=== PATIENT | female | born 1975 | race African-American/Black ===

== ENCOUNTER 2016-10-10 14:08 | Emergency (ER) | payer OTHER ==
[~2016-10-10] VITALS: Ht 162.6 cm; Wt 115.2 kg
[~2016-10-10 14:08] MED LIST: COLD MEDICINE OR; FLEXERIL OR; MOTR200T4 PO; MULTIVIT PO; NAPR500T OR; TRAM50TA2 OR
[2016-10-10 14:43] VITALS: BP 131/64
[2016-10-10] MEDS ORDERED: VITA200028 PO (14:49)
[2016-10-10] MEDS ORDERED: SUMA100T2 PO (14:49)
[2016-10-10] MEDS ORDERED: TOPI200T4 PO (14:49)
[2016-10-10] MEDS ORDERED: PRIL20TA2 PO (14:49)
[2016-10-10] MEDS ORDERED: TRAZ10TA GT (14:49)
[2016-10-10] MEDS ORDERED: AUGM875T27 PO (16:24)
== END 2016-10-10 16:32 | disposition home or self-care (01) ==
LOC: M ED 16:23
DX: L03.032 Cellulitis of left toe (principal); Z79.899 Other long term (current) drug therapy

== ENCOUNTER → 2016-10-29 | Outpatient (CLI) | payer OTHER ==
[~2016-10-29] MED LIST changes: +AUGM875T27 PO; +PRIL20TA2 PO; +SUMA100T2 PO; +TOPI200T4 PO; +TRAZ10TA GT; +VITA200028 PO
[2016-10-29 14:11] LABS: BASO % 0.2 % (0.0-1.0); EOS # 0.1 K/mm3 (0.0-0.50); EOS % 1.9 % (0.0-3.0); LARGE UNSTAINED CELL # 0.1 K/mm3 (0.0-0.4); LYMPH # 1.5 K/mm3 (1.5-4.5); LYMPH % 20.9 % (24.0-44.0); MEAN CORPUSCULAR HGB CONC 31.6 g/dl (32.0-36.5); MEAN CORPUSCULAR VOLUME 91.7 fl (80.0-96.0); MONO # 0.3 K/mm3 (0.0-0.8); MONO % 4.7 % (0.0-5.0); NEUTROPHILS # 5.1 K/mm3 (1.8-7.7); NEUTROPHILS % 71.4 % (36.0-66.0); PLATELET COUNT, AUTOMATED 260 k/mm3 (150-450); RED CELL DISTRIBUTION WIDTH 13.2 % (11.5-14.5); WHITE BLOOD COUNT 7.1 K/mm3 (4.0-10.0)
[2016-10-29 14:25] LABS: ALBUMIN 3.8 GM/DL (3.2-5.2); ALBUMIN/GLOBULIN RATIO 1.03 (1.00-1.93); ALKALINE PHOSPHATASE 83 U/L (45-117); ALT/SGPT 19 U/L (12-78); ANION GAP 8 MEQ/L (8-16); AST/SGOT 17 U/L (15-37); BILIRUBIN,TOTAL 0.7 MG/DL (0.2-1.0); BLOOD UREA NITROGEN 14 MG/DL (7-18); CALCIUM LEVEL 8.9 MG/DL (8.5-10.1); CARBON DIOXIDE LEVEL 25 MEQ/L (21-32); CHLORIDE LEVEL 109 MEQ/L (98-107); CHOLESTEROL LEVEL 160 MG/DL (<200); CREATININE FOR GFR 0.95 MG/DL (0.55-1.02); FREE T4 0.91 NG/DL (0.76-1.46); GLOMERULAR FILTRATION RATE > 60.0 (>58); GLUCOSE, FASTING 81 MG/DL (70-105); POTASSIUM SERUM 3.8 MEQ/L (3.5-5.1); SODIUM LEVEL 142 MEQ/L (136-145); TOTAL PROTEIN 7.5 GM/DL (6.4-8.2); TRIGLYCERIDES LEVEL 47 MG/DL (<150); VITAMIN B12 LEVEL 1155 PG/ML
== END ==
LOC: M LAB 13:10
PROVIDERS: ATTEND Family Medicine
DX: E55.9 Vitamin D deficiency, unspecified (principal)

== ENCOUNTER 2017-03-21 08:20 | Emergency (ER) | payer OTHER ==
[~2017-03-21] VITALS: Ht 162.6 cm; Wt 111.4 kg
[~2017-03-21 08:20] MED LIST changes: -AUGM875T27 PO; +AUGM875T28 PO; -TOPI200T4 PO; +TOPI200T7 PO
--- NOTE | 2017-03-21 10:19 | REP ---
Left foot four views : There is no fracture or dislocation. Mineralization and joint spaces are normal. There are no calcifications or foreign bodies. Impression: Negative left foot. There is no change from 03/31/2016. . Signed by Otoniel Clark MD 03/21/2017 10:09 A
[2017-03-21] MEDS ORDERED: NAPR500T PO (10:29)
[2017-03-21 10:38] VITALS: BP 135/76
== END 2017-03-21 10:40 | disposition home or self-care (01) ==
LOC: M ED 08:20
DX: S93.602A Unspecified sprain of left foot, initial encounter (principal); X58.XXXA Exposure to other specified factors, initial encounter; Y92.89 Other specified places as the place of occurrence of the external cause; Y93.89 Activity, other specified; Y99.9 Unspecified external cause status

== ENCOUNTER 2017-04-10 20:39 | Emergency (ER) | payer OTHER ==
[~2017-04-10] VITALS: Ht 162.6 cm; Wt 236.0 kg
[2017-04-10] MEDS ORDERED: KETOROLAC 30 MG/ML VIAL (J1885) IV ONE (21:15)
[2017-04-10 22:07] LABS: BASO % 0.4 % (0.0-1.0); EOS # 0.3 K/mm3 (0.0-0.50); EOS % 2.6 % (0.0-3.0); LARGE UNSTAINED CELL # 0.2 K/mm3 (0.0-0.4); LYMPH # 2.7 K/mm3 (1.5-4.5); LYMPH % 24.2 % (24.0-44.0); MEAN CORPUSCULAR HEMOGLOBIN 29.7 pg (27.0-33.0); MEAN CORPUSCULAR HGB CONC 32.2 g/dl (32.0-36.5); MEAN CORPUSCULAR VOLUME 92.3 fl (80.0-96.0); MONO # 0.4 K/mm3 (0.0-0.8); MONO % 4.2 % (0.0-5.0); NEUTROPHILS # 6.7 K/mm3 (1.8-7.7); NEUTROPHILS % 66.6 % (36.0-66.0); PLATELET COUNT, AUTOMATED 245 k/mm3 (150-450); RED CELL DISTRIBUTION WIDTH 13.2 % (11.5-14.5); WHITE BLOOD COUNT 10.1 K/mm3 (4.0-10.0)
[2017-04-10 22:26] LABS: ALBUMIN/GLOBULIN RATIO 1.18 (1.00-1.93); ALKALINE PHOSPHATASE 64 U/L (45-117); ALT/SGPT 28 U/L (12-78); AMYLASE 73 U/L (25-115); ANION GAP 9 MEQ/L (8-16); AST/SGOT 20 U/L (15-37); BILIRUBIN,DIRECT 0.2 MG/DL (0.0-0.2); BILIRUBIN,TOTAL 0.8 MG/DL (0.2-1.0); BLOOD UREA NITROGEN 11 MG/DL (7-18); CALCIUM LEVEL 8.6 MG/DL (8.5-10.1); CARBON DIOXIDE LEVEL 27 MEQ/L (21-32); CHLORIDE LEVEL 106 MEQ/L (98-107); CREATININE FOR GFR 0.76 MG/DL (0.55-1.02); GLOMERULAR FILTRATION RATE > 60.0 (>58); GLUCOSE, FASTING 73 MG/DL (70-105); POTASSIUM SERUM 3.7 MEQ/L (3.5-5.1); SODIUM LEVEL 142 MEQ/L (136-145); TOTAL PROTEIN 7.4 GM/DL (6.4-8.2)
--- NOTE | 2017-04-10 22:44 | REP ---
Clinical: Acute right lower quadrant pain. Findings: Evaluation is limited by the lack of oral and IV contrast material as well as relative paucity of intraperitoneal fat. Lung bases are clear. Visualized heart and pericardium grossly normal. Liver, spleen, pancreas, gallbladder, bilateral adrenal glands and kidneys are relatively normal for noncontrast evaluation. Renal hypodensities suggest cysts and may be correlated with ultrasound as necessary. The enteric system is without obstruction or obvious acute inflammatory process. A normal terminal ileum and appendix are identified in the right lower quadrant. Colonic and sigmoid diverticulosis noted without obvious acute diverticulitis. Pelvis demonstrates partially collapsed normal bladder and age-appropriate uterus/adnexa. Calcifications in the pelvis likely represent phleboliths although small ureteral calcification cannot be excluded and may warrant correlation with urinalysis. No ascites. No free air. Small 2 cm supraumbilical ventral hernia (image 62). Surrounding musculoskeletal structures without focal osseous abnormality. Impression: 1. Significantly limited examination due to the lack of contrast material and relative paucity of intraperitoneal fat. No definite acute abdominopelvic pathology appreciated. 2. Normal appendix and right lower quadrant. No free fluid. 3. Suspected renal hypodensities compatible with cysts may be corroborated by ultrasound as necessary. 4. Small fat containing supraumbilical ventral hernia without adjacent inflammatory stranding. 5. Calcifications in the pelvis likely represent phleboliths as no obvious hydroureteronephrosis is appreciated. However correlation with physical examination and urinalysis may be warranted. Signed by Jesus Ashford MD 04/10/2017 10:36 P
[2017-04-10] MEDS ORDERED: NAPR500T PO (23:10)
[2017-04-10] MEDS ORDERED: traMADol 50 MG TAB (BULK 4 TAB ED) PO ONE (23:15)
[2017-04-10 23:16] VITALS: BP 132/88
--- NOTE | 2017-04-11 09:40 | ED PDOC ---
Post-Departure Follow-Up radiology report faxed to Marci Ramirez Sarah MD Apr 11, 2017 09:40
== END 2017-04-10 23:37 | disposition home or self-care (01) ==
LOC: M ED 20:39
DX: R10.2 Pelvic and perineal pain (principal); Z72.0 Tobacco use
CPT/HCPCS: 74177; 80048; 80076; 81001; 82150; 83690; 85025; 87491; 87591; 96374; 99283; J1885

== ENCOUNTER → 2017-04-10 | Outpatient (REF) | payer OTHER ==
[~2017-04-10] MED LIST changes: +NAPR500T PO
== END ==
LOC: M SFHCLERA 19:38
PROVIDERS: ATTEND Nurse Practitioner Family
DX: R10.9 Unspecified abdominal pain (principal)

== ENCOUNTER → 2017-05-28 | Outpatient (CLI) | payer OTHER ==
[~2017-05-28] MED LIST changes: +ISOVUE-370 76% 100ML VIAL (Q9967) As Ordered ONE
--- NOTE | 2017-05-29 09:20 | REP ---
Clinical: Abnormal weight loss. Technique: Axial contrast enhanced images from the thoracic inlet to the upper abdomen using 100 ml Isovue 370 intravenous contrast material with coronal and sagittal re-formations. Comparison: 04/02/2008. Findings: The bilateral lung randolph are well-aerated, symmetric and clear. No focal consolidation, nodule or mass lesion. No pleural effusion/reaction or pneumothorax. Tracheobronchial tree is patent. No axillary, hilar, or mediastinal adenopathy. The mediastinum demonstrates normal thoracic aorta, pulmonary vasculature and heart/pericardium. Impression: No acute mediastinal or pleuroparenchymal process. Signed by Jesus Ashford MD 05/29/2017 09:11 A
== END ==
LOC: M RAD 14:57
PROVIDERS: ATTEND Family Medicine
DX: R63.4 Abnormal weight loss (principal)
CPT/HCPCS: 71260; Q9967

== ENCOUNTER → 2017-05-29 | Outpatient (CLI) | payer OTHER ==
[~2017-05-29] MED LIST changes: -ISOVUE-370 76% 100ML VIAL (Q9967) As Ordered ONE
--- NOTE | 2017-05-30 08:31 | REP ---
Clinical: Followup renal cyst. Comparison: CT dated 04/10/2017. Technique: Real time samson scale and color evaluation using curved array transducer. Findings: The right kidney is normal in contour, size, echogenicity, and reniform shape without hydronephrosis, nephrolithiasis, cystic or renal mass lesion. Right kidney measures 9.8 x 6.6 x 5.0 cm. The left kidney is somewhat limited in evaluation due to adjacent bowel gas obscuring the upper pole. The kidney measures approximately 10.9 x 5.5 x 4.8 cm without evidence for hydronephrosis, nephrolithiasis or perinephric collection. The 2.0 x 1.8 x 1.9 cm simple cyst is identified along the lower pole of the left kidney. A vague hyperechoic upper pole lesion from the left kidney cannot be excluded based on current examination. Impression: 1. Normal right kidney 2. Left kidney is somewhat incompletely evaluated due to overlying bowel gas and includes a 2.0 cm simple left lower pole cyst. However left upper pole lesion cannot be excluded. Given the technical difficulties with this exam, pre and postcontrast CT of the abdomen may be warranted for further investigation. Signed by Jesus Ashford MD 05/30/2017 08:22 A
== END ==
LOC: M RAD 09:52
PROVIDERS: ATTEND Family Medicine
DX: N28.1 Cyst of kidney, acquired (principal)

== ENCOUNTER → 2017-07-18 | Outpatient (CLI) | payer OTHER ==
[~2017-07-18] MED LIST changes: +GASTROGRAFIN SOLUTION 30ML (Q9963) As Ordered ONE; +ISOVUE-370 76% 100ML VIAL (Q9967) As Ordered ONE
--- NOTE | 2017-07-19 07:34 | REP ---
CONTRAST CT ABDOMEN AND PELVIS: CLINICAL: Abdominal pain and weight loss. TECHNIQUE: Axial contrast enhanced images from the lung bases to the pubic symphysis (per protocol) 100 mL Isovue 370 intravenous contrast material with precontrast images of the abdomen as well as coronal and sagittal reformations. COMPARISON: 04/10/2017 FINDINGS: The lungs bases demonstrate small subpleural noncalcified densities which may reflect scarring/mild dependent atelectasis. Visualized portion of the heart and pericardium are normal. The liver, spleen, pancreas, gallbladder, bilateral adrenal glands and kidneys are relatively normal/stable. Incidental renal hypodensities measuring up to 2.5 cm compatible with cysts. The enteric system is without obstruction or acute inflammatory process. The pelvis demonstrates normal bladder and age appropriate uterus and adnexa. No ascites. No free air. No adenopathy. Normal abdominal aorta. No aneurysm or dissection. Musculoskeletal structures are intact. IMPRESSION: Renal hypodensities compatible with cysts. No further acute abdominopelvic pathology appreciated. Signed by Jesus Ashford MD 07/19/2017 08:15 A
== END ==
LOC: M RAD 10:30
PROVIDERS: ATTEND Family Medicine
DX: R63.4 Abnormal weight loss (principal)
CPT/HCPCS: 74178; Q9963; Q9967

== ENCOUNTER 2017-08-23 06:29 | Emergency (ER) | payer OTHER ==
[2017-08-23] MEDS: MORPHINE 10 MG/ML 1ML VIAL IM (07:40)
== END 2017-08-23 08:38 | disposition home or self-care (01) ==
LOC: M ED 06:29
DX: G89.18 Other acute postprocedural pain (principal); G47.33 Obstructive sleep apnea (adult) (pediatric); K21.9 Gastro-esophageal reflux disease without esophagitis; F17.210 Nicotine dependence, cigarettes, uncomplicated; Z79.899 Other long term (current) drug therapy; Z98.890 Other specified postprocedural states
CPT/HCPCS: 96372

== ENCOUNTER 2017-09-09 14:16 | Emergency (ER) | payer OTHER ==
[2017-09-09 18:25] LABS: INFLUENZA A AMPLIFICATION NEGATIVE (NEGATIVE); INFLUENZA B AMPLIFICATION NEGATIVE (NEGATIVE)
== END 2017-09-09 18:58 | disposition home or self-care (01) ==
LOC: M ED 14:16
DX: R19.7 Diarrhea, unspecified (principal); J02.9 Acute pharyngitis, unspecified; G47.33 Obstructive sleep apnea (adult) (pediatric); K21.9 Gastro-esophageal reflux disease without esophagitis; F41.9 Anxiety disorder, unspecified; F33.9 Major depressive disorder, recurrent, unspecified; F17.210 Nicotine dependence, cigarettes, uncomplicated; Z79.899 Other long term (current) drug therapy
CPT/HCPCS: 87502

== ENCOUNTER → 2017-12-17 | Outpatient (REF) | payer OTHER ==
[2017-12-17 18:22] LABS: CONTROL LINE HCG INT CTR LINE PRESENT; HCG, SERUM QUALITATIVE NEGATIVE (NEGATIVE)
== END ==
LOC: M LABNEURO 13:10
DX: R11.0 Nausea (principal)

== ENCOUNTER 2018-02-22 10:26 | Emergency (ER) | payer OTHER | END 2018-02-22 11:17 | disposition home or self-care (01) | LOC: M ED 10:26 | DX: L02.211 Cutaneous abscess of abdominal wall (principal); K21.9 Gastro-esophageal reflux disease without esophagitis; F41.9 Anxiety disorder, unspecified; F32.9 Major depressive disorder, single episode, unspecified; G43.909 Migraine, unspecified, not intractable, without status migrainosus; F17.200 Nicotine dependence, unspecified, uncomplicated; Z79.899 Other long term (current) drug therapy | CPT/HCPCS: 99282 ==

== ENCOUNTER 2018-03-01 00:42 | Emergency (ER) | payer OTHER ==
[2018-03-01] MEDS: ACETAMINOPHEN 325 MG TAB PO (01:40)
[2018-03-01] MEDS: traMADol 50 MG TAB PO (01:41)
== END 2018-03-01 02:08 | disposition home or self-care (01) ==
LOC: M ED 00:42
DX: M17.12 Unilateral primary osteoarthritis, left knee (principal); M25.562 Pain in left knee; Z79.899 Other long term (current) drug therapy
CPT/HCPCS: 73564

== ENCOUNTER 2018-03-21 10:56 | Emergency (ER) | payer MEDICAID, OTHER | END 2018-03-21 12:47 | disposition home or self-care (01) | LOC: M ED 10:56 | DX: M65.272 Calcific tendinitis, left ankle and foot (principal); G43.909 Migraine, unspecified, not intractable, without status migrainosus; G47.33 Obstructive sleep apnea (adult) (pediatric); K21.9 Gastro-esophageal reflux disease without esophagitis; F41.9 Anxiety disorder, unspecified; F33.9 Major depressive disorder, recurrent, unspecified; Z79.899 Other long term (current) drug therapy; F17.210 Nicotine dependence, cigarettes, uncomplicated | CPT/HCPCS: 73630 ==

== ENCOUNTER → 2018-07-09 | Outpatient (CLI) | payer OTHER, MEDICAID ==
[2018-07-09 12:14] LABS: HEPATITIS C VIRUS ABY INDEX 0.1 INDEX (<0.8)
[2018-07-09 12:14] LABS: HIV 1&2 SCREEN CENTAUR NEGATIVE (NEGATIVE)
== END ==
LOC: M LAB 10:33
DX: Z11.3 Encounter for screening for infections with a predominantly sexual mode of transmission (principal)
CPT/HCPCS: 86803

== ENCOUNTER → 2018-07-21 | Outpatient (CLI) | payer OTHER, MEDICAID ==
[2018-07-21 17:26] LABS: APPEARANCE, URINE CLEAR (CLEAR); BACTERIA, URINE AUTO NEGATIVE (NEGATIVE); BILIRUBIN, URINE AUTO NEGATIVE (NEGATIVE); BLOOD, URINE BLOOD NEGATIVE (NEGATIVE); COLOR, URINE YELLOW (YELLOW); GLUCOSE, URINE (UA) AUTO NEGATIVE (NEGATIVE); KETONE, URINE AUTO NEGATIVE (NEGATIVE); LEUKOCYTE ESTERASE, URINE AUTO NEGATIVE (NEGATIVE); NITRITE, URINE AUTO NEGATIVE (NEGATIVE); PROTEIN, URINE AUTO NEGATIVE (NEGATIVE); RBC, URINE AUTO 1 /HPF (0-3); SPECIFIC GRAVITY URINE AUTO 1.018 (1.002-1.035); SQUAMOUS EPITHELIAL CELL UR AU 2 /HPF (0-6); UROBILINOGEN, URINE AUTO 0.2 mg/dL (0.0-2.0); WBC, URINE AUTO 1 /HPF (0-3)
[2018-07-21 17:29] LABS: BASO % 0.6 % (0.0-1.0); EOS # 0.2 10^3/uL (0.0-0.50); EOS % 2.9 % (0.0-3.0); HEMATOCRIT 39.2 % (36.0-47.0); HEMOGLOBIN 12.5 g/dl (12.0-15.5); IMMATURE GRANULOCYTE % 0.2 % (0-3.0); LYMPH # 2.2 10^3/uL (1.5-4.5); LYMPH % 33.1 % (24.0-44.0); MEAN CORPUSCULAR HEMOGLOBIN 29.1 pg (27.0-33.0); MEAN CORPUSCULAR HGB CONC 31.9 g/dl (32.0-36.5); MEAN CORPUSCULAR VOLUME 91.2 fl (80.0-96.0); MONO # 0.4 10^3/uL (0.0-0.8); MONO % 6.6 % (0.0-5.0); NEUTROPHILS # 3.8 10^3/uL (1.8-7.7); NEUTROPHILS % 56.6 % (36.0-66.0); PLATELET COUNT, AUTOMATED 254 10^3/uL (150-450); RED CELL DISTRIBUTION WIDTH 12.7 % (11.5-14.5); WHITE BLOOD COUNT 6.6 10^3/uL (4.0-10.0)
[2018-07-21 17:53] LABS: ALBUMIN 3.7 GM/DL (3.2-5.2); ALKALINE PHOSPHATASE 76 U/L (45-117); ALT/SGPT 21 U/L (12-78); ANION GAP 6 MEQ/L (8-16); AST/SGOT 17 U/L (7-37); BILIRUBIN,TOTAL 0.5 MG/DL (0.2-1.0); BLOOD UREA NITROGEN 14 MG/DL (7-18); CALCIUM LEVEL 9.1 MG/DL (8.5-10.1); CARBON DIOXIDE LEVEL 29 MEQ/L (21-32); CHLORIDE LEVEL 104 MEQ/L (98-107); CHOLESTEROL LEVEL 182 MG/DL (<200); CHOLESTEROL RISK RATIO 3.568 (<5); CREATININE FOR GFR 0.76 MG/DL (0.55-1.30); FREE T4 0.81 NG/DL (0.76-1.46); GLOMERULAR FILTRATION RATE > 60.0 (>58); GLUCOSE, FASTING 69 MG/DL (70-100); HDL CHOLESTEROL 51 MG/DL (>40); LDL CHOLESTEROL 119 MG/DL (<100); NON-HDL-C 131 MG/DL; POTASSIUM SERUM 4.4 MEQ/L (3.5-5.1); SODIUM LEVEL 139 MEQ/L (136-145); THYROID STIMULATING HORMONE 0.684 uIU/ML (0.358-3.740); TOTAL 25(OH) VITAMIN D 29.8 NG/ML (30.0-100.0); TOTAL PROTEIN 7.4 GM/DL (6.4-8.2); TRIGLYCERIDES LEVEL 62 MG/DL (<150); VITAMIN B12 LEVEL 668 PG/ML (247-911)
[2018-07-21 18:07] LABS: ESTIMATED AVERAGE GLUCOSE 103 MG/DL (60-110); HEMOGLOBIN A1c 5.2 %
== END ==
LOC: M LRY 11:33
DX: K21.9 Gastro-esophageal reflux disease without esophagitis (principal); E55.9 Vitamin D deficiency, unspecified; G47.33 Obstructive sleep apnea (adult) (pediatric)
CPT/HCPCS: 84443

== ENCOUNTER 2019-02-12 00:50 | Emergency (ER) | payer OTHER, MEDICAID ==
[~2019-02-12] VITALS: Ht 162.6 cm; Wt 126.4 kg
[2019-02-12 00:50] VITALS: BP 139/66
[~2019-02-12 00:50] MED LIST changes: +AMOX500C PO; +BACT800T5 PO; -GASTROGRAFIN SOLUTION 30ML (Q9963) As Ordered ONE; -ISOVUE-370 76% 100ML VIAL (Q9967) As Ordered ONE; +JENC0.35 PO; +LEVOTAB10 PO; +LIDO1SOL8 MT; +MOBI4TAB PO; +NAPR-837 PO; -NAPR500T PO; +NORE0.353 PO; +OXYC-517 PO; +VITA50005 PO; +ZOFR4TAB14 PO; +ZYRT10CA PO
[2019-02-12] MEDS ORDERED: PREV1CAP PO (00:58)
== END 2019-02-12 01:48 | disposition left against medical advice (07) ==
LOC: M ED 00:50
DX: S30.854A Superficial foreign body of vagina and vulva, initial encounter (principal); Y92.9 Unspecified place or not applicable; Y93.9 Activity, unspecified; Y99.9 Unspecified external cause status; Z53.21 Procedure and treatment not carried out due to patient leaving prior to being seen by health care provider

== ENCOUNTER 2019-02-12 07:33 | Emergency (ER) | payer MEDICAID, OTHER ==
[~2019-02-12] VITALS: Ht 162.6 cm; Wt 125.3 kg
[~2019-02-12 07:33] MED LIST changes: +PREV1CAP PO
[2019-02-12 07:34] VITALS: BP 117/71
== END 2019-02-12 08:23 | disposition home or self-care (01) ==
LOC: M ED 07:33
DX: S30.854A Superficial foreign body of vagina and vulva, initial encounter (principal); X58.XXXA Exposure to other specified factors, initial encounter; Y92.9 Unspecified place or not applicable; Y93.89 Activity, other specified; Y99.9 Unspecified external cause status; K21.9 Gastro-esophageal reflux disease without esophagitis; G47.30 Sleep apnea, unspecified; F41.9 Anxiety disorder, unspecified; F32.9 Major depressive disorder, single episode, unspecified; Z72.0 Tobacco use; Z79.899 Other long term (current) drug therapy

== ENCOUNTER → 2019-04-08 | Outpatient (CLI) | payer OTHER ==
[2019-04-08 13:05] LABS: BASO % 0.5 % (0.0-1.0); EOS # 0.2 10^3/uL (0.0-0.50); EOS % 3.9 % (0.0-3.0); HEMATOCRIT 37.6 % (36.0-47.0); HEMOGLOBIN 12.1 g/dl (12.0-15.5); LYMPH # 1.7 10^3/uL (1.5-4.5); LYMPH % 28.2 % (24.0-44.0); MEAN CORPUSCULAR HEMOGLOBIN 28.6 pg (27.0-33.0); MEAN CORPUSCULAR HGB CONC 32.2 g/dl (32.0-36.5); MEAN CORPUSCULAR VOLUME 88.9 fl (80.0-96.0); MONO # 0.3 10^3/uL (0.0-0.8); MONO % 5.5 % (0.0-5.0); NEUTROPHILS # 3.8 10^3/uL (1.8-7.7); NEUTROPHILS % 61.7 % (36.0-66.0); PLATELET COUNT, AUTOMATED 232 10^3/uL (150-450); RED BLOOD COUNT 4.23 10^6/uL (4.00-5.40); WHITE BLOOD COUNT 6.1 10^3/uL (4.0-10.0)
[2019-04-08 13:17] LABS: INR 1.09; PROTHROMBIN TIME 13.8 SECONDS (11.8-14.0)
[2019-04-08 13:18] LABS: PARTIAL THROMBOPLASTIN TIME 28.1 SECONDS (25.0-38.4)
[2019-04-08 13:33] LABS: ALBUMIN 3.6 GM/DL (3.2-5.2); ALT/SGPT 23 U/L (12-78); BILIRUBIN,TOTAL 0.5 MG/DL (0.2-1.0); BLOOD UREA NITROGEN 12 MG/DL (7-18); C REACTIVE PROTEIN QUANTITATIV < 0.30 MG/DL (0.00-0.30); CALCIUM LEVEL 9.1 MG/DL (8.5-10.1); CARBON DIOXIDE LEVEL 29 MEQ/L (21-32); CHLORIDE LEVEL 108 MEQ/L (98-107); CREATININE FOR GFR 0.88 MG/DL (0.55-1.30); FERRITIN 31 NG/ML (8-252); GLOMERULAR FILTRATION RATE > 60.0 (>58); GLUCOSE, FASTING 87 MG/DL (70-100); IRON (FE) 88 UG/DL (50-170); PERCENT SATURATION 25.2 % (13.2-45.0); POTASSIUM SERUM 3.8 MEQ/L (3.5-5.1); PTH INTACT 20.9 PG/ML (18.5-88.0); SODIUM LEVEL 142 MEQ/L (136-145); THYROID STIMULATING HORMONE 0.381 uIU/ML (0.358-3.740); TOTAL IRON BINDING CAPACITY 349 UG/DL (250-450); TOTAL PROTEIN 7.1 GM/DL (6.4-8.2); VITAMIN B12 LEVEL 410 PG/ML (247-911)
[2019-04-08 13:38] LABS: ERYTHROCYTE SEDIMENTATION RATE 8 mm/hr (0-20)
[2019-04-08 17:35] LABS: COLLAGEN EPINEPHRINE 93 SECONDS (74-162)
[2019-04-11 00:06] LABS: ANTINUCLEAR ANTIBODIES DIRECT Negative (Negative); F8 ACTIVITY FOR F8 PANEL 114 % (56-140); F8 ACTIVITY vWB FOR F8 PANEL 151 % (50-200); F8 ANTIGEN FOR F8 PANEL 154 % (50-200)
== END ==
LOC: M LAB 11:55
PROVIDERS: ATTEND Family Medicine
DX: M85.80 Other specified disorders of bone density and structure, unspecified site (principal); R23.3 Spontaneous ecchymoses; F33.9 Major depressive disorder, recurrent, unspecified

== ENCOUNTER → 2019-06-30 | Outpatient (CLI) | payer OTHER, MEDICAID ==
--- NOTE | 2019-07-07 04:07 | ECWPNPC ---
PATIENT NAME: MARIOLA MG : 1975 GENDER: FEMALE VISIT DATE: 06/30/2019 DISCHARGE DATE: 06/30/19 1645 VISIT LOCKED DATE TIME: PHYSICIAN: JENA AHUMADA MD RESOURCE: JENA AHUMADA MD REASON FOR APPOINTMENT 1. LBP/KNEES/FEET PAIN HISTORY OF PRESENT ILLNESS PAIN SCREENING: PATIENT HAS A COMPLAINT OF ACUTE OR CHRONIC PAIN :YES 43 YEAR OLD FEMALE PATIENT WITH A HISTORY OF CHRONIC LOW BACK, KNEES, AND FEET PAIN. THE PATIENT DESCRIBES THE PAIN ACHING, SORE, AND CONTINUOUS WITH A PAIN SCORE OF 6-10/10 DEPENDING ON PHYSICAL ACTIVITY. THE PATIENT STATES HER PAIN IS AFFECTING HER ABILITY TO PERFORM HER DAILY ACTIVITIES SUCH WORKING, MOVING AROUND, STANDING FOR TOO LONG, AND CLEANING HER HOUSE. THE PATIENT SAYS SHE IS BEING FOLLOWED BY [facility] AND BY HER DOCTOR IN HEATH. THE PATIENT SAYS SHE RECEIVED INJECTION THERAPY IN THE PAST THAT RESULTED IN MAKING HER PAIN WORSE. PATIENT DENIES UNEXPLAINABLE WEIGHT LOSS, FEVER, CHILLS, NEW CHANGES ON HER URINARY OR BOWEL CONTROL. FALL RISK SCREENING: SCREENING :NO FALLS REPORTED IN THE LAST YEAR CURRENT MEDICATIONS TAKING VITAMIN D 70892 U TABLET 1 TABLET ORALLY MONTHLY TAKING SUMATRIPTAN _ SOLUTION ORALLY PRN TAKING PREVACID 30 MG CAPSULE DELAYED RELEASE 1 CAPSULE ORALLY BID, NOTES: TAKES 40 MG BID TAKING MAY USE 1 TAB ORALLY ZYZAL PO DAILY AT HS TAKING ZYRTEC ALLERGY 10 MG TABLET 1 TABLET ORALLY ONCE DAILY NEEDED MEDICATION LIST REVIEWED AND RECONCILED WITH THE PATIENT PAST MEDICAL HISTORY OBESITY GERD MIGRAINES KNEE AND FOOT PAIN ALLERGIES N.K.D.A. SURGICAL HISTORY BREAST REDUCTION 08/2016 FAMILY HISTORY FATHER: ALIVE MOTHER: , DIAGNOSED WITH DIABETES SIBLINGS: ALIVE 2 BROTHER(S) . 2 SON(S) - HEALTHY. MOTHER- CANCER FATHER CANCER 1 BROTHER ASTHMA, DIABETES. SOCIAL HISTORY GENERAL: TOBACCO USE ARE YOU A:CURRENT SOME DAY SMOKER SMOKING CESSATION INFORMATION GIVEN06/30/2019 HIV / HEP-C SCREENING HIV TEST OFFERED TO PATIENT:YES DATE OFFERED:04/10/2017 TEST ACCEPTED:NO HEP-C TEST OFFERED TO PATIENT:NO REASON:PATIENT DECLINED OTHERS AT HOME: CHILDREN. HOUSING: RENTS APARTMENT. EDUCATION LEVEL OF EDUCATION:NOT FINISHED HIGH SCHOOL DIET: REGULAR. LANGUAGE LANGUAGES SPOKEN:PALESTINIAN DOMESTIC VIOLENCE STATUS:SINGLE DO YOU FEEL SAFE IN YOUR ENVIRONMENT?YES NEW PATIENT PAIN DIARY TODAY'S VISITNOTES PATIENT DESCRIBES PAIN :ACHING, HAVE IT ALL THE TIME, SORE WAKES ME UP FROM SLEEP FROM 0-10, WHAT LEVEL IS YOUR PAIN TODAY?7 PRECIPITATING FACTORS STANDING, BENDING, STRETCHING, PUTTING PRESSURE ON THEM ALLEVIATING FACTORS ICE ON FEET AND KNEES, BRACE ON RIGHT FOOT IMPACT ON FUNCTION ONLY ABLE TO WORK ABOUT 4 HOURS IS THERE A CHANCE YOU COULD BE ?NO HAVE YOU BEEN SICK IN THE LAST WEEK (COLD, COUGH, FEVER, FLU, ETC)YES COLD DO YOU TAKE ANY BLOOD THINNERS?NO DO YOU HAVE ANY RASHES OR OPEN SORES?NO ANY CHANGE IN BOWEL OR BLADDER CONTROL?NO ARE YOU ALLERGIC TO SHELLFISH OR IV DYE?NO ARE YOU DIABETIC?NO DO YOU HAVE A PACEMAKER OR DEFIBRILLATOR?NO ANY NEW PROBLEMS WITH MEDICINES OR NEW ALLERGIESNO HAVE YOU FALLEN IN THE LAST 6 MONTHS?NO DO YOU USE ANY TYPE OF TOBACCO (SMOKE, SMOKELESS, CHEW, ETC.)YES ARE YOU ABUSED, NEGLECTED, OR IN AN UNSAFE ENVIRONMENT?NO DO YOU HAVE THOUGHTS OF HURTING YOURSELF OR SOMEONE ELSE?NO DO YOU NEED ANY PRESCRIPTIONS?YES DO YOU HAVE ANY OTHER QUESTIONS OR CONCERNS?YES OPTIONS FOR PAIN CONTROL INTENSITY SCALE REVIEWEDNUMBER RECREATIONAL DRUG USE DRUG USE?YES HOW OFTEN AND HOW MUCH? SOCIALLY, AT LEAST ONCE A MONTH SMOKES TIMBO, STATES IT HAS BEEN EVERY WEEKEND LATELY, LAST SMOKED ON SATURDAY EXERCISE: NO REGULAR EXERCISE. LEARNING BARRIERS / SPECIAL NEEDS BARRIERS TO LEARNING?NO HEARING IMPAIRED?NO VISION IMPAIRED?YES COGNITIVELY IMPAIRED?NO :CORRECTIVE LENSES GLASSES READINESS TO LEARN?YES LEARNING PREFERENCES?NO LEARNING CAPABILITIES PRESENT?YES EMOTIONAL BARRIERS?NO SPECIAL DEVICES?NO SPRAY GUN STRIPER NEEDED?NO PAIN CLINIC PFS, CLERGY, PUBLIC HEALTH REFERRALS PFS REFERRAL NEEDED?NO CLERGY REFERRAL NEEDED?NO PUBLIC HEALTH REFERRAL NEEDED?NO WAS THE PROVIDER NOTIFIED OF ANY PERTINENT INFO?YES HAS THE PATIENT BEEN EDUCATED REGARDING HIS/HER PLAN OF CARE?YES HAS THE PATIENT BEEN EDUCATED REGARDING PAIN, THE RISK FOR PAIN, THE IMPORTANCE OF EFFECTIVE PAIN MANAGEMENT, AND THE PAIN ASSESSMENT PROCESS?YES LATEX QUESTIONNAIRE LATEX ALLERGY : HAVE YOU EVER DEVELOPED ANY TYPE OF REACTION AFTER HANDLING LATEX PRODUCTS SUCH RUBBER GLOVES, CONDOMS, DIAPHRAGMS, BALLOONS, SOCKS, OR UNDERWEAR?NO LATEX ALLERGY : HAVE YOU EVER DEVELOPED ANY TYPE OF REACTION DURING OR AFTER DENTAL APPOINTMENT, VAGINAL/RECTAL EXAMINATION, SURGICAL PROCEDURE, OR ANY OTHER EXPOSURE?NO LATEX RISK : HAVE YOU EVER HAD ANY DIFFICULTY BREATHING OR HIVES AFTER EATING OR HANDLING ANY FRUITS, OR VEGETABLES; SUCH KIWI, BANANAS, STONE FRUITS, OR CHESTNUTSNO LATEX RISK : DO YOU HAVE A PREVIOUS PERSONAL HISTORY OF MORE THAN NINE SURGERIES, SPINA BIFIDA, OR REPEATED CATHERIZATIONS? NO LATEX RISK : ARE YOU FREQUENTLY EXPOSED TO LATEX PRODUCTS IN YOUR OCCUPATION?NO DATE ASKED : 06/30/2019 CAFFEINE CAFFEINE USE?NO ADVANCE DIRECTIVE ADVANCE DIRECTIVE DISCUSSED WITH PATIENT:NO STATES SHE HAS NO ADVANCED DIRECTIVES AND DECLINES INFORMATION AT THIS TIME 06/30/19 [facility] [place] NO LUTHERAN BELIEFS THAT WOULD IMPACT HEALTH CARE. MARITAL STATUS: SINGLE. ALCOHOL SCREENING DID YOU HAVE A DRINK CONTAINING ALCOHOL IN THE PAST YEAR?YES HOW OFTEN DID YOU HAVE A DRINK CONTAINING ALCOHOL IN THE PAST YEAR?MONTHLY OR LESS (1 POINT) HOW MANY DRINKS DID YOU HAVE ON A TYPICAL DAY WHEN YOU WERE DRINKING IN THE PAST YEAR?1 OR 2 (0 POINTS) HOW OFTEN DID YOU HAVE SIX OR MORE DRINKS ON ONE OCCASION IN THE PAST YEAR?NEVER (0 POINTS) POINTS1 INTERPRETATIONNEGATIVE OCCUPATION: RETAIL. HOSPITALIZATION/MAJOR DIAGNOSTIC PROCEDURE CHILDBIRTH REVIEW OF SYSTEMS REVIEWED BY: PROVIDER: JENA AHUMADA MD . CONSTITUTIONAL: ANY CHANGE IN YOUR MEDICAL CONDITION? NO . CHILLS NO . FEVER NO . INFECTION: DO YOU HAVE NEW INFECTIONS? NO . DO YOU HAVE HISTORY OF MRSA? NO . MUSCULOSKELETAL: ANY NEW PATTERNS OF PAIN OR NUMBNESS? NO . SYTEMIC LUPUS NO . GASTROENTEROLOGY: ANY NEW CHANGE IN BOWEL CONTROL? NO . BARRETTS ESOPHAGUS NO . CIRRHOSIS NO . HEPATITIS NO . LIVER FAILURE NO . ACID REFLUX YES . UNEXPLAINED WEIGHT LOSS NO . GENITOURINARY: ANY NEW CHANGE IN BLADDER CONTROL? NO . IS THERE A CHANCE YOU COULD BE ? NO . HEMATOLOGY/LYMPH: DO YOU TAKE ANY BLOOD THINNERS? (FOR EXAMPLE- COUMADIN, PLAVIX, AGGRENOX, PLATEL, PRADAXA, OR XARELTO) NO . WHEN WAS YOUR LAST DOSE? DATE: TIME: . LOW PLATELET COUNT NO . SICKLE CELL DISEASE NO . VON WILLIEBRANDS NO . FACTOR V LEIDEN NO . THALLASEMIA NO . ANEMIA YES- CHILDHOOD . EASY BRUISING NO . NEUROLOGY: HAVE YOU FALLEN IN THE PAST 12 MONTHS? NO . ANY NEW EXTREMITY NUMBNESS OR WEAKNESS? NO . HEAD INJURY NO . DEMENTIA NO . CEREBRAL PALSY NO . MULTIPLE SCLEROSIS NO . DIZZINESS NO . HEADACHE ADMITS- MIGRAINES . STROKES NO . VERTIGO NO . CARDIOLOGY: DO YOU HAVE A PACEMAKER OR DEFIBRILLATOR? NO . ANGINA NO . HEART ATTACK NO . HEART SURGERY NO . CONGESTIVE HEART FAILURE/FLUID OVERLOAD NO . CHEST PAIN NO . HIGH BLOOD PRESSURE NO . IRREGULAR HEART BEAT NO . RESPIRATORY: HAVE YOU BEEN SICK IN THE PAST WEEK? NO . FEVER NO . FLU LIKE SYMPTOMS? NO . CPAP YES . BYPAP NO . ASTHMA NO . EMPHYSEMA NO . CHRONIC LUNG DISEASES NO . SHORTNESS OF BREATH ON EXERTION NO . COUGH NO . SNORING NO . INTEGUMENTARY: DO YOU HAVE ANY RASHES OR OPEN SORES? NO . ALLERGIC/IMMUNO: ARE YOU ALLERGIC TO IV DYE? NO . ANY NEW ALLERGIES? NO . PSYCHIATRIC: DO YOU HAVE THOUGHTS OF HURTING YOURSELF OR SOMEONE ELSE? NO . ARE YOU ABUSED, NEGLECTED, OR IN AN UNSAFE ENVIRONMENT? NO . ENDOCRINOLOGY: ARE YOU DIABETIC? NO . THYROID DISORDER NO . OTHER: DO YOU NEED ANY PRESCRIPTIONS? NO . IF YES, PLEASE LIST: ____ . ANY NEW PROBLEMS WITH YOUR MEDICATIONS? NO . WHEN DID YOU LAST EAT? ____ . WHEN DID YOU LAST DRINK? ____ . WHAT DID YOU LAST DRINK? ____ . NAME OF PERSON DRIVING YOU HOME? ____ . DO YOU HAVE ANY OTHER QUESTIONS OR CONCERNS NO . VITAL SIGNS WT 288.6 LBS, HT 64 IN, BMI 49.53 INDEX, BP 129/68 MM HG, HR 81 /MIN, RR 18 /MIN, TEMP 96.5 F, OXYGEN SAT % 100%, SAFE IN ENV? (Y/N) YES, NA INITIALS AW 1516, REVIEWED BY: RAMEZ. EXAMINATION GENERAL EXAMINATION: PATIENT IS ALERT O X 3 AND COOPERATIVE. LUNGS CLEAR, TO AUSCULTATION. HEART: NO MURMURS OR GALLOPS; FACIAL CRANIAL NERVES ARE GROSSLY NORMAL. GOOD SYMMETRY OF FACIAL MUSCLE MOVEMENT. NORMAL VISUAL WAN. TENDERNESS OVER THE PARASPINAL MUSCLE GROUP OF THE LOW BACK. PAIN INCREASES OVER THE LUMBAR FACET JOINTS WITH EXTENSION AND LATERAL ROTATION OF THE BACK. ANTALGIC WALK. NOTES FROM THE PATIENT'S REFERRING PHYSICIAN IS PRESENT IN THE PATIENT'S CHART. ASSESSMENTS LOW BACK PAIN - M54.5 (PRIMARY) OTHER CHRONIC PAIN - G89.29 R/O FACET ARTHROPATHY. TREATMENT LOW BACK PAIN CLINICAL NOTES: WE DISCUSSED SEVERAL ISSUES WITH MS. MG'S PAIN MANAGEMENT CASE. I DISCUSSED WITH THE PATIENT ABOUT THE OPTION OF PERFORMING DIAGNOSTIC FACET BLOCKS TO CONSIDER RADIOFREQUENCY IN THE FUTURE, AND IN ORDER TO MOVE FORWARD WITH THESE PROCEDURES I WOULD HAVE TO ORDER A LUMBAR SPINE MRI. THE PATIENT REPORTS HAVING TRIED INJECTION INTERVENTIONS IN THE PAST, AND IS INTERESTED IN MEDICATION MANAGEMENT FOR THE MOMENT. THEREFORE, I WILL REFER THE PATIENT TO [facility]'S PALLIATIVE CARE STAR PROGRAM TO CONSIDER MEDICATION MANAGEMENT. THE PATIENT WAS ADVISED TO CALL NEEDED TO BE SEEN FOR INJECTION THERAPY HERE, AND I WILL NEED TO ORDER A LUMBAR SPINE MRI FOR HER IN ORDER TO WORK WITH HER FACET JOINTS. INSTRUCTIONS WERE GIVEN, QUESTIONS WERE ANSWERED, PATIENT REPORTS UNDERSTANDING AND AGREES WITH THE PLAN. I, CLAIRE RDZ, DOCUMENTED THE ABOVE INFORMATION ACTING A SCRIBE FOR DR. AHUMADA. I HAVE REVIEWED THE ABOVE DOCUMENT, WRITTEN BY CLAIRE DEANIBCrason AND I VERIFY THAT IT IS ACCURATE. DEAR HEIDY OLIVIER MD: THANK YOU FOR YOUR KIND REFERRAL OF MARIOLA MG. IF YOU WANT TO DISCUSS HER CASE WITH ME PLEASE CALL ME AT THE PAIN CENTER AT [phone]. SINCERELY, JENA AHUMADA MD PAIN MEDICINE . PROCEDURE CODES FA211 ESTABILISHED PATIENT [facility] FACILITY CHARGE G8427 CURRENT MEDS W/DOSAGES DOCUMENTED G8730 PAIN ASSESS POS TOOL F/U PLAN DOC DISPOSITION & COMMUNICATION FOLLOW UP REASON: REFER TO PALLIATIVE CARE FOR MED MANAGE/CALL NEEDED ELECTRONICALLY SIGNED BY JENA AHUMADA MD, MD ON 07/06/2019 AT 02:31 PM EST DISCLAIMER : THIS IS A VISIT SUMMARY EXTRACTED FROM THE [facility] CHART. IT IS NOT A COPY OF THE [facility] PROGRESS NOTE. MTDD
== END ==
LOC: M PAIN 15:30
PROVIDERS: ATTEND Anesthesiology
DX: M54.5 Low back pain (principal); G89.29 Other chronic pain

== ENCOUNTER → 2019-08-09 | Outpatient (REF) | payer OTHER, MEDICAID | LOC: M SFHCLERA 11:30 | PROVIDERS: ATTEND Physician Assistant | DX: R10.31 Right lower quadrant pain (principal) ==

== ENCOUNTER 2020-04-11 15:56 | Emergency (ER) | payer OTHER, MEDICAID ==
[~2020-04-11] VITALS: Ht 162.6 cm; Wt 128.6 kg
[~2020-04-11 15:56] MED LIST changes: -LIDO1SOL8 MT; +LIDO2SOL17 MT; -TRAZ10TA GT; +TRAZ1TAB12 GT
[2020-04-11] MEDS ORDERED: OXYC1TAB23 PO (16:10)
[2020-04-11] MEDS ORDERED: SM S1TAB6 PO (16:11)
[2020-04-11] MEDS ORDERED: NAPR-837 PO (18:44)
[2020-04-11] MEDS ORDERED: ROBA750T4 PO (18:44)
[2020-04-11] MEDS ORDERED: LIDO3CRE14 TOP (18:44)
[2020-04-11] MEDS ORDERED: BIOF4GEL4 TOP (18:44)
[2020-04-11] MEDS ORDERED: diazePAM 10 MG TAB PO ONE (18:45)
[2020-04-11] MEDS ORDERED: LIDOCAINE 4% CREAM 5GM (LMX4) TOP ONE (18:45)
[2020-04-11] MEDS ORDERED: KETOROLAC 60MG 2ML VIAL IM ONE (18:45)
[2020-04-11] MEDS ORDERED: methocarbamoL 750 MG TAB PO ONE (18:45)
[2020-04-11 19:20] VITALS: BP 128/86
== END 2020-04-11 19:40 | disposition home or self-care (01) ==
LOC: M ED 15:56
DX: M54.2 Cervicalgia (principal); K21.9 Gastro-esophageal reflux disease without esophagitis; G47.30 Sleep apnea, unspecified; Z79.899 Other long term (current) drug therapy
CPT/HCPCS: 96372; 99283; J1885

== ENCOUNTER → 2020-09-07 | Outpatient (CLI) | payer OTHER, MEDICAID ==
[~2020-09-07] MED LIST changes: +BIOF4GEL4 TOP; +LIDO3CRE14 TOP; +OXYC1TAB23 PO; +ROBA750T4 PO; +SM S1TAB6 PO
== END ==
LOC: M LABSMTC 11:25
PROVIDERS: ATTEND Anesthesiology
DX: Z01.812 Encounter for preprocedural laboratory examination (principal); Z20.822 Contact with and (suspected) exposure to COVID-19

== ENCOUNTER 2020-09-12 08:37 | Day surgery (SDC) | payer OTHER ==
[~2020-09-12] VITALS: Ht 162.6 cm; Wt 135.1 kg
[~2020-09-12 08:37] MED LIST changes: +NS 1,000 ML IV ONE
--- OUTSIDE RECORDS SUMMARY | 2020-09-12 08:42 | CCD | Continuity of Care Document ---
Author Author Sintia RAMIREZ M.D. Organization Unknown Address [address] [place] [address] Phone [phone] Care Team Providers Care Supply Room Clerk Name Role Phone Marc Ramirez M.D. AUTM [phone] [facility] AUTM [phone] [facility] AUTM [phone] [facility] AUTM [phone] [facility] AUTM [phone] [facility] Outpatient Mental Health AUTM [phone] [facility] AUTM [phone] [facility] AUTM [phone] [facility] AUTM [phone] [facility] Gastroenterology AUTM [phone] Francesco Gandhi AUTM [phone] Problems Active Problems Provider Date Gastroesophageal reflux disease Marc Ramirez MD Onset: 0 10/22/2016 Migraine without aura, not refractory Marc Ramirez MD On set: 10/22/2016 Insomnia Marc Ramirez MD Onset: 10/22/2016 Vitamin D deficiency Marc Ramirez MD Onset: 10/22/2016 Dystrophia unguium Marc Ramirez MD Onset: 01/17/2017 Abnormal menstrual cycle Marc Ramirez MD Onset: 01/18/20 17 Acquired renal cystic disease Marc Ramirez MD Onset: 07/2017 Recurrent major depressive episodes Marc Ramirez MD Onse t: 04/23/2017 Reduction mammoplasty, bilateral Megha Jaya'KATIA ghosh Onset: 10/31/2017 Note: 08/29 [place] Social History Type Date Description Comments Sex Unknown Tobacco Use Start: Unknown Never Smoked Cigarettes Tobacco Use Start: Unknown Never Smoked Cigars Tobacco Use Start: Unknown Never Smoked A Pipe Tobacco Use Start: Unknown Never Used Smokeless Tobacco ETOH Use Occasionally consumes alcohol Recreational Drug Use Denies Drug Use Tobacco Use Start: Unknown End: Patient is a former smoker quit 2019 in Sep Allergies, Adverse Reactions, Alerts Active Allergies Reaction Severity Comments Date NKFA 10/22/2016 NKEA 10/22/2016 Clean And Clear Sensitive Skin Urticaria due to str ess breaks out 01/09/2018 Dermorphism Urticaria itch/ hives due to stress an xiety 01/09/2018 Inactive Allergies NKDA 10/22/2016 Seasonal stress bring on rash.hives 0 01/09/2018 Medications Active Medications SIG Qnty Indications Ordering Provide r Date Metrogel-Vaginal 0.75% Gel 1 applicator at bedtime x 10 days or twice a day for 5 days 70gm Xavier on Waldemar Foley M.D. 06/20/2020 Eq Senna-S 8.6-50mg Tablets take 1 tablet by mouth once daily 90tabs K59.00 Marc Ramirez MD 02/16/20 20 Vitamin D (Ergocalciferol) 1.25mg (28128 Ut) Capsules take 1 capsule by mouth once a month 3caps E55.9 Rajat Ramirez MD 11/12/2019 Sumatriptan Succinate 6mg/0.5ML Solution Auto-Inject inject 0.5ml sc as needed migraine, may repeat 1 dose after 1 hour. migraines per month - 4+ (Neurologist) Unkn own Prevacid 30mg Capsules DR take one tablet by mouth once daily as needed Unknown Oxycodone-Acetaminophen 5-325mg Ta blets Take 1 Tablet By Mouth Three Times Daily as Needed For Pain . DO Not Exceed 3 Per24 Hours Unknown Levocetirizine Dihydrochloride 5mg Tablets Take 1 Tablet By Mouth Once Daily In The Evening Unknown Immunizations Description No Information Available Vital Signs Date Vital Result Comment 08/24/2020 1:01pm BP Systolic 118 mmHg BP Diastolic 64 mmHg Heart Rate 100 /min Body Temperature 97.1 F Respiratory Rate 18 /min O2 % BldC Oximetry 95 % Weight 300.25 lb Weight 136.193 kg Height 64 inches 5'4" BMI (Body Mass Index) 51.5 kg/m2 BSA (Body Surface Area) 2.33 m2 08/19/2020 10:23am Heart Rate 88 /min Body Temperature 98.8 F O2 % BldC Oximetry 98 % Results Test Acquired Date Facility Test Result H/L Range Note Laboratory test finding 06/15/2020 [facility] Syphilis NON-REACTIVE Normal:Non Reactive 1 Hep C Antibody With Reflex Quant PCR <0.1 s/coratio 0. 0-0.9 HIV Panel 06/15/2020 [facility] HIV Screen 4thGeneration wRfx Non Reactive Non Reacti ve Herpes Simplex AB Type2 06/15/2020 [facility] HSV 2 IgG, Type Spec <0.91 index 0.00-0.90 2 Affirm Vaginitis Panel 06/15/2020 [facility] Z#Other Observations <pending> Bacterial Vaginosis 06/15/2020 [facility] Source: Genital 3 Margaret species Negative Negative Gardnerella vaginalis Positive Abnormal Negative Trichomonas vaginalis Negative Negative Chlamydia GC/Trich 06/15/2020 [facility] Source: Genital Chlamydia by Monserrat Negative Negative Gonococcus by Monserrat Negative Negative Trich vag by Monserrat Negative Negative 1 .~.~<DG1.3.1>Z11.3</DG1.3.1><DG1.3.1>Z11.3</DG1.3.1><DG1.3.1>Z11.3</DG1.3.1><DG1 .3.1 2 Negative <0.91 Equivocal 0.91 - 1.09 Positive >1.09 Note: Negative indicates no antibodies detected to HSV-2. Equivocal may suggest early infection. If clinically appropriate, retest at later date. Positive indicates antibodies detected to HSV-2. 3 {SOURCE: Genital Procedures Description No Information Available Medical Devices Description No Information Available Encounters Description No Information Available Assessments Date Code Description Provider 07/13/2020 Z71.7 Human immunodeficiency virus [HI V] counseling Megha O'davina, PSYCHIATRIC ATTENDANT 06/15/2020 Z11.3 Encounter for screen ing for infections with a predominantly sexual mode of transmission Megha Espino NP 06/15/2020 Z11.4 Encounter for screening for shayan n immunodeficiency virus [HIV] Megha Espino NP 03/17/2020 R07.9 Chest pain, unspecified Marc Ramirez MD 03/17/2020 G47.33 Obstructive sleep apnea (adult) (pediatric) Marc Ramirez MD 03/17/2020 I36.1 Nonrheumatic tricuspid (valve) i nsufficiency Marc Ramirez MD 03/17/2020 E66.9 Obesity, unspecified Marc parekh MD 02/25/2020 Z71.7 Human immunodeficiency virus [HI V] counseling Megha Espino NP Plan of Treatment No Information Available Functional Status Description No Information Available Mental Status Description No Information Available Referrals Refer to Reason for Referral Status Appt Date Francesco Gandhi 44 y/o F with hx of obesity, referred for weight loss surgery. Pls eval and treat. Sent [address] [place] [address] [phone] [facility] 44 y/o F with hx of chest pain, tricuspid insufficiency, cardiac murmur, and pulmonary hypertension, referred for full cardiac evaluation with stress test. Closed 03/21/2020 [id number] [place], [place] [id number] [phone]
--- OUTSIDE RECORDS SUMMARY | 2020-09-12 08:42 | CCD | Continuity of Care Document ---
Author Author Sintia BOONE P.A.-C. Organization Unknown Address [address] [place] [address] Phone [phone] Care Team Providers Care Spring Former Name Role Phone Marc Ramirez M.D. AUTM [phone] Problems Active Problems Provider Date Tension-type headache Remedios Dillon M.D. Onset: 09/17/2014 Migraine without aura Remedios Dillon M.D. Onset: 09/17/2014 Obstructive sleep apnea syndrome Remedios Dillon M.D. Onset: 09/17/2014 Chronic back pain Remedios Dillon M.D. Onset: 09/17/2014 Neck pain Remedios Dillon M.D. Onset: 09/17/2014 Hypersomnia Remedios Dillon M.D. Onset: 09/17/2014 Chronic tension-type headache Remedios Dillon M.D. Onset: 12/2015 Insomnia disorder related to known organic factor Remedios Dillon M.D. Onset: 08/16/2015 Social History Type Date Description Comments Sex Unknown ETOH Use Negative For Occasionally consum es alcohol Tobacco Use Start: Unknown Light tobacco smoker (10 or fewe r cigarettes/day) Recreational Drug Use Never Used Drugs Allergies, Adverse Reactions, Alerts Description No Known Drug Allergies Medications Active Medications SIG Qnty Indications Ordering Provide r Date Cpap daniela, g47.33, current machine has rust and foul odor 1u nits G47.33 Roma Ngo M.D. 06/24/2019 Cpap Mask And Supplies daniela, g47.33 1Set Remedios Dillon M.D. 12/17/2016 Sumatriptan Succinate 100mg Tablet s half or 1 tab by mouth onset of headache, may repeat once after 2 hrs. ( for 5 migraines per month) 9tabs Remedios Dillon M.D. 09/17/2014 Immunizations Description No Information Available Vital Signs Date Vital Result Comment 04/04/2020 4:34am BP Systolic 110 mmHg BP Diastolic 80 mmHg Heart Rate 80 /min Respiratory Rate 16 /min 06/24/2019 7:04am BP Systolic 110 mmHg BP Diastolic 80 mmHg Heart Rate 80 /min Respiratory Rate 16 /min Results Description No Information Available Procedures Description No Information Available Medical Devices Description No Information Available Encounters Type Date Location Provider Dx Diagnosis Office Visit 07/05/2020 11:15a Main office - [place] Mara torres, P.A.-C. G43.019 Migraine w/o aura, intractable, without status migrainosus G47.33 Obstructive sleep apnea (darell lt) (pediatric) Office Visit 04/04/2020 2:30p Main office - [place] Mara torres P.A.-C. G43.019 Migraine w/o aura, intractable, without status migrainosus G47.33 Obstructive sleep apnea (darell lt) (pediatric) Assessments Date Code Description Provider 07/05/2020 G43.019 Migraine without aura, intractab le, without status migrainos Mara Boone, P.A.-C. 07/05/2020 G47.33 Obstructive sleep apnea (adult) (pediatric) Mara Boone P.A.-C. 04/04/2020 G43.019 Migraine without aura, intractab le, without status migrainos Mara Boone P.A.-C. 04/04/2020 G47.33 Obstructive sleep apnea (adult) (pediatric) Mara Boone P.A.-C. Plan of Treatment 07/05/2020 - Mara Boone P.A.-C.* G43.019 Migraine without aura, intractable, without status migrainos* Comments:* Continue Imitrex as needed. * G47.33 Obstructive sleep apnea (adult) (pediatric)* Comments:* Continue CPAP. She is compliant and finds it beneficial. * Follow up:* 3 months Functional Status Description No Information Available Mental Status Description No Information Available Referrals Description No Information Available
--- OUTSIDE RECORDS SUMMARY | 2020-09-12 08:42 | CCD | Continuity of Care Document ---
Author Author Sintia HOOVER Organization Unknown Address [address] [place] [address] Phone [phone] Care Team Providers Care Coat Hanger Shaper Machine Operator Name Role Phone Marc Ramirez M.D. AUTM [phone] [facility] AUTM [facility] AUTM [facility] AUTM [phone] [facility] Audiology & Physical Therapy AUTM [phone] [facility] Outpatient Mental Health AUTM [phone] [facility] Orthopedics AUTM [phone] [facility] AUTM [phone] [facility] AUTM [phone] [facility] Gastroenterology AUTM [phone] Francesco Gandhi AUTM [phone] Problems Active Problems Provider Date Gastroesophageal reflux [...] Onse t: 04/23/2017 Reduction mammoplasty, bilateral Megha O'KATIA ghosh Onset: 10/31/2017 Note: 08/29 [place] [facility] [...] Foley M.D. 06/20/2020 Eq Senna-S 8.6-50mg Tablets Take 1 tablet by mouth once daily 90tabs K59.00 Marc Ramirez MD 02/16/20 20 Vitamin D (Ergocalciferol) 1.25mg (51638 Ut) Capsules Take 1 Capsule By Mouth Once A Month 3caps E55.9 Rajat Ramirez MD 11/12/2019 Xyzal Allergy 24HR 5mg Tablets 1 by mouth every day- Allergy clinic Unknown Sumatriptan Succinate 6mg/0.5ML Solution Auto-Inject inject 0.5ml [...] DO Not Exceed 3 Per24 Hours Unknown Naproxen 500mg Tablets Unknown Levocetirizine Dihydrochloride 5mg Tablets Take 1 Tablet By Mouth Once Daily In The Evening Unknown Immunizations Description No Information Available Vital Signs Date Vital Result Comment 07/13/2020 1:40pm BP Systolic 125 mmHg BP Diastolic 89 mmHg Heart Rate 88 /min Body Temperature 96.2 F Weight 298.00 lb Weight 135.173 kg Height 64 inches 5'4" BMI (Body Mass Index) 51.1 kg/m2 BSA (Body Surface Area) 2.32 m2 06/15/2020 3:10pm BP Systolic 130 mmHg BP Diastolic 80 mmHg Heart Rate 82 /min Body Temperature 97.8 F Weight 294.00 lb Weight 133.358 kg Height 64 inches 5'4" BMI (Body Mass Index) 50.5 kg/m2 BSA (Body Surface Area) 2.30 m2 Results Test Acquired Date Facility Test Result H/L Range Note Laboratory test finding 06/15/2020 [facility] Syphilis NON-REACTIVE Normal:Non Reactive 1 Hep C Antibody With Reflex Quant PCR <0.1 s/coratio 0. 0-0.9 HIV Panel 06/15/2020 [facility] HIV Screen 4thGeneration wRfx Non Reactive Non Reacti ve Herpes Simplex AB Type2 06/15/2020 [facility] HSV 2 IgG, Type Spec <0.91 index 0.00-0.90 2 Affirm Vaginitis Panel 06/15/2020 [facility]#Other Observations <pending> Bacterial Vaginosis 06/15/2020 [facility] Source: Genital 3 Margaret species Negative Negative Gardnerella vaginalis Positive Abnormal Negative Trichomonas vaginalis Negative Negative Chlamydia GC/Trich 06/15/2020 [facility] Source: Genital Chlamydia by Monserrat Negative Negative Gonococcus by Monserrat Negative Negative Trich vag by Monserrat Negative Negative Laboratory test finding 01/21/2020 [facility] Syphilis NON-REACTIVE Normal:Non Reactive 4 Hep C Antibody With Reflex Quant PCR <0.1 s/coratio 0. 0-0.9 Herpes Simplex Virus I/II Igg 01/21/2020 [facility] HSV 1 IgG, Type Spec 56.50 index High 0.00-0.90 5 HSV 2 IgG, Type Spec <0.91 index 0.00-0.90 6 Herpes I&II Igm AB 01/21/2020 [facility] HSV, IgM I/II Combination <0.91 Ratio 0.00-0.90 7 HIV Panel 01/21/2020 [facility] HIV Screen 4thGeneration wRfx Non Reactive Non Reacti ve Chlamydia GC/Am 01/20/2020 [facility] Source: Genital 8 Chlamydia trachomatis,Monserrat Negative Negative Neisseria gonorrhoeae,Monserrat Negative Negative CBC W/Automated Diff 01/20/2020 [facility] CBC W/Automated Diff (SEE NOTE) 9, 10 WBC 8.2 10^3/uL 4.2 - 11.0 RBC 4.44 10^6/uL 4.20 - 5.40 Hemoglobin 12.6 g/dL 12.0 - 16.0 Hematocrit 39.8 % 37.0 - 47.0 MCV 89.6 fL 81.0 - 101 MCH 28.4 pg 27.0 - 34.0 MCHC 31.7 g/dL 31.0 - 36.0 RDW 13.2 % 11.5 - 14.5 Platelets 276 10^3/uL 150 - 450 MPV 12.5 fL High 7.4 - 10.4 Neut 69.4 % 37.0 - 80.0 Lymph 22.6 % Low 25.0 - 40.0 Cherokee 6.4 % 3.0 - 8.0 Eos 0.9 % 0.0 - 7.0 Baso 0.5 % 0.0 - 2.5 %Ig 0.2 % High 0.0 - 0.0 %NRBC 0.0 % 0.0 - 0.0 #Neut 5.66 10^3/uL 2.00 - 6.90 #Lymph 1.84 10^3/uL 0.60 - 3.40 #Cherokee 0.52 10^3/uL 0.00 - 0.90 #Eos 0.07 10^3/uL 0.00 - 0.70 #Baso 0.04 10^3/uL 0.00 - 0.20 #Ig 0.02 10^3/uL 0.00 - 0.10 #NRBC 0.00 10^3/uL 0.00 - 0.00 Manual Diff NOT INDICATED RBC Morph NOT INDICATED Laboratory test finding 01/20/2020 [facility] l Vitamin D (25-Hydroxy) 31 NG/ML 11 Vitamin B12 Serum 413 pg/mL 232 - 1245 T4 - Free 1.02 ng/dL 0.93 - 1.70 Cve Panel 01/20/2020 [facility] Cve Panel (SEE NOTE) 12 Cholesterol 181 mg/dL 131 - 200 Triglycerides 53 mg/dL 35 - 160 HDL 59 mg/dL 29 - 86 LDL 111 mg/dL 65 - 175 Risk Factor 3.1 Low 3.2 - 4.4 LDL/HDL 1.88 1.47 - 3.22 13 Hemoglobin A1c 01/20/2020 [facility] HGB A1c 5.0 % 4.4 - 6.1 14 Laboratory test finding 01/20/2020 [facility] l TSH Highly Sensitive 0.90 uIU/mL 0.47 - 5.01 Folic Acid Serum(Folate) 16.3 NG/ML 4.4 - 31.0 Order 01/20/2020 In Office Inhouse [facility] [place] + clue,whiff 1 .~.~<DG1.3.1>Z11.3</DG1.3.1><DG1.3.1>Z11.3</DG1.3.1><DG1.3.1>Z11.3</DG1.3.1><DG1 .3.1 2 Negative <0.91 Equivocal 0.91 - 1.09 Positive >1.09 Note: Negative indicates no antibodies detected to HSV-2. Equivocal may suggest early infection. If clinically appropriate, retest at later date. Positive indicates antibodies detected to HSV-2. 3 {SOURCE: Genital 4 .~.~<DG1.3.1>Z11.3</DG1.3.1><DG1.3.1>Z11.3</DG1.3.1><DG1.3.1>Z11.3</DG1.3.1><DG1 .3.1 5 Negative <0.91 Equivocal 0.91 - 1.09 Positive >1.09 Note: Negative indicates no antibodies detected to HSV-1. Equivocal may suggest early infection. If clinically appropriate, retest at later date. Positive indicates antibodies detected to HSV-1. 6 Negative <0.91 Equivocal 0.91 - 1.09 Positive >1.09 Note: Negative indicates no antibodies detected to HSV-2. Equivocal may suggest early infection. If clinically appropriate, retest at later date. Positive indicates antibodies detected to HSV-2. 7 Negative <0.91 Equivocal 0.91 - 1.09 Positive >1.09 8 {SOURCE: Genital~VAGINAL 9 Is patient fasting? N 10 COMPLETE BLOOD COUNT 11 VITAMIN-D(25HYDROXY) Deficiency: <=20 ng/ml Insufficiency: 21-29 ng/ml Preferred level: => 30 ng/ml 12 LIPID PANEL 13 CVE RISK CHOL/HDL LDL/HDL MEN: 1/2 AVERAGE 3.43 1.00 AVERAGE 4.97 3.55 2X AVERAGE 9.55 6.25 3X AVERAGE 23.99 7.99 WOMEN: 1/2 AVERAGE 3.27 1.47 AVERAGE 4.44 3.22 2X AVERAGE 7.05 5.03 3X AVERAGE 11.04 6.14 14 {A1] {HB] Procedures Date Code Description Status 01/19/2020 90425 Brief Emotional/Beha v Assessment W/ Scoring Doc Per Standard Inst Completed Medical Devices Description No Information Available Encounters Type Date Location Provider Dx Diagnosis Office Visit 07/13/2020 1:[facility]p [facility] Megha Espino NP Z71.7 Human immunodeficiency virus [HIV] counseling Assessments Date Code Description Provider 07/13/2020 Z71.7 Human immunodeficiency virus [HI V] counseling Megha Espino NP 06/15/2020 Z11.3 Encounter for screen ing for [...] virus [HI V] counseling Megha Espino NP 02/18/2020 K21.9 Gastro-esophageal reflux disease without esophagitis Marc Ramirez MD 02/18/2020 E55.9 Vitamin D deficiency, unspecifie d Marc Ramirez MD 02/18/2020 G47.33 Obstructive sleep apnea (adult) (pediatric) Marc Ramirez MD 02/18/2020 K59.00 Constipation, unspecified Marc Ramirez MD 01/21/2020 Z11.3 Encounter for screen ing for infections with a predominantly sexual mode of transmission Megha Espino NP 01/20/2020 Z01.411 Encounter for gyneco logical examination (general) (routine) with abnormal findings Megha Espino NP 01/20/2020 N76.0 Acute vaginitis Megha Espino NP 01/20/2020 Z11.3 Encounter for screen ing for infections with a predominantly sexual mode of transmission Megha Espino NP 01/20/2020 Z11.4 Encounter for screening for shayan n immunodeficiency virus [HIV] Megha Espino NP 01/20/2020 K21.9 Gastro-esophageal reflux disease without esophagitis Marc Ramirez MD 01/20/2020 E55.9 Vitamin D deficiency, unspecifie d Marc Ramirez MD 01/20/2020 G47.33 Obstructive sleep apnea (adult) (pediatric) Marc Ramirez MD 01/20/2020 E66.9 Obesity, unspecified Marc I. P MD izabella 01/19/2020 G47.33 Obstructive sleep apnea (adult) (pediatric) Marc Ramirez MD 01/19/2020 E55.9 Vitamin D deficiency, unspecifie d Marc Ramirez MD 01/19/2020 K21.9 Gastro-esophageal reflux disease without esophagitis Marc Ramirez MD 01/19/2020 E66.9 Obesity, unspecified Marc I. P MD izabella 01/19/2020 R01.1 Cardiac murmur, pakoified Rajat Ramirez MD 01/19/2020 K59.00 Constipation, pakoified Marc Ramirez MD Plan of Treatment Future Appointment(s):* 08/23/2020 10:00 am - Marc Ramirez MD at [facility] 07/13/2020 - Megha Espino NP* Z71.7 Human immunodeficiency virus [HIV] counseling* Follow up:* As needed. * Recommendations:* discussed results neg, would like copy results. Reviewed protection and prevention with condom use Functional Status Description No Information Available Mental Status Description No Information Available Referrals Refer to Reason for Referral Status Appt Date Francesco Gandhi 44 y/o F with hx of obesity, referred for weight loss surgery. Pls eval and treat. Sent [address] [place] [address] [phone] [facility] 44 [facility] F with hx of chest pain, tricuspid insufficiency, cardiac murmur, and pulmonary hypertension, referred for full cardiac evaluation with stress test. Closed 03/21/2020 [address] [facility] [address] [phone] [facility] Gastroenterology 4 y/o F with hx of abdominal pain and constipation, family hx of colon cancer in an uncle and grandmother, pls eval and treat. Patient Notified 03/09/2020 [address] [place], [place] [id number] [phone] [facility] 44 y/[facility] F with hx of cardi ac murmur, pls eval and treat. Closed 02/03/2020 [address] [place] [address] [phone]
--- OUTSIDE RECORDS SUMMARY | 2020-09-12 08:42 | CCD | Continuity of Care Document ---
Author Author Sintia POPE GALLERY DIRECTOR Organization Unknown Address [address] [place] [address] Phone [phone] Care Team Providers Care Ordinary Seaman Name Role Phone Marc Ramirez M.D. AUTM [phone] [facility] AUTM [facility] AUTM [facility] AUTM [phone] [facility] Audiology & Physical Therapy AUTM [phone] [facility] Outpatient Mental Health AUTM [facility] Orthopedics AUTM [phone] [facility] AUTM [phone] [facility] AUTM [facility] Gastroenterology AUTM [phone] Francesco Gandhi AUTM [phone] Problems Active Problems Provider Date Gastroesophageal reflux [...] MD 02/16/20 20 Vitamin D (Ergocalciferol) 1.25mg (72953 Ut) Capsules Take 1 Capsule By Mouth [...] Result H/L Range Note Laboratory test finding 08/19/2020 [facility] Covid-19 <pending> Laboratory test finding 06/15/2020 [facility] Syphilis NON-REACTIVE Normal:Non Reactive 1 Hep C Antibody With Reflex Quant PCR <0.1 s/coratio 0. 0-0.9 HIV Panel 06/15/2020 [facility] HIV Screen 4thGeneration wRfx Non Reactive Non Reacti ve Herpes Simplex AB Type2 06/15/2020 [facility] HSV 2 IgG, Type Spec <0.91 index 0.00-0.90 2 Affirm Vaginitis Panel 06/15/2020 [facility]#Other Observations <pending> Bacterial Vaginosis 06/15/2020 [facility] Source: Genital 3 Margaret species Negative Negative Gardnerella vaginalis Positive Abnormal Negative Trichomonas vaginalis Negative Negative Chlamydia GC/Trich 06/15/2020 [facility] Source: Genital Chlamydia by Monserrat Negative [...] Marc Ramirez MD 02/18/2020 K59.00 Constipation, unspecified Macr Ramirez MD Plan of Treatment Future Appointment(s):* 08/23/2020 10:00 am - [facility] at [facility] 07/13/2020 - Megha Espino NP* Z71.7 Human [...] surgery. Pls eval and treat. Sent [address] [place] [address] [phone] [facility] 44 y/[facility] F with hx of chest pain, tricuspid insufficiency, cardiac murmur, and pulmonary hypertension, referred for full cardiac evaluation with stress test. Closed 03/21/2020 [address] [facility] [address] [place], [place] [id number] [phone]
--- OUTSIDE RECORDS SUMMARY | 2020-09-12 08:42 | CCD | Continuity of Care Document ---
Author Author Sintia POPE WORK FROM HOME Organization Unknown Address [address] [place] [address] Phone [phone] Care Team Providers Care Docket Clerk Name Role Phone Marc Ramirez M.D. AUTM [phone] [facility] AUTM [facility] AUTM [phone] [facility] AUTM [phone] [facility] Audiology & Physical Therapy AUTM [phone] [facility] Outpatient Mental Health AUTM [facility] Orthopedics AUTM [phone] [facility] AUTM [phone] [facility] AUTM [facility] Gastroenterology AUTM [phone] Francesco Gandhi AUTM [phone] Problems Active Problems Provider Date Gastroesophageal reflux [...] MD 02/16/20 20 Vitamin D (Ergocalciferol) 1.25mg (39752 Ut) Capsules Take 1 Capsule By Mouth Once A Month 3caps E55.9 Rajat Ramirez MD 11/12/2019 Sumatriptan [...] H/L Range Note Laboratory test finding 06/15/2020 [facility] Syphilis NON-REACTIVE Normal:Non Reactive 1 Hep C Antibody With Reflex Quant PCR <0.1 s/coratio 0. 0-0.9 HIV Panel 06/15/2020 [facility] HIV Screen 4thGeneration wRfx Non Reactive Non Reacti ve Herpes Simplex AB Type2 06/15/2020 [facility] HSV 2 IgG, Type Spec <0.91 index 0.00-0.90 2 Affirm Vaginitis Panel 06/15/2020 [facility]Other Observations <pending> Bacterial Vaginosis 06/15/2020 [facility] Source: Genital 3 Margaret species Negative Negative Gardnerella vaginalis Positive Abnormal Negative Trichomonas vaginalis Negative Negative Chlamydia GC/Trich 06/15/2020 [facility] Source: Genital Chlamydia by Monserrat Negative Negative [...] Description No Information Available Referrals Refer to Dr Reason for Referral Status Appt Date Francesco Gandhi 44 y/o F with hx of obesity, referred for weight loss surgery. Pls eval and treat. Sent [address] [place] [address] [phone] [facility] 44 y/[facility] F with hx of chest pain, tricuspid insufficiency, cardiac murmur, and pulmonary hypertension, referred for full cardiac evaluation with stress test. Closed 03/21/2020 [address] [place], [place] [id number] [phone]
--- OUTSIDE RECORDS SUMMARY | 2020-09-12 08:43 | CCD | Continuity of Care Document ---
Author Author Sintia HOOVER Organization Unknown Address [address] [place] [address] Phone [phone] Care Team Providers Care Elementary School Teacher'S Aide Name Role Phone Marc Ramirez M.D. AUTM [phone] [facility] AUTM [facility] AUTM [phone] [facility] AUTM [phone] [facility] AUTM [phone] [facility] Outpatient Mental Health AUTM [facility] Orth[facility] AUTM [phone] [facility] AUTM [phone] [facility] AUTM [facility] Gastroenterology AUTM [phone] Francesco Gandhi AUTM [phone] Problems Active Problems Provider Date Gastroesophageal reflux [...] Onse t: 04/23/2017 Reduction mammoplasty, bilateral Megha O'davina, KATIA Onset: 10/31/2017 Note: 08/29 [place] Social History [...] SIG Qnty Indications Ordering Provide r Date Senna-S 8.6-50mg Tablets 1 cap by mouth once a day 90tabs K59.00 Marc Ramirez MD 02/16/2020 Vitamin D (Ergocalciferol) 1.25mg (08294 Ut) Capsules Take 1 Capsule By Mouth [...] Available Vital Signs Date Vital Result Comment 06/15/2020 3:10pm BP Systolic 130 mmHg BP Diastolic 80 mmHg Heart Rate 82 /min Body Temperature 97.8 F Weight 294.00 lb Weight 133.358 kg Height 64 inches 5'4" BMI (Body Mass Index) 50.5 kg/m2 BSA (Body Surface Area) 2.30 m2 03/17/2020 3:01pm BP Systolic 116 mmHg BP Diastolic 70 mmHg Heart Rate 79 /min Body Temperature 97.6 F Respiratory Rate 18 /min O2 % BldC Oximetry 96 % Weight 283.00 lb Weight 128.369 kg Height 64 inches 5'4" BMI (Body Mass Index) 48.6 kg/m2 BSA (Body Surface Area) 2.27 m2 Results Test Acquired Date Facility Test Result H/L Range Note Affirm Vaginitis Panel 06/15/2020 [facility]Other Observations <pending> HIV Panel 01/21/2020 [facility] [place] [facility] HIV Screen 4thGeneration wRfx Non Reactive Non Reacti ve 1 Herpes I&II Igm AB 01/21/2020 [facility] [place] HSV, IgM I/II Combination <0.91 Ratio 0.00-0.90 2 Herpes Simplex Virus I/II Igg 01/21/2020 [facility] HSV 1 IgG, Type Spec 56.50 index High 0.00-0.90 3 HSV 2 IgG, Type Spec <0.91 index 0.00-0.90 4 Laboratory test finding 01/21/2020 [facility] Syphilis NON-REACTIVE Normal:Non Reactive Hep C Antibody With Reflex Quant PCR <0.1 s/coratio 0. 0-0.9 Order 01/20/2020 In Office Inhouse Wet [place] + clue,whiff Laboratory test finding 01/20/2020 [facility] TSH Highly Sensitive 0.90 uIU/mL 0.47 - 5.01 5 Folic Acid Serum(Folate) 16.3 NG/ML 4.4 - 31.0 Hemoglobin A1c 01/20/2020 [facility] [place] HGB A1c 5.0 % 4.4 - 6.1 6 Cve Panel 01/20/2020 [facility] Cve Panel (SEE NOTE) 7 Cholesterol 181 mg/dL 131 - 200 Triglycerides 53 mg/dL 35 - 160 HDL 59 mg/dL 29 - 86 LDL 111 mg/dL 65 - 175 Risk Factor 3.1 Low 3.2 - 4.4 LDL/HDL 1.88 1.47 - 3.22 8 Laboratory test finding 01/20/2020 [facility] l Vitamin D (25-Hydroxy) 31 NG/ML 9 Vitamin B12 Serum 413 pg/mL 232 - 1245 T4 - Free 1.02 ng/dL 0.93 - 1.70 CBC W/Automated Diff 01/20/2020 [facility] CBC W/Automated Diff (SEE NOTE) 10 WBC 8.2 10^3/uL 4.2 - 11.0 [...] Lymph 22.6 % Low 25.0 - 40.0 [place] 6.4 % 3.0 - 8.0 Eos 0.9 % 0.0 - 7.0 Baso 0.5 % 0.0 - 2.5 %Ig 0.2 % High 0.0 - 0.0 %NRBC 0.0 % 0.0 - 0.0 #Neut 5.66 10^3/uL 2.00 - 6.90 #Lymph 1.84 10^3/uL 0.60 - 3.40 #[place] 0.52 10^3/uL 0.00 - 0.90 #Eos 0.07 10^3/uL 0.00 - 0.70 #Baso 0.04 10^3/uL 0.00 - 0.20 #Ig 0.02 10^3/uL 0.00 - 0.10 #NRBC 0.00 10^3/uL 0.00 - 0.00 Manual Diff NOT INDICATED RBC Morph NOT INDICATED Chlamydia GC/Am 01/20/2020 [facility] Source: Genital 11 Chlamydia trachomatis,Monserrat Negative Negative Neisseria gonorrhoeae,Monserrat Negative Negative 1 .~.~<DG1.3.1>Z11.3</DG1.3.1><DG1.3.1>Z11.3</DG1.3.1><DG1.3.1>Z11.3</DG1.3.1><DG1 .3.1 2 Negative <0.91 Equivocal 0.91 - 1.09 Positive >1.09 3 Negative <0.91 Equivocal 0.91 - 1.09 Positive >1.09 Note: Negative indicates no antibodies detected to HSV-1. Equivocal may suggest early infection. If clinically appropriate, retest at later date. Positive indicates antibodies detected to HSV-1. 4 Negative <0.91 Equivocal 0.91 - 1.09 Positive >1.09 Note: Negative indicates no antibodies detected to HSV-2. Equivocal may suggest early infection. If clinically appropriate, retest at later date. Positive indicates antibodies detected to HSV-2. 5 Is patient fasting? N 6 {A1] {HB] 7 LIPID PANEL 8 CVE RISK CHOL/HDL LDL/HDL MEN: 1/2 AVERAGE 3.43 1.00 AVERAGE 4.97 3.55 2X AVERAGE 9.55 6.25 3X AVERAGE 23.99 7.99 WOMEN: 1/2 AVERAGE 3.27 1.47 AVERAGE 4.44 3.22 2X AVERAGE 7.05 5.03 3X AVERAGE 11.04 6.14 9 VITAMIN-D(25HYDROXY) Deficiency: <=20 ng/ml Insufficiency: 21-29 ng/ml Preferred level: => 30 ng/ml 10 COMPLETE BLOOD COUNT 11 {SOURCE: Genital~VAGINAL Procedures Date Code Description Status 01/19/2020 88575 Brief Emotional/Beha v Assessment W/ Scoring Doc Per Standard Inst Completed Medical Devices Description No Information Available Encounters Type Date Location Provider Dx Diagnosis Office Visit 06/15/2020 3:15p [facility] Megha Espino NP Z11.3 Encntr screen for infections w sexl mode of transmiss Z11.4 Encounter for screening for human immunodeficiency virus Assessments Date Code Description Provider 06/15/2020 Z11.3 Encounter for screen ing for [...] (pediatric) Marc Ramirez MD 02/18/2020 K59.00 Constipation, pakoified Marc Ramirez MD 01/21/2020 Z11.3 Encounter for [...] Ramirez MD 01/20/2020 E66.9 Obesity, unspecified Marc parekh MD 01/19/2020 G47.33 Obstructive sleep apnea (adult) (pediatric) Marc Ramirez MD 01/19/2020 E55.9 Vitamin D deficiency, unspecifie d Marc Ramirez MD 01/19/2020 K21.9 Gastro-esophageal reflux disease without esophagitis Marc Ramirez MD 01/19/2020 E66.9 Obesity, unspecified Marc parekh MD 01/19/2020 R01.1 Cardiac murmur, unspecified Rajat Ramirez MD 01/19/2020 K59.00 Constipation, unspecified Marc Ramirez MD Plan of Treatment Future Appointment(s):* 07/13/2020 1:30 pm - Megha Espino NP at [facility] * 08/23/2020 10:00 am - Marc Ramirez MD at [facility] 06/15/2020 - Megha Espino NP* Z11.3 Encounter for screening for infections with a predominantly sexual mode of transmission* Recommendations:* I will notify results if needs meds. * Z11.4 Encounter for screening for human immunodeficiency virus [HIV]* Follow up:* 3 wk for results * Recommendations:* reviewed transmission, protection and use condoms Functional Status Description No Information Available Mental Status Description No Information Available Referrals Refer to Reason for Referral Status Appt Date Francesco Gandhi 44 y/o F with hx of obesity, referred for weight loss surgery. Pls eval and treat. Sent [address] [place] [address] [phone] [facility] 44 y/o F with hx of chest pain, tricuspid insufficiency, cardiac murmur, and pulmonary hypertension, referred for full cardiac evaluation with stress test. Closed 03/21/2020 [address] [place], [place] [id number] [phone] [facility] Gastroenterology 4 y/o F with hx of abdominal pain and constipation, family hx of colon cancer in an uncle and grandmother, pls eval and treat. Patient Notified 03/09/2020 [address] [place], [place] [id number] [phone] [facility] 44 y/o F with hx of cardi ac murmur, pls eval and treat. Closed 02/03/2020 [address] [place], [place] [id number] [phone]
--- OUTSIDE RECORDS SUMMARY | 2020-09-12 08:43 | CCD | Continuity of Care Document ---
Author Author Sintia HOOVER Organization Unknown Address [address] [place] [address] Phone [phone] Care Team Providers Care Social Sciences Chair Name Role Phone Marc Ramirez M.D. AUTM [phone] [facility] AUTM [facility] AUTM [facility] AUTM [phone] [facility] Audiology & Physical Therapy AUTM [phone] [facility] Outpatient Mental Health AUTM [facility] Orthopedics AUTM [phone] [facility] AUTM [phone] [facility] AUTM [phone] [facility] Gastroenterology AUTM [phone] Francesco Gandhi AUTM [phone] Problems Active Problems Provider Date Gastroesophageal reflux disease Marc Ramirez MD Onset: 0 10/22/2016 Migraine without aura, not refractory Marc Ramirez MD On set: 10/22/2016 Insomnia Marc Ramirez MD Onset: 10/22/2016 Vitamin D deficiency Marc Ramirez MD Onset: 10/22/2016 Dystrophia unguium Marc Ramirez MD Onset: 01/17/2017 Abnormal menstrual cycle Marc Ramirez MD Onset: 01/18/20 17 Acquired renal cystic disease Marc Rmairez MD Onset: 07/2017 Recurrent major depressive episodes [...] for 5 days 70gm Xavier on Waldemar Folye M.D. 06/20/2020 Senna-S 8.6-50mg Tablets 1 cap by mouth once a day 90tabs K59.00 Marc Ramirez MD 02/16/2020 Vitamin D (Ergocalciferol) 1.25mg (60782 Ut) Capsules Take 1 Capsule By Mouth [...] H/L Range Note Laboratory test finding 06/15/2020 [facility] Syphilis NON-REACTIVE Normal:Non Reactive 1 Hep C Antibody With Reflex Quant PCR <0.1 s/coratio 0. 0-0.9 HIV Panel 06/15/2020 [facility] HIV Screen 4thGeneration wRfx Non Reactive Non Reacti ve Herpes Simplex AB Type2 06/15/2020 [facility] HSV 2 IgG, Type Spec <0.91 index 0.00-0.90 2 Affirm Vaginitis Panel 06/15/2020 [facility]Other Observations <pending> Bacterial Vaginosis 06/15/2020 [facility] Source: Genital 3 Margaret species Negative Negative Gardnerella vaginalis Positive Abnormal Negative Trichomonas vaginalis Negative Negative Chlamydia GC/Trich 06/15/2020 [facility] Source: Genital Chlamydia by Monserrat Negative Negative Gonococcus by Monserrat Negative Negative Trich vag by Monserrat Negative Negative Laboratory test finding 01/21/2020 [facility] Syphilis NON-REACTIVE Normal:Non Reactive 4 Hep C Antibody With Reflex Quant PCR <0.1 s/coratio 0. 0-0.9 Herpes Simplex Virus I/II Igg 01/21/2020 [facility] ospital HSV 1 IgG, Type Spec 56.50 index High 0.00-0.90 5 HSV 2 IgG, Type Spec <0.91 index 0.00-0.90 6 Herpes I&II Igm AB 01/21/2020 [facility] HSV, IgM I/II Combination <0.91 Ratio 0.00-0.90 7 HIV Panel 01/21/2020 [facility] HIV Screen 4thGeneration wRfx Non Reactive Non Reacti ve Chlamydia GC/Am 01/20/2020 [facility] Source: Genital 8 Chlamydia trachomatis,Monserrat Negative Negative Neisseria gonorrhoeae,Monserrat Negative Negative CBC W/Automated Diff 01/20/2020 [facility] CBC W/Automated Diff (SEE NOTE) 9, 10 [...] Lymph 22.6 % Low 25.0 - 40.0 [place] 6.4 % 3.0 - 8.0 Eos 0.9 % 0.0 - 7.0 Baso 0.5 % 0.0 - 2.5 %Ig 0.2 % High 0.0 - 0.0 %NRBC 0.0 % 0.0 - 0.0 #Neut 5.66 10^3/uL 2.00 - 6.90 #Lymph 1.84 10^3/uL 0.60 - 3.40 #[place] 0.52 10^3/uL 0.00 - 0.90 #Eos 0.07 10^3/uL 0.00 - 0.70 #Baso 0.04 10^3/uL 0.00 - 0.20 #Ig 0.02 10^3/uL 0.00 - 0.10 #NRBC 0.00 10^3/uL 0.00 - 0.00 Manual Diff NOT INDICATED RBC Morph NOT INDICATED Laboratory test finding 01/20/2020 [facility] l Vitamin D (25-Hydroxy) 31 NG/ML 11 Vitamin B12 Serum 413 pg/mL 232 - 1245 T4 - Free 1.02 ng/dL 0.93 - 1.70 Cve Panel 01/20/2020 [facility] Cve Panel (SEE NOTE) 12 Cholesterol 181 mg/dL 131 - 200 Triglycerides 53 mg/dL 35 - 160 HDL 59 mg/dL 29 - 86 LDL 111 mg/dL 65 - 175 Risk Factor 3.1 Low 3.2 - 4.4 LDL/HDL 1.88 1.47 - 3.22 13 Hemoglobin A1c 01/20/2020 [facility] HGB A1c 5.0 % 4.4 - 6.1 14 Laboratory test finding 01/20/2020 [facility] l TSH Highly Sensitive 0.90 uIU/mL [...] {HB] Procedures Date Code Description Status 01/19/2020 94805 Brief Emotional/Beha v Assessment W/ Scoring Doc [...] MD 01/20/2020 E66.9 Obesity, unspecified Marc I. Luke parekh MD 01/19/2020 G47.33 Obstructive sleep apnea (adult) (pediatric) Marc Ramirez MD 01/19/2020 E55.9 Vitamin D deficiency, unspecifie d Marc Ramirez MD 01/19/2020 K21.9 Gastro-esophageal reflux disease without esophagitis Marc Ramirez MD 01/19/2020 E66.9 Obesity, unspecified Marc I. Luke parekh MD 01/19/2020 R01.1 Cardiac murmur, pakoified Rajat Ramirez MD 01/19/2020 K59.00 Constipation, pakoified Marc Ramirez MD Plan of Treatment Future Appointment(s):* 07/13/2020 1:30 pm - Megha Espino NP at [facility] * 08/23/2020 10:00 am - Marc Ramirez MD at [facility] 06/15/2020 - Megha Espino NP* Z11.3 Encounter [...] eval and treat. Sent [address] [place] [address] [phone] [facility] 44 y/o F with hx of chest pain, tricuspid insufficiency, cardiac murmur, and pulmonary hypertension, referred for full cardiac evaluation with stress test. Closed 03/21/2020 [address] [place], [place] [id number] [phone] [facility] Gastroenterology 4 y/o F with hx of abdominal pain and constipation, family hx of colon cancer in an uncle and grandmother, pls eval and treat. Patient Notified 03/09/2020 [address] [place], [place] [id number] [phone] [facility] 44 y/o F with hx of cardi ac murmur, pls eval and treat. Closed 02/03/2020 [address] [place], [place] [address] [phone]
--- OUTSIDE RECORDS SUMMARY | 2020-09-12 08:43 | CCD | Continuity of Care Document ---
Author Author Sintia BOONE P.A.-C. Organization Unknown Address [address] [place] [address] Phone [phone] Care Team Providers Care Telephone Operator Receptionist Name Role Phone Marc Ramirez M.D. AUTM [phone] Problems Active Problems Provider Date Tension-type headache [...] Date Location Provider Dx Diagnosis Office Visit 04/04/2020 2:30p Main office - Lecanto Mara torres, P.A.-C. G43.019 Migraine w/o aura, intractable, without status migrainosus G47.33 Obstructive sleep apnea (darell lt) (pediatric) Assessments Date Code Description Provider 07/05/2020 G43.019 Migraine without aura, intractab le, without status migrainos Mara Boone P.A.-C. 07/05/2020 G47.33 Obstructive sleep apnea (adult) (pediatric) Mara Boone P.A.-C. 04/04/2020 G43.019 Migraine without aura, intractab le, without status migrainos Mara Boone P.A.-C. 04/04/2020 G47.33 Obstructive sleep apnea (adult) (pediatric) Mara Boone P.A.-C. Plan of Treatment No Information Available Functional Status Description No Information Available Mental Status Description No Information Available Referrals Description No Information Available
--- OUTSIDE RECORDS SUMMARY | 2020-09-12 08:43 | CCD | Continuity of Care Document ---
Author Author Sintia HOOVER Organization Unknown Address [address] [place] [address] Phone [phone] Care Team Providers Care Marketing Campaign Analyst Name Role Phone Marc Ramirez M.D. AUTM [phone] [facility] AUTM [facility] AUTM [facility] AUTM [phone] [facility] Audiology & Physical Therapy AUTM [phone] [facility] Outpatient Mental Health AUTM [facility] Orthopedics AUTM [phone] [facility] AUTM [phone] [facility] AUTM [phone] [facility] Gastroenterology AUTM [phone] Francesco Gandhi AUTM [phone] Problems Active Problems Provider Date Gastroesophageal reflux [...] SIG Qnty Indications Ordering Provide r Date Metrogel 1% Gel Delroy Foley M.D. 06/20/2020 Senna-S 8.6-50mg Tablets 1 cap by mouth once a day 90tabs K59.00 Marc Ramirez MD 02/16/2020 Vitamin D (Ergocalciferol) 1.25mg (59185 Ut) Capsules Take 1 Capsule By Mouth [...] H/L Range Note Laboratory test finding 06/15/2020 [facility] Syphilis NON-REACTIVE Normal:Non Reactive 1 Hep C Antibody With Reflex Quant PCR <0.1 s/coratio 0. 0-0.9 HIV Panel 06/15/2020 [facility] HIV Screen 4thGeneration wRfx Non Reactive Non Reacti ve Herpes Simplex AB Type2 06/15/2020 [facility] HSV 2 IgG, Type Spec <0.91 index 0.00-0.90 2 Affirm Vaginitis Panel 06/15/2020 [facility]Other Observations <pending> Bacterial Vaginosis 06/15/2020 [facility] Source: Genital 3 Margaret species Negative Negative Gardnerella vaginalis Positive Abnormal Negative Trichomonas vaginalis Negative Negative Chlamydia GC/Trich 06/15/2020 [facility] Source: Genital Chlamydia by Monserrat Negative Negative Gonococcus by Monserrat Negative Negative Trich vag by Monserrat Negative Negative Laboratory test finding 01/21/2020 [facility] Syphilis NON-REACTIVE Normal:Non Reactive 4 Hep C Antibody With Reflex Quant PCR <0.1 s/coratio 0. 0-0.9 Herpes Simplex Virus I/II Igg 01/21/2020 [facility] ospital HSV 1 IgG, Type Spec 56.50 index High 0.00-0.90 5 HSV 2 IgG, Type Spec <0.91 index 0.00-0.90 6 Herpes I&II Igm AB 01/21/2020 [facility] HSV, IgM I/II Combination <0.91 Ratio 0.00-0.90 7 HIV Panel 01/21/2020 [facility] HIV Screen 4thGeneration wRfx Non Reactive Non Reacti ve Chlamydia GC/Am 01/20/2020 [facility] Source: Genital 8 Chlamydia trachomatis,Monserrat Negative Negative Neisseria gonorrhoeae,Monserrat Negative Negative CBC W/Automated Diff 01/20/2020 [facility] CBC W/Automated Diff (SEE NOTE) 9, 10 [...] Lymph 22.6 % Low 25.0 - 40.0 [place] 6.4 % 3.0 - 8.0 Eos 0.9 % 0.0 - 7.0 Baso 0.5 % 0.0 - 2.5 %Ig 0.2 % High 0.0 - 0.0 %NRBC 0.0 % 0.0 - 0.0 #Neut 5.66 10^3/uL 2.00 - 6.90 #Lymph 1.84 10^3/uL 0.60 - 3.40 #[place] 0.52 10^3/uL 0.00 - 0.90 #Eos 0.07 10^3/uL 0.00 - 0.70 #Baso 0.04 10^3/uL 0.00 - 0.20 #Ig 0.02 10^3/uL 0.00 - 0.10 #NRBC 0.00 10^3/uL 0.00 - 0.00 Manual Diff NOT INDICATED RBC Morph NOT INDICATED Laboratory test finding 01/20/2020 [facility] l Vitamin D (25-Hydroxy) 31 NG/ML 11 Vitamin B12 Serum 413 pg/mL 232 - 1245 T4 - Free 1.02 ng/dL 0.93 - 1.70 Cve Panel 01/20/2020 [facility] Cve Panel (SEE NOTE) 12 Cholesterol 181 mg/dL 131 - 200 Triglycerides 53 mg/dL 35 - 160 HDL 59 mg/dL 29 - 86 LDL 111 mg/dL 65 - 175 Risk Factor 3.1 Low 3.2 - 4.4 LDL/HDL 1.88 1.47 - 3.22 13 Hemoglobin A1c 01/20/2020 [facility] HGB A1c 5.0 % 4.4 - 6.1 14 Laboratory test [facility] T[facility] Highly Sensitive 0.90 uIU/mL 0.47 - 5.01 Folic Acid Serum(Folate) 16.3 NG/ML 4.4 - 31.0 Order 01/20/2020 In Office Inhouse Wet [place] + lora [place] 1 .~.~<DG1.3.1>Z11.3</DG1.3.1><DG1.3.1>Z11.3</DG1.3.1><DG1.3.1>Z11.3</DG1.3.1><DG1 .3.1 2 Negative <0.91 Equivocal [...] {HB] Procedures Date Code Description Status 01/19/2020 35983 Brief Emotional/Beha v Assessment W/ Scoring Doc [...] Ramirez MD 01/19/2020 E66.9 Obesity, unspecified Marc IJodi parekh MD 01/19/2020 R01.1 Cardiac murmur, unspecified Rajat Ramirez MD 01/19/2020 K59.00 Constipation, unspecified Marc Ramirez MD Plan of Treatment Future Appointment(s):* 07/13/2020 1:30 pm - Megha Espino NP at [facility] * 08/23/2020 10:00 am - Marc Ramirez MD at [facility] 06/15/2020 - Megha Espino NP* Z11.3 Encounter [...] Pls eval and treat. Sent [address] [place] [address] [phone] [facility] 44 y/o F with hx of chest pain, tricuspid insufficiency, cardiac murmur, and pulmonary hypertension, referred for full cardiac evaluation with stress test. Closed 03/21/2020 [address] [place], [place] [id number] [phone] [facility] Gastroenterology 4 y/o F with hx of abdominal pain and constipation, family hx of colon cancer in an uncle and grandmother, pls eval and treat. Patient Notified 03/09/2020 [address] [place], [place] [id number] [phone] [facility] 44 y/o F with hx of cardi ac murmur, pls eval and treat. Closed 02/03/2020 [address] [place], [place] [address] [phone]
--- OUTSIDE RECORDS SUMMARY | 2020-09-12 08:44 | CCD ---
Author Author [facility] Organization [facility] Address Unknown Phone Unavailable Care Team Providers Care Special Education Superintendent Name Role Phone Tonya ELIZABETH MD Unavailable Unavailable ANTECOL, Tonya JEAN MD Unavailable Unavailable ANTECOL, Tonya JEAN MD Unavailable Unavailable ANTECOLTonya MD Unavailable Unavailable ANTECOL, Tonya JEAN MD Unavailable Unavailable ANTECOL, Tonya JEAN MD Unavailable Unavailable ANTECOL, Tonya JEAN MD Unavailable Unavailable ANTECOL, Tonya JEAN MD Unavailable Unavailable ANTECOL, Tonya JEAN MD Unavailable Unavailable ANTECOLTonya MD Unavailable Unavailable ANTECOL, Tonya JEAN MD Unavailable Unavailable ANTECOL, Tonya JEAN MD Unavailable Unavailable ANTECOL, Tonya JEAN MD Unavailable Unavailable ANTECOL, Tonya JEAN MD Unavailable Unavailable ANTECOL, Tonya JEAN MD Unavailable Unavailable ANTECOL, Tonya JEAN MD Unavailable Unavailable ANTECOL, Tonya JEAN MD Unavailable Unavailable ANTECOL, Tonya JEAN MD Unavailable Unavailable ANTECOL, Tonya JEAN MD Unavailable Unavailable ANTECOL, Tonya JEAN MD Unavailable Unavailable ANTECOL, Tonya JEAN MD Unavailable Unavailable ANTECOL, Tonya JEAN MD Unavailable Unavailable ANTECOL, Tonya JEAN MD Unavailable Unavailable ANTECOL, Tonya JEAN MD Unavailable Unavailable ANTECOL, Tonya JEAN MD Unavailable Unavailable ANTECOL, Tonya JEAN MD Unavailable Unavailable ANTECOL, Tonya JEAN MD Unavailable Unavailable ANTECOL, Tonya JEAN MD Unavailable Unavailable ANTECOL, Tonya JEAN MD Unavailable Unavailable ANTECOL, Tonya JEAN MD Unavailable Unavailable ANTECOL, Tonya JEAN MD Unavailable Unavailable ANTECOL, Tonya JEAN MD Unavailable Unavailable ANTECOL, Tonya JEAN MD Unavailable Unavailable ANTECOL, Tonya JEAN MD Unavailable Unavailable ANTECOL, Tonya JEAN MD Unavailable Unavailable ANTECOL, Tonya JEAN MD Unavailable Unavailable ANTECOL, Tonya JEAN MD Unavailable Unavailable ANTECOL, Tonya JEAN MD Unavailable Unavailable ANTECOL, Tonya JEAN MD Unavailable Unavailable ANTECOL, Tonya JEAN MD Unavailable Unavailable ANTECOL, Tonya JEAN MD Unavailable Unavailable ANTECOL, Tonya JEAN MD Unavailable Unavailable ANTECOL, Tonya JEAN MD Unavailable Unavailable ANTECOL, Tonya JEAN MD Unavailable Unavailable ANTECOL, Tonya JEAN MD Unavailable Unavailable ANTECOL, Tonya JEAN MD Unavailable Unavailable ANTECOL, Tonya JEAN MD Unavailable Unavailable ANTECOL, Tonya JEAN MD Unavailable Unavailable ANTECOL, Tonya JEAN MD Unavailable Unavailable ANTECOL, Tonya JEAN MD Unavailable Unavailable ANTECOL, Tonya JEAN MD Unavailable Unavailable ANTECOL, Tonya JEAN MD Unavailable Unavailable ANTECOL, Tonya JEAN MD Unavailable Unavailable ANTECOL, Tonya JEAN MD Unavailable Unavailable ANTECOL, Tonya JEAN MD Unavailable Unavailable Trickey, J Mara PA Unavailable Unavailable Trickey, J Mara PA Unavailable Unavailable Trickey, J Mara PA Unavailable Unavailable Trickey, J Mara PA Unavailable Unavailable Trickey, J Mara PA Unavailable Unavailable Trickey, J Mara PA Unavailable Unavailable Trickey, J Mara PA Unavailable Unavailable Trickey, J Mara PA Unavailable Unavailable Trickey, J Mara PA Unavailable Unavailable Trickey, J Mara PA Unavailable Unavailable Trickey, J Mara PA Unavailable Unavailable Trickey, J Mara PA Unavailable Unavailable Trickey, J Mara PA Unavailable Unavailable Trickey, J Mara PA Unavailable Unavailable Trickey, J Mara PA Unavailable Unavailable Trickey, J Mara PA Unavailable Unavailable Trickey, J Mara PA Unavailable Unavailable Trickey, J Mara PA Unavailable Unavailable Trickey, J Mara PA Unavailable Unavailable Trickey, J Mara PA Unavailable Unavailable Trickey, J Mara PA Unavailable Unavailable Trickey, J Mara PA Unavailable Unavailable Trickey, J Mara PA Unavailable Unavailable Trickey, J Mara PA Unavailable Unavailable Trickey, J Mara PA Unavailable Unavailable Trickey, J Mara PA Unavailable Unavailable Trickey, J Mara PA Unavailable Unavailable Trickey, J Mara PA Unavailable Unavailable Trickey, J Amra PA Unavailable Unavailable Trickey, J Mara PA Unavailable Unavailable Trickey, J Mara PA Unavailable Unavailable Trickey, J Mara PA Unavailable Unavailable Trickey, J Mara PA Unavailable Unavailable Trickey, J Mara PA Unavailable Unavailable Trickey, J Mara PA Unavailable Unavailable Trickey, J Mara PA Unavailable Unavailable Trickey, J Mara PA Unavailable Unavailable Trickey, J Mara PA Unavailable Unavailable Trickey, J Mara PA Unavailable Unavailable Trickey, J Mara PA Unavailable Unavailable Trickey, J Mara PA Unavailable Unavailable Trickey, J Mara PA Unavailable Unavailable Trickey, J Mara PA Unavailable Unavailable Trickey, J Mara PA Unavailable Unavailable Trickey, J Mara PA Unavailable Unavailable Trickey, J Mara PA Unavailable Unavailable Trickey, J Mara PA Unavailable Unavailable Trickey, J Mara PA Unavailable Unavailable Trickey, J Mara PA Unavailable Unavailable Trickey, J Mara PA Unavailable Unavailable Trickey, J Mara PA Unavailable Unavailable Trickey, J Mara PA Unavailable Unavailable BUMBANAC, A STAR BEREAVEMENT COORDINATOR Unavailable Unavailable BUMBANAC, A STAR BEREAVEMENT COORDINATOR Unavailable Unavailable BUMBANAC, A STAR BEREAVEMENT COORDINATOR Unavailable Unavailable BUMBANAC, A STAR BEREAVEMENT COORDINATOR Unavailable Unavailable BUMBANAC, A STAR BEREAVEMENT COORDINATOR Unavailable Unavailable BUMBANAC, A STAR BEREAVEMENT COORDINATOR Unavailable Unavailable BUMBANAC, A STAR BEREAVEMENT COORDINATOR Unavailable Unavailable BUMBANAC, A STAR BEREAVEMENT COORDINATOR Unavailable Unavailable BUMBANAC, A STAR BEREAVEMENT COORDINATOR Unavailable Unavailable BUMBANAC, A STAR BEREAVEMENT COORDINATOR Unavailable Unavailable BUMBANAC, A STAR BEREAVEMENT COORDINATOR Unavailable Unavailable BUMBANAC, A STAR BEREAVEMENT COORDINATOR Unavailable Unavailable BUMBANAC, A STAR BEREAVEMENT COORDINATOR Unavailable Unavailable BUMBANAC, A STAR BEREAVEMENT COORDINATOR Unavailable Unavailable BUMBANAC, A STAR BEREAVEMENT COORDINATOR Unavailable Unavailable BUMBANAC, A STAR BEREAVEMENT COORDINATOR Unavailable Unavailable BUMBANAC, A STAR BEREAVEMENT COORDINATOR Unavailable Unavailable BUMBANAC, A STAR BEREAVEMENT COORDINATOR Unavailable Unavailable BUMBANAC, A STAR BEREAVEMENT COORDINATOR Unavailable Unavailable BUMBANAC, A STAR BEREAVEMENT COORDINATOR Unavailable Unavailable BUMBANAC, A STAR BEREAVEMENT COORDINATOR Unavailable Unavailable BUMBANAC, A STAR BEREAVEMENT COORDINATOR Unavailable Unavailable BUMBANAC, A STAR BEREAVEMENT COORDINATOR Unavailable Unavailable BUMBANAC, A STAR BEREAVEMENT COORDINATOR Unavailable Unavailable BUMBANAC, A STAR BEREAVEMENT COORDINATOR Unavailable Unavailable DEMARTINI, M FREDDY PA Unavailable Unavailable DEMARTINI, M FREDDY PA Unavailable Unavailable DEMARTINI, M FREDDY PA Unavailable Unavailable DEMARTINI, M FREDDY PA Unavailable Unavailable DEMARTINI, M FREDDY PA Unavailable Unavailable DEMARTINI, M FREDDY PA Unavailable Unavailable DEMARTINI, M FREDDY PA Unavailable Unavailable DEMARTINI, M FREDDY PA Unavailable Unavailable DEMARTINI, M FREDDY PA Unavailable Unavailable DEMARTINI, M FREDDY PA Unavailable Unavailable DEMARTINI, M FREDDY PA Unavailable Unavailable DEMARTINI, M FREDDY PA Unavailable Unavailable DEMARTINI, M FREDDY PA Unavailable Unavailable DEMARTINI, M FREDDY PA Unavailable Unavailable DEMARTINI, M FREDDY PA Unavailable Unavailable DEMARTINI, M FREDDY PA Unavailable Unavailable DEMARTINI, M FREDDY PA Unavailable Unavailable DEMARTINI, M FREDDY PA Unavailable Unavailable DEMARTINI, M FREDDY PA Unavailable Unavailable DEMARTINI, M FREDDY PA Unavailable Unavailable DEMARTINI, M FREDDY PA Unavailable Unavailable DEMARTINI, M FREDDY PA Unavailable Unavailable DEMARTINI, M FREDDY PA Unavailable Unavailable DEMARTINI, M FREDDY PA Unavailable Unavailable DEMARTINI, M FREDDY PA Unavailable Unavailable DEMARTINI, M FERDDY PA Unavailable Unavailable DEMARTINI, M FREDDY PA Unavailable Unavailable DEMARTINI, M FREDDY PA Unavailable Unavailable DEMARTINI, M FREDDY PA Unavailable Unavailable DEMARTINI, M FREDDY PA Unavailable Unavailable DEMARTINI, M FREDDY PA Unavailable Unavailable DEMARTINI, M FREDDY PA Unavailable Unavailable DEMARTINI, M FREDDY PA Unavailable Unavailable DEMARTINI, M FREDDY PA Unavailable Unavailable DEMARTINI, M FREDDY PA Unavailable Unavailable DEMARTINI, M FREDDY PA Unavailable Unavailable DEMARTINI, M FREDDY PA Unavailable Unavailable DEMARTINI, M FREDDY PA Unavailable Unavailable DEMARTINI, M FREDDY PA Unavailable Unavailable DEMARTINI, M FREDDY PA Unavailable Unavailable DEMARTINI, M FREDDY PA Unavailable Unavailable DEMARTINI, M FREDDY PA Unavailable Unavailable DEMARTINI, M FREDDY PA Unavailable Unavailable GARCIA, JAKE MD Unavailable Unavailable GARCIA, JAKE MD Unavailable Unavailable GARCIA, JAKE MD Unavailable Unavailable GARCIA, JAKE MD Unavailable Unavailable GARCIA, JAKE MD Unavailable Unavailable GARCIA, JAKE MD Unavailable Unavailable GARCIA, JAKE MD Unavailable Unavailable GARCIA, JAKE MD Unavailable Unavailable GARCIA, JAKE MD Unavailable Unavailable GARCIA, JAKE MD Unavailable Unavailable GARCIA, JAKE MD Unavailable Unavailable GARCIA, JAKE MD Unavailable Unavailable GARCIA, JAKE MD Unavailable Unavailable GARCIA, JAKE MD Unavailable Unavailable GARCIA, JAKE MD Unavailable Unavailable GARCIA, JAKE MD Unavailable Unavailable GARCIA, JAKE MD Unavailable Unavailable GARCIA, JAKE MD Unavailable Unavailable GARCIA, JAKE MD Unavailable Unavailable GARCIA, JAKE MD Unavailable Unavailable GARCIA, JAKE MD Unavailable Unavailable GARCIA, JAKE MD Unavailable Unavailable GARCIA, JAKE MD Unavailable Unavailable GARCIA, JAKE MD Unavailable Unavailable GARCIA, JAKE MD Unavailable Unavailable GARCIA, JAKE MD Unavailable Unavailable GARCIA, JAKE MD Unavailable Unavailable GARCIA, JAKE MD Unavailable Unavailable GARCIA, JAKE MD Unavailable Unavailable GARCIA, JAKE MD Unavailable Unavailable GARCIA, JAKE MD Unavailable Unavailable GARCIA, JAKE MD Unavailable Unavailable GARCIA, JAKE MD Unavailable Unavailable GARCIA, JAKE MD Unavailable Unavailable GARCIA, JAKE MD Unavailable Unavailable GARCIA, JAKE MD Unavailable Unavailable GARCIA, JAKE MD Unavailable Unavailable GARCIA, JAKE MD Unavailable Unavailable GARCIA, JAKE MD Unavailable Unavailable GARCIA, JAKE MD Unavailable Unavailable GARCIA, JAKE MD Unavailable Unavailable GARCIA, JAKE MD Unavailable Unavailable GARCIA, JAKE MD Unavailable Unavailable AGRCIA, JAKE MD Unavailable Unavailable GARCIA, JAKE MD Unavailable Unavailable GARCIA, JAKE MD Unavailable Unavailable GARCIA, JAKE MD Unavailable Unavailable GARCIA, JAKE MD Unavailable Unavailable GARCIA, JAKE MD Unavailable Unavailable GARCIA, JAKE MD Unavailable Unavailable GARCIA, JAKE MD Unavailable Unavailable GARCIA, JAKE MD Unavailable Unavailable GARCIA, JAKE MD Unavailable Unavailable GARCIA, JAKE MD Unavailable Unavailable GARCIA, JAKE MD Unavailable Unavailable GARCIA, JAKE MD Unavailable Unavailable GARCIA, JAKE MD Unavailable Unavailable GARCIA, JAKE MD Unavailable Unavailable GARCIA, JAKE MD Unavailable Unavailable GARCIA, JAKE MD Unavailable Unavailable GARCIA, JAKE MD Unavailable Unavailable GARCIA, JAKE MD Unavailable Unavailable GARCIA, JAKE MD Unavailable Unavailable JAKE GARCIA MD Unavailable Unavailable JAKE GARCIA MD Unavailable Unavailable JAKE GARCIA MD Unavailable Unavailable JAKE GARCIA MD Unavailable Unavailable JAKE GARCIA MD Unavailable Unavailable JAKE GARCIA MD Unavailable Unavailable JOHNSON, JIN JUAN BEREAVEMENT COORDINATOR Unavailable Unavailable JOHNSON, JIN JUAN BEREAVEMENT COORDINATOR Unavailable Unavailable JOHNSON, JIN JUAN BEREAVEMENT COORDINATOR Unavailable Unavailable JOHNSON, JIN JUAN BEREAVEMENT COORDINATOR Unavailable Unavailable JOHNSON, JIN JUAN BEREAVEMENT COORDINATOR Unavailable Unavailable JOHNSON, JIN JUAN BEREAVEMENT COORDINATOR Unavailable Unavailable JOHNSON, JIN JUAN BEREAVEMENT COORDINATOR Unavailable Unavailable JOHNSON, JIN JUAN BEREAVEMENT COORDINATOR Unavailable Unavailable JOHNSON, JIN JUAN BEREAVEMENT COORDINATOR Unavailable Unavailable JOHNSON, JIN JUAN BEREAVEMENT COORDINATOR Unavailable Unavailable JOHNSON, JIN JUAN BEREAVEMENT COORDINATOR Unavailable Unavailable JOHNSON, JIN JUAN BEREAVEMENT COORDINATOR Unavailable Unavailable JOHNSON, JIN JUAN BEREAVEMENT COORDINATOR Unavailable Unavailable JOHNSON, JIN JUAN BEREAVEMENT COORDINATOR Unavailable Unavailable JOHNSON, JIN JUAN BEREAVEMENT COORDINATOR Unavailable Unavailable JOHNSON, JIN JUAN BEREAVEMENT COORDINATOR Unavailable Unavailable JOHNSON, JIN JAUN BEREAVEMENT COORDINATOR Unavailable Unavailable JOHNSON, JIN JUAN BEREAVEMENT COORDINATOR Unavailable Unavailable JOHNSON, JIN JUAN BEREAVEMENT COORDINATOR Unavailable Unavailable JOHNSON, JIN JUAN BEREAVEMENT COORDINATOR Unavailable Unavailable JOHNSON, JIN JUAN BEREAVEMENT COORDINATOR Unavailable Unavailable JOHNSON, JIN JUAN BEREAVEMENT COORDINATOR Unavailable Unavailable JOHNSON, JIN JUAN BEREAVEMENT COORDINATOR Unavailable Unavailable [facility], [id number] Unavailable Unavailable Overholt, T Wayne PA Unavailable Unavailable Overholt, T Wayne PA Unavailable Unavailable Overholt, T Wayne PA Unavailable Unavailable Overholt, T Wayne PA Unavailable Unavailable Overholt, T Wayne PA Unavailable Unavailable Overholt, T Wayne PA Unavailable Unavailable Overholt, T Wayne PA Unavailable Unavailable Overholt, T Wayne PA Unavailable Unavailable Overholt, T Wayne PA Unavailable Unavailable Overholt, T Wayne PA Unavailable Unavailable Overholt, T Wayne PA Unavailable Unavailable Overholt, T Wayne PA Unavailable Unavailable Overholt, T Wayne PA Unavailable Unavailable Overholt, T Wayne PA Unavailable Unavailable Overholt, T Wayne PA Unavailable Unavailable Overholt, T Wayne PA Unavailable Unavailable Re-disclosure Warning The records that you are about to access may contain information from federally-assisted alcohol or drug abuse programs. If such information is present, then the following federally mandated warning applies: This information has been disclosed to you from records protected by federal confidentiality rules (42 CFR part 2). The federal rules prohibit you from making any further disclosure of this information unless further disclosure is expressly permitted by the written consent of the person to whom it pertains or as otherwise permitted by 42 CFR part 2. A general authorization for the release of medical or other information is NOT sufficient for this purpose. The Federal rules restrict any use of the information to criminally investigate or prosecute any alcohol or drug abuse patient.The records that you are about to access may contain highly sensitive health information, the redisclosure of which is protected by Article 27-F of the [facility] Public Health law. If you continue you may have access to information: Regarding HIV / AIDS; Provided by facilities licensed or operated by the [facility] Office of Mental Health; or Provided by the [facility] Office for People With Developmental Disabilities. If such information is present, then the following [facility] mandated warning applies: This information has been disclosed to you from confidential records which are protected by state law. State law prohibits you from making any further disclosure of this information without the specific written consent of the person to whom it pertains, or as otherwise permitted by law. Any unauthorized further disclosure in violation of state law may result in a fine or alf sentence or both. A general authorization for the release of medical or other information is NOT sufficient authorization for further disc losure. Allergies and Adverse Reactions Type Description Substance Reaction Status Data Source(s ) No Known Drug Allergies No Known Drug Allergies [facility] Food allergy NECTARINE; PLUMS; CITRUS NECTARINE; PLUMS; CITRUS [facility] [id number] [facility] Drug Class NO KNOWN ALLERGIES NO KNOWN ALLERGIES [facility] Family History Family Member Name Family Member Gender Family Member Status Date o f Status Description Data Source(s) Unknown Male Problem [facility] ([facility]) Unknown Female Problem [facility] ([facility]) Encounters Encounter Providers Location Date Indications Data Source(s ) Outpatient Attender: JAKE GARCIA MDConsultant: JAKE Hernandez MD 08/24/2020 12:53:00 PM [facility] - 08/24/2020 12:53:00 PM [facility] Outpatient Attender: JEFF POPE NP 08/19 09:41:00 AM EST - 08/19/2020 09:41:00 AM [facility] Outpatient Attender: JUAN JOHNSON NPConsultant: JAKE GARCIA MD 07/13/2020 01:34:00 PM EST - 07/13/2020 01:34:00 PM [facility] Outpatient Attender: JUAN JOHNSON NP Family Practice 07/13/2020 12 :30:00 PM EST [facility] ([facility]) Office Visit Attender: Mara METCALF Main office - [facility] 07/05/2020 10:15:00 AM EST [facility] Outpatient Attender: JUAN JOHNSON NPConsultant: JAKE GARCIA MD 06/15/2020 04:05:00 PM EST - 06/15/2020 05:05:00 PM [facility] Outpatient Attender: JUAN JOHNSON NP 02:49:00 PM EST - 06/15/2020 02:49:00 PM [facility] Outpatient Attender: JUAN JOHNSON NP Family Practice 06/15/2020 02 :15:00 PM EST [facility] ([facility]) Outpatient Attender: Wayne METCALF Main Office 05/03/2020 1 1:00:00 AM EDT [facility] ([facility] ) Outpatient Attender: Mara METCALF Main office - [facility] 04/04/2020 02:30:00 PM EDT [facility] Outpatient Attender: JAKE GARCIA MDConsultant: JAKE Hernandez MD 03/17/2020 02:50:00 PM EDT - 03/17/2020 02:50:00 PM EDT [facility] Outpatient Attender: JUAN JOHNSON NPConsultant: JAKE GARCIA MD 02/25/2020 01:58:00 PM EDT - 02/25/2020 01:58:00 PM EDT [facility] Outpatient Attender: JAKE GARCIA MDConsultant: JAKE Hernandez MD 02/18/2020 10:08:00 AM EDT - 02/18/2020 10:08:00 AM EDT [facility] Outpatient Attender: JAKE GARCIA MD Family Practice 02/18/2020 1 0:00:00 AM EDT [facility] ([facility]) Outpatient Attender: MIRANDA ELIZABETH MD Main Office 02/03/2020 09:45:00 AM EDT [facility] ([facility]) Outpatient Attender: JUAN JOHNSON NPRefe rrer: JUAN JOHNSON NPConsultant: JAKE GARCIA MD 01/21/2020 12:12:00 PM EDT - 01/21/2020 12:22:00 PM EDT [facility] Outpatient Attender: JUAN JOHNSON NP Family Practice 01/20/2020 04 :00:00 PM EDT [facility] ([facility]) Outpatient Attender: JUAN OJHNSON NPConsultant: JAKE GARCIA MD 01/20/2020 03:01:00 PM EDT - 01/20/2020 03:01:00 PM EDT [facility] Outpatient Attender: JAKE GARCIA MDConsultant: JAKE Hernandez MD 01/20/2020 01:26:00 PM EDT - 01/20/2020 01:26:00 PM EDT [facility] Outpatient Attender: JAKE GARCIA MD Family Practice 01/19/2020 1 0:20:00 AM EDT [facility] ([facility]) Outpatient Attender: JAKE GARCIA MDConsultant: JAKE Hernandez MD 01/19/2020 10:01:00 AM EDT - 01/19/2020 10:01:00 AM EDT [facility] Outpatient Attender: [id number] [facility] 01/09/2020 12:06:04 AM EDT [facility] Outpatient Attender: FREDDY METCALF 12/07/2019 12:00: 00 AM [facility] Outpatient Attender: JUAN JOHNSON NP 020 01:41:00 PM EDT - 11/10/2019 01:41:00 PM EDT [facility] Outpatient Attender: JUAN JOHNSON NP Family Practice 11/10/2019 01 :30:00 PM EDT [facility] ([facility]) Outpatient Attender: FREDDY METCALF [id number] 10/06/2019 12:00:00 AM EST Flat foot (pes planus) (acquired), right foot [facility] Flat foot (pes planus) (acquired), right foot Outpatient Attender: FREDDY METCALF 09/29/2019 12:00: 00 AM EST [facility] Outpatient Attender: JAKE GARCIA MDConsultant: JAKE Hernandez MD 08/19/2019 02:29:00 PM EST - 08/19/2019 02:29:00 PM EST [facility] [place] [address] [place] [id number] 08/09/2019 12:00:00 AM EST eCW1 ([facility]) Outpatient Attender: JAKE GARCIA MDConsultant: JAKE Hernandez MD 07/20/2019 10:53:00 AM EST - 07/20/2019 10:53:00 AM EST [facility] Outpatient Attender: JAKE GARCIA MD Family [facility] 07/20/2019 1 0:00:00 AM EST [facility] ([facility]) Outpatient Referrer: FREDDY METCALF 06/29/2019 12:00:00 AM EST Flat foot (pes planus) (acquired), right foot [facility] Flat foot (pes planus) (acquired), right foot Outpatient Referrer: FREDDY METCALF 06/29/2019 12:00:00 AM EST Flat foot (pes planus) (acquired), right foot [facility] Flat foot (pes planus) (acquired), right foot Medications Medication Brand Name Start Date Product Form Dose Route Admi nistrative Instructions Pharmacy Instructions Status Indications Reaction Description Data Source(s) Metronidazole 0.0075 MG/MG Vaginal Gel [MetroGel] Metrogel-V aginal 06/20/2020 12:00:00 AM EST active M [facility]ENT ([facility]) Metronidazole 0.01 MG/MG Topical Gel [MetroGel] Metrogel 06/20/2020 12:00:00 AM EST active [facility] ([facility]) Hydroxyzine Hydrochloride 25 MG Oral Tablet Hydroxyzine HCL 05/03/2020 12:00:00 AM EDT active [facility] Docusate Sodium 100 MG Oral Capsule Stool Softener 03/20/2020 12:00 :00 AM EDT ORAL active [facility] ([facility]) Sumatriptan 50 MG Oral Tablet Sumatriptan Succinate 03/20/2020 1 2:00:00 AM EDT ORAL active [facility] ( [facility]) Sambucus Elderberry 03/20/2020 12:00:00 AM EDT ORAL active [facility] ([facility]) Ascorbic Acid 60 MG / Beta Carotene 5000 UNT / Copper Sulfate 40 MG / dl-alpha tocopheryl acetate 30 UNT / Sodium Selenite 0.04 MG / Zinc Oxide 40 MG Oral Tablet Vitamins/Minerals 03/20/2020 12:00:00 AM EDT ORAL active [facility] ([facility]) OREGANO OIL 1500 MG Oral Capsule Oil Of Oregano 03/20/2020 12:00:00 A M EDT ORAL active [facility] Ascorbic Acid 60 MG / Beta Carotene 5000 UNT / Copper Sulfate 40 MG / dl-alpha tocopheryl acetate 30 UNT / Sodium Selenite 0.04 MG / Zinc Oxide 40 MG Oral Tablet Multivitamin Women 03/20/2020 12:00:00 AM EDT ORAL active [facility] ([facility]) Docusate Sodium 50 MG / sennosides, S[facility] L[facility]ING 8.6 MG Oral Tablet E q Senna-S 02/16/2020 12:00:00 AM EDT ORAL active [facility] ([facility]) levocetirizine dihydrochloride 5 MG Oral Tablet [Xyzal] Xyza l Allergy 24HR 02/02/2020 12:00:00 AM EDT ORAL active [facility] ([facility]) lansoprazole 30 MG Delayed Release Oral Capsule [Prevacid] P revacid 02/02/2020 12:00:00 AM EDT ORAL completed [facility] ([facility]) Ergocalciferol 42029 UNT Oral Capsule Vitamin D (Ergocalcife rol) 02/02/2020 12:00:00 AM EDT ORAL active M EDENT ([facility]) 0.5 ML Sumatriptan 12 MG/ML Auto-Injector Sumatriptan Succin ate 02/02/2020 12:00:00 AM EDT completed [facility] ([facility]) Docusate Sodium 100 MG Oral Capsule [Colace] Colace 12:00:00 AM EDT ORAL completed [facility] ([facility]) Acetaminophen 325 MG / Oxycodone Hydrochloride 5 MG Or al Tablet Oxycodone-Acetaminophen 02/02/2020 12:00:00 AM EDT ORAL active [facility] ([facility]) Ergocalciferol 28789 UNT Oral Capsule Vitamin D (Ergocalcife rol) 11/12/2019 12:00:00 AM EDT ORAL active [facility] [facility] Docusate Sodium 100 MG Oral Capsule [Colace] Colace 09/2019 12:00:00 AM EDT ORAL completed MEDENT ([facility]) Metronidazole 0.0075 MG/MG Vaginal Gel Metronidazole 0 12:00:00 AM EDT completed [facility] ([facility]) Acetaminophen 325 MG / Oxycodone Hydroch loride 5 MG Oral Tablet oxyCODONE- Acetaminophen 5-325 MG Oral Tablet (PERCOCET) oxyCODONE-Acetaminophen 5-325 MG Oral Tablet (PERCOCET) 09/29/2019 12:00:00 AM EST active TAKE 1 TABLET BY MOUTH THREE TIMES DAILY NEEDED FOR PAIN . DO NOT EXCEED 3 PER 24 HOURS [facility] Zofran ODT 4 MG UNK 08/09/2019 12:00:00 AM EST active 1 tablet on the tongue and allow to dissolve eCW1 ([facility]) duloxetine 60 MG Delayed Release Oral Ca psule DULoxetine HCl 60 MG Oral Capsule Delayed Release Particles (CYMBALTA) DULoxetine HCl 60 MG Oral Capsule Delaye d Release Particles (CYMBALTA) 07/31/2019 12:00:00 AM EST 60 mg Oral active Take 60 mg by mouth daily [facility] duloxetine 60 MG Delayed Release Oral Capsule Duloxetine HCL 07/20/2019 12:00:00 AM EST ORAL active [facility] ([facility]) meloxicam 15 MG Oral Tablet Meloxicam 15 MG Oral Table t (MOBIC) Meloxicam 15 MG Oral Tablet (MOBIC) 06/29/2019 12:00:00 AM EST 15 mg Oral aborted Take 1 tablet by mouth daily [facility] celecoxib 100 MG Oral Capsule [Celebrex] Celebrex 05/06/2019 12 :00:00 AM EDT ORAL completed MEDENT ([facility]) duloxetine 20 MG Delayed Release Oral Ca psule DULoxetine (CYMBALTA) 20 MG capsule DULoxetine (CYMBALTA) 20 MG capsule 04/29/2019 12:00:00 AM EDT 20 mg Oral aborted Take 20 mg by mouth daily [facility] duloxetine 20 MG Delayed Release Oral Capsule Duloxetine HCL 03/31/2019 12:00:00 AM EDT ORAL completed MEDENT ([facility]) cetirizine hydrochloride 10 MG Oral Tablet cetirizine (ZYRTEC) 10 MG tablet cetirizine (ZYRTEC) 10 MG tablet 10 mg Oral abort ed Take 10 mg by mouth daily [facility] Insurance Providers Payer name Policy type / Coverage type Policy ID Covered constitution party ID Covered constitution party's relationship to abrams Policy Abrams Plan Information [facility] COMMUNITY PLAN [id number] [id number] SP [id number] [place]ED[place] [id number] SP [id number] HMO BLUE [id number] SP [id number] [facility] COMMUNTY PLAN [id number] 18 [id number] [facility] COMMUNITY PLAN XIX [id number] 18 [id number] [facility] COMMUNITY PLAN XIX [id number] 18 [id number] [facility] COMMUNITY PLAN [facility] [id number] SP [id number] Managed Care - [facility] Community Plan P [id number] S [id number] Medicaid S [id number] S [id number] [facility] I [id number] Self [id number] MEDICAID [id number] SP [id number] [facility] I [id number] Self [id number] MEDICAID M [id number] Self [id number] [facility] Medigap Part B [id number] Self [id number] BS [facility] Hmo Blue Option Medigap Part B [id number] Self [id number] [facility] Community Plan Commercial [id number] Self [id number] Medicaid [place] Medigap Part B [id number] Self [id number] [facility] Communty Plan Medicaid [id number] Self [id number] Community Plan - [facility] Commercial [id number] Self [id number] [facility] Communty Plan Medicaid [id number] Self [id number] [facility] Communty Plan Medicaid [id number] Self [id number] [facility] Communty Plan Medicaid [id number] Self [id number] Managed Care - Community Plan [facility] P [id number] S [id number] [facility] Communty Plan Medicaid [id number] Self [id number] [facility] Medigap Part B [id number] Self [id number] BS [facility] Hmo Blue Option Medigap Part B [id number] Self [id number] [facility] Medigap Part B [id number] Self [id number] [facility] Hmo Blue Option Medigap Part B [id number] Self [id number] [facility] Medigap Part B [id number] Self [id number] BS [facility] Hmo Blue Option Medigap Part B [id number] Self [id number] [facility] Medigap Part B [id number] Self [id number] [facility] Hmo Blue Option Medigap Part B [id number] Self [id number] [facility] Medigap Part B [id number] Self [id number] [facility] Hmo Blue Option Medigap Part B [id number] Self [id number] [facility] Medigap Part B [id number] Self [id number] BS [facility] Hmo Blue Option Medigap Part B [id number] Self [id number] [facility] Communty Plan Medicaid [id number] Self [id number] [facility] [id number] SP [id number] [facility] Medigap Part B [id number] Self [id number] BS [facility] Hmo Blue Option Medigap Part B [id number] Self [id number] [facility] Communty Plan Medicaid [id number] Self [id number] [facility] Medigap Part B [id number] Self [id number] BS [facility] Hmo Blue Option Medigap Part B [id number] Self [id number] [facility] Communty Plan Medicaid [id number] Self [id number] [facility] Medigap Part B [id number] Self [id number] BS [facility] Hmo Blue Option Medigap Part B [id number] Self [id number] [facility] Medigap Part B [id number] Self [id number] BS [facility] Hmo Blue Option Medigap Part B [id number] Self [id number] [facility] Community Plan Commercial [id number] Self [id number] [facility] O [id number] S [id number] [facility] Community [id number] Preferred Provider Organization (PPO) [id number] [facility] Medigap Part B [id number] Self [id number] BS [facility] Hmo Blue Option Medigap Part B [id number] Self [id number] [facility] Communty Plan Medicaid [id number] Self [id number] MEDICAID M [id number] S [id number] UHC I [id number] Self [id number] [facility] COMMUNITY PLAN MCDHMO [id number] SP [id number] [facility] COMMUNITY PLAN MCDHMO [id number] SP [id number] [facility] COMMUNITY PLAN MCDHMO [id number] SP [id number] [facility] COMMUNITY PLAN MCDHMO [id number] SP [id number] [facility] Communty Plan Medicaid [id number] Self [id number] [facility] COMMUNTY PLAN XIX MC [id number] 18 [id number] U[facility] COMMUNITY PLAN [id number] 18 [id number] BH [facility] Community Plan Commercial [id number] Self [id number] [facility] Communty Plan Medicaid [id number] Self [id number] [facility] Communty Plan Medicaid [id number] Self [id number] [facility] Community Plan Commercial [id number] Self [id number] [facility] COMMUNITY PLAN MC [id number] 18 [id number] [facility] [id number] 18 [id number] [facility] Community Plan Medicaid [id number] Self [id number] [facility] - Commercial [id number] Self [id number] [facility] -bh [id number] 18 [id number] [facility] - Commercial [id number] Self [id number] [facility] Community Plan Medicaid [id number] Self [id number] [facility] Community Plan Medicaid [id number] Self [id number] [facility] - Commercial [id number] Self [id number] [facility] Community Plan Medicaid [id number] Self [id number] [facility] Community Plan Medicaid [id number] Self [id number] [facility] Community Plan Medicaid [id number] Self [id number] UNHC AMERICHOICE XIX -HMO [id number] 18 [id number] [facility] [id number] Self [id number] [facility] Community Plan Medicaid [id number] Self [id number] [facility] Community Plan Medicaid Self [facility] [id number] 18 [id number] Managed Care - Community Plan [facility] P [id number] S [id number] Managed Care - Community Plan [facility] P [id number] S [id number] Medicaid S [id number] S [id number] [facility] PLAN [id number] SP [id number] D Managed Care [facility] O [id number] S [id number] Managed Care [facility] S [id number] S [id number] Medicaid Dental O [id number] S [id number] Medicaid Dental S [id number] S [id number] D [facility] O [id number] S [id number] UNHC XIX HMO-PHY [id number] 18 [id number] [facility] [id number] 18 [id number] MEDICAID-PHYSICIAN [id number] 18 B [id number] MEDICAID - CLINIC [id number] BY [id number] Problems, Conditions, and Diagnoses Code Display Name Description Problem Type Effective Dates Data Source(s) 915720642 Electrocardiogram abnormal Electrocardiogram abnormal Problem 02/03/2020 12:00:00 AM EDT [facility] ([facility]) [id number] Dietary management surveillance Dietary manageme nt surveillance Problem 02/03/2020 12:00:00 AM EDT [facility] ([facility] [id number] Morbid obesity Morbid obesity Problem 02/03/2020 12:00: 00 AM EDT [facility] ([facility]) [id number] Heart murmur Heart murmur Problem 02/03/2020 12:00:00 A M EDT [facility] ([facility]) M130 Polyarthritis, unspecified Polyarthritis, unspecified Diagnosis 08/24/2020 12:53:00 PM [facility] R011 Cardiac murmur, unspecified Cardiac murmur, unspecifie d Diagnosis 08/24/2020 12:53:00 PM [facility] K5900 Constipation, unspecified Constipation, unspecified Di agnosis 08/24/2020 12:53:00 PM [facility] E559 Vitamin D deficiency, unspecified Vitamin D defi ciency, unspecified Diagnosis 08/24/2020 12:53:00 PM [facility] K219 Gastro-esophageal reflux disease without esophagitis Gastro-esophageal reflux disease without esophagitis Diagnosis 08/24/2020 12:53:00 PM [facility] [id number] Invalid ICD10 Description Invalid ICD10 Description Di agnosis 08/19/2020 09:41:00 AM [facility] Z712 Person consulting for explanation of exa mination or test findings Person consulting for explanation of examination or test findings Diagnosis 07/13/2020 01:34:00 PM [facility] R109 Unspecified abdominal pain Unspecified abdominal pain Diagnosis 07/13/2020 01:34:00 PM [facility] Z114 Encounter for screening for human immuno deficiency virus [HIV] Encounter for screening for human immunodeficiency virus [HIV] Diagnosis 1 08/15/2019 02:49:00 PM [facility] Z113 Encounter for screening for infections with a predominantly sexual mode of transmission Encounter for screening for infections w ith a predominantly sexual mode of transmission Diagnosis 06/15/2020 02:49:00 PM [facility] E669 Obesity, unspecified Obesity, unspecified Diagnosis 03/17/2020 02:50:00 PM EDT [facility] I361 Nonrheumatic tricuspid (valve) insuffici ency Nonrheumatic tricuspid (valve) insufficiency Diagnosis 03/17/2020 02:50:00 PM EDT [facility] G4733 Obstructive sleep apnea (adult) (pediatr ic) Obstructive sleep apnea (adult) (pediatric) Diagnosis 03/17/2020 02:50:00 PM EDT [facility] R079 Chest pain, unspecified Chest pain, unspecified Diagno sis 03/17/2020 02:50:00 PM EDT [facility] Z717 Human immunodeficiency virus [HIV] sharmin hart Human immunodeficiency virus [HIV] counseling Diagnosis 02/25/2020 01:58:00 PM EDT [facility] N760 Acute vaginitis Acute vaginitis Diagnosis 01/20/2020 03:0 1:00 PM EDT [facility] L24884 Encounter for gynecological examination (general) (routine) with abnormal findings Encounter for gynecological examination (general) (routine) with abnormal findings Diagnosis 01/20/2020 03:01:00 PM EDT [facility] Z1331 Encounter for screening for depression E ncounter for screening for depression Diagnosis 01/19/2020 10:01:00 AM EDT [facility] M79.673 Pain in unspecified foot Pain in unspecified foot Diag nosis 10/06/2019 12:43:45 PM [facility] M21.42 Flat foot [pes planus] (acquired), left foot Flat foot (pes planus) (acquired), left foot Diagnosis 10/06/2019 12:43:45 PM [facility] M21.41 Flat foot [pes planus] (acquired), right foot Flat foot (pes planus) (acquired), right foot Diagnosis 10/06/2019 12:43:45 PM [facility] Z7721 Contact with and (suspected) exposure to potentially hazardous body fluids Contact with and (suspected) exposure to potentially h azardous body fluids Diagnosis 08/19/2019 02:29:00 PM [facility] C62377 Nicotine dependence, cigarettes, uncompl icated Nicotine dependence, cigarettes, uncomplicated Diagnosis 07/20/2019 10:53:00 AM [facility] M2140 Flat foot [pes planus] (acquired), unspe cified foot Flat foot [pes planus] (acquired), unspecified foot Diagnosis 07/20/2019 10:53:00 AM [facility] F339 Major depressive disorder, recurrent, un specified Major depressive disorder, recurrent, unspecified Diagnosis 07/20/2019 10:53:00 AM [facility] Surgeries/Procedures Procedure Description Date Indications Data Source(s) Physical Therapy Eval - Low Complexity 05/24/2020 12:0 0:00 AM EDT MEDENT ([facility]) RADEX SPINE CRV COMPL W/OBLQ&FLEX&/XTN STDS 05/05/2020 12:00:00 AM EDT [facility] ([facility]) ECHO TTHRC R-T 2D W/WOM-MODE COMPL SPEC&COLR DOP 03/01 12:00:00 AM EDT [facility] ([facility]) ECG ROUTINE ECG W/LEAST 12 LDS W/I&R 02/03/2020 12:00: 00 AM EDT [facility]ENT ([facility]) Brief Emotional/Behav Assessment W/ Scoring Doc Per Standard Inst 01/19/2020 12:00:00 AM EDT [facility] ([facility]) EKG- ALL NON MCR/TRI PAYERS 08/09/2019 12:00:00 AM EST eCW1 ([facility]) URINE-NO MICRO 08/09/2019 12:00:00 AM EST eCW1 ([facility]) Ondansetron, oral, 4 mg (for circumstanc es falling under the medicare statute, use hcpcs q code) 08/09/2019 12:00:00 AM EST eCW 1 ([facility]) Results ID Date Data Source [id number] 09/07/2020 12:00:00 PM EST [facility] Name Value Range Interpretation Code Description Data Jordana rce(s) Supporting Document(s) SARS coronavirus 2 RNA Not Detected [facility] [place] This lab was ordered by [facility] and reported by [facility]. ID Date Data Source [id number] 08/19/2020 09:50:00 AM EST [facility] Name Value Range Interpretation Code Description Data Jordana rce(s) Supporting Document(s) SARS coronavirus 2 RNA Not Detected [facility] [place] This lab was ordered by [facility] johnathan and reported by [facility]. ID Date Data Source [id number] 08/22/2020 06:59:00 AM EST [facility] Name Value Range Interpretation Code Description Data Jordana rce(s) Supporting Document(s) SARS-CoV-2, GERMAN Not Detected Not Detected [facility] Testing was performed using the selina(R) SARS-CoV-2 test.This nucleic acid amplification test was developed and its performancecharacteristics determined by [facility]. Nucleic acidamplification tests include PCR and TMA. This test has not been FDAcleared or approved. This test has been authorized by FDA under anEmergency Use Authorization (EUA). This test is only authorized forthe duration of time the declaration that circumstances existjustifying the authorization of the emergency use of in vitrodiagnostic tests for detection of SARS-CoV-2 virus and/or diagnosisof COVID-19 infection under section 564(b)(1) of the Act, 21 U.S.C.360bbb-3(b) (1), unless the authorization is terminated or revokedsooner.When diagnostic testing is negative, the possibility of a falsenegative result should be considered in the context of a patient'srecent exposures and the presence of clinical signs and symptomsconsistent with COVID- 19. An individual without symptoms of COVID-19and who is not shedding SARS-CoV-2 virus would expect to have anegative (not detected) result in this assay. ORDER COVID 19 2 DAY YES [facility] ID Date Data Source [id number] 08/19/2020 09:50:00 AM EST MEDENT ([facility]) Name Value Range Interpretation Code Description Data Jordana rce(s) Supporting Document(s) Laboratory test finding (navigational concept) Laboratory test result MEDENT ([facility]) ID Date Data Source [id number] 06/15/2020 04:10:00 PM EST [facility] ([facility]) Name Value Range Interpretation Code Description Data Jordana rce(s) Supporting Document(s) HSV 2 IgG, Type Spec Laboratory test result 0.00-0.90 [facility] ([facility]) .~.~<DG1.3.1>Z11.3</DG1.3.1><DG1.3.1>Z11.3</DG1.3.1><DG1.3.1>Z11.3</DG1.3.1><DG1 .3.1 ID Date Data Source [id number] 06/15/2020 04:10:00 PM EST [facility] ([facility]) Name Value Range Interpretation Code Description Data Jordana rce(s) Supporting Document(s) HIV Screen 4thGeneration wRfx Laboratory test result MEDENT ([facility]) .~.~<DG1.3.1>Z11.3</DG1.3.1><DG1.3.1>Z11.3</DG1.3.1><DG1.3.1>Z11.3</DG1.3.1><DG1 .3.1 ID Date Data Source [id number] 06/15/2020 04:10:00 PM EST [facility] ([facility]) Name Value Range Interpretation Code Description Data Jordana rce(s) Supporting Document(s) Treponema pallidum Ab [Presence] in Serum Laboratory test result MEDENT ([facility]) .~.~<DG1.3.1>Z11.3</DG1.3.1><DG1.3.1>Z11.3</DG1.3.1><DG1.3.1>Z11.3</DG1.3.1><DG1 .3.1 Laboratory test finding (navigational concept) Laboratory test resu lt 0.0-0.9 [facility] ([facility]) .~.~<DG1.3.1>Z11.3</DG1.3.1><DG1.3.1>Z11.3</DG1.3.1><DG1.3.1>Z11.3</DG1.3.1><DG1 .3.1 ID Date Data Source [id number] 06/17/2020 11:42:00 AM EST [facility] Name Value Range Interpretation Code Description Data Jordana rce(s) Supporting Document(s) Herpes simplex virus 2 IgG Ab [Units/volume] in Serum by Immunoassay <0.91 index 0.00-0.90 [facility] Negative <0.91 Equivocal 0.91 - 1.09 Positive >1.09 Note: Negative indicates no antibodies detected to HSV-2. Equivocal may suggest early infection. If clinically appropriate, retest at later date. Positive indicates antibodies detected to HSV-2. ID Date Data Source [id number] 06/17/2020 11:41:00 AM EST [facility] Name Value Range Interpretation Code Description Data Jordana rce(s) Supporting Document(s) HIV 1+2 Ab+HIV1 p24 Ag [Presence] in Serum or Plasma b y Immunoassay Non Reactive Non Reactive [facility] ID Date Data Source [id number] 06/17/2020 11:41:00 AM EST [facility] Name Value Range Interpretation Code Description Data Jordana rce(s) Supporting Document(s) Hepatitis C virus Ab Signal/Cutoff in Serum or Plasma by Immunoassay <0.1 s/coratio 0.0-0.9 [facility] ID Date Data Source [id number] 06/15/2020 05:08:00 PM [facility] Name Value Range Interpretation Code Description Data Jordana rce(s) Supporting Document(s) Treponema pallidum Ab [Presence] in Serum NON-REACTIVE NORMAL:NON MARIETTA CTIVE [facility] ID Date Data Source [id number] 06/15/2020 03:40:00 PM EST [facility] ([facility]) Name Value Range Interpretation Code Description Data Jordana rce(s) Supporting Document(s) Source: Laboratory test result MEDENT ([facility]) {SOURCE: Genital Chlamydia by German Laboratory test result MEDENT ([facility]) {SOURCE: Genital Gonococcus by [employer] Laboratory test result MED[facility] ([facility]) {SOURCE: Genital Trich vag by [employer] Laboratory test result [facility] ([facility]) {SOURCE: Genital ID Date Data Source [id number] 06/15/2020 03:40:00 PM EST [facility] ([facility]) Name Value Range Interpretation Code Description Data Jordana rce(s) Supporting Document(s) Source: Laboratory test result MEDENT ([facility]) {SOURCE: Genital Margaret species Laboratory test result MEDENT ([facility]) {SOURCE: Genital Gardnerella vaginalis Laboratory test result Abn ormal (applies to non-numeric results) MED[facility] ([facility]) {SOURCE: Genital Trichomonas vaginalis Laboratory test result MEDENT ([facility]) {SOURCE: Genital ID Date Data Source [id number] 06/15/2020 03:40:00 PM EST [facility] ([facility]) Name Value Range Interpretation Code Description Data Jordana rce(s) Supporting Document(s) Z#Other Observations Laboratory test result MEDENT ([facility]) ID Date Data Source [id number] 06/19/2020 03:21:00 PM [facility] Name Value Range Interpretation Code Description Data Jordana rce(s) Supporting Document(s) SOURCE: Genital [facility] Chlamydia trachomatis rRNA [Presence] in Unspecified specimen by Probe and target amplification method Negative Negative [facility] Neisseria gonorrhoeae rRNA [Presence] in Unspecified specimen by Probe and target amplification method Negative Negative [facility] Trichomonas vaginalis DNA [Presence] in Unspecified specimen by Probe and target amplification method Negative Negative [facility] ID Date Data Source [id number] 06/17/2020 04:58:00 PM [facility] Name Value Range Interpretation Code Description Data Jordana rce(s) Supporting Document(s) [facility] [Presence] in Vaginal fluid by DNA probe Negative N egative [facility] Gardnerella vaginalis rRNA [Presence] in Genital specimen by DNA probe Positive Negative A [facility] Trichomonas vaginalis rRNA [Presence] in Genital specimen by DNA probe Negative Negative [facility] ID Date Data Source [id number] 01/21/2020 09:06:00 AM EDT MEDENT ([facility]) Name Value Range Interpretation Code Description Data Jordana rce(s) Supporting Document(s) HIV Screen 4thGeneration wRfx Laboratory test result MEDENT ([facility]) .~.~<DG1.3.1>Z11.3</DG1.3.1><DG1.3.1>Z11.3</DG1.3.1><DG1.3.1>Z11.3</DG1.3.1><DG1 .3.1 ID Date Data Source [id number] 01/21/2020 09:06:00 AM EDT MED[facility] ([facility]) Name Value Range Interpretation Code Description Data Jordana rce(s) Supporting Document(s) HSV, IgM I/II Combination Laboratory test result 0.00-0.90 [facility] ([facility]) .~.~<DG1.3.1>Z11.3</DG1.3.1><DG1.3.1>Z11.3</DG1.3.1><DG1.3.1>Z11.3</DG1.3.1><DG1 .3.1 ID Date Data Source [id number] 01/21/2020 09:06:00 AM EDT MED[facility] ([facility]) Name Value Range Interpretation Code Description Data Jordana rce(s) Supporting Document(s) HSV 1 IgG, Type Spec 56.50 index 0.00-0.90 Above high normal MED[facility] ([facility]) .~.~<DG1.3.1>Z11.3</DG1.3.1><DG1.3.1>Z11.3</DG1.3.1><DG1.3.1>Z11.3</DG1.3.1><DG1 .3.1 HSV 2 IgG, Type Spec Laboratory test result 0.00-0.90 [facility] ([facility]) .~.~<DG1.3.1>Z11.3</DG1.3.1><DG1.3.1>Z11.3</DG1.3.1><DG1.3.1>Z11.3</DG1.3.1><DG1 .3.1 ID Date Data Source [id number] 01/21/2020 09:06:00 AM EDT MED[facility] ([facility]) Name Value Range Interpretation Code Description Data Jordana rce(s) Supporting Document(s) Treponema pallidum Ab [Presence] in Serum Laboratory test result [facility] ([facility]) .~.~<DG1.3.1>Z11.3</DG1.3.1><DG1.3.1>Z11.3</DG1.3.1><DG1.3.1>Z11.3</DG1.3.1><DG1 .3.1 Laboratory test finding (navigational concept) Laboratory test resu lt 0.0-0.9 [facility] ([facility]) .~.~<DG1.3.1>Z11.3</DG1.3.1><DG1.3.1>Z11.3</DG1.3.1><DG1.3.1>Z11.3</DG1.3.1><DG1 .3.1 ID Date Data Source [id number] 01/23/2020 06:08:00 AM EDT [facility] Name Value Range Interpretation Code Description Data Jordana rce(s) Supporting Document(s) Herpes simplex virus 1+2 IgM Ab [Units/volume] in Seru m by Immunoassay <0.91 Ratio 0.00-0.90 [facility] Negative <0.91 Equivocal 0.91 - 1.09 Positive >1.09 ID Date Data Source [id number] 01/22/2020 07:15:00 AM EDT [facility] Value Range Interpretation Code Description Data Jordana rce(s) Supporting Document(s) Herpes simplex virus 1 IgG Ab [Units/volume] in Serum by Immunoassay 56.50 index 0.00-0.90 H [facility] Negative <0.91 Equivocal 0.91 - 1.09 Positive >1.09 Note: Negative indicates no antibodies detected to HSV-1. Equivocal may suggest early infection. If clinically appropriate, retest at later date. Positive indicates antibodies detected to HSV-1. Herpes simplex virus 2 IgG Ab [Units/volume] in Serum by Immunoassay <0.91 index 0.00-0.90 [facility] Negative <0.91 Equivocal 0.91 - 1.09 Positive >1.09 Note: Negative indicates no antibodies detected to HSV-2. Equivocal may suggest early infection. If clinically appropriate, retest at later date. Positive indicates antibodies detected to HSV-2. ID Date Data Source [id number] 01/22/2020 07:15:00 AM EDT [facility] Name Value Range Interpretation Code Description Data Jordana rce(s) Supporting Document(s) HIV 1+2 Ab+HIV1 p24 Ag [Presence] in Serum or Plasma b y Immunoassay Non Reactive Non Reactive [facility] ID Date Data Source [id number] 01/22/2020 07:12:00 AM EDT [facility] Name Value Range Interpretation Code Description Data Jordana rce(s) Supporting Document(s) Hepatitis C virus Ab Signal/Cutoff in Serum or Plasma by Immunoassay <0.1 s/coratio 0.0-0.9 [facility] ID Date Data Source [id number] 01/21/2020 12:54:00 PM EDT [facility] Name Value Range Interpretation Code Description Data Jordana rce(s) Supporting Document(s) Treponema pallidum Ab [Presence] in Serum NON-REACTIVE NORMAL:NON [place] CTIVE [facility] ID Date Data Source [id number] 01/20/2020 04:43:00 PM EDT [facility] ([facility]) Name Value Range Interpretation Code Description Data Jordana rce(s) Supporting Document(s) Mammo Screening Bilateral with CAD Laboratory test result [facility] ([facility]) ID Date Data Source [id number] 01/20/2020 04:40:00 PM EDT [facility] ([facility]) Name Value Range Interpretation Code Description Data Jordana rce(s) Supporting Document(s) Inhouse Wet Mount Laboratory test result [facility] ([facility]) ID Date Data Source [id number] 01/20/2020 04:40:00 PM EDT [facility] ([facility]) Name Value Range Interpretation Code Description Data Jordana rce(s) Supporting Document(s) Source: Laboratory test result [facility] ([facility]) {SOURCE: Genital~VAGINAL Chlamydia trachomatis,[place] Laboratory test result [facility] ([facility]) {SOURCE: Genital~VAGINAL Neisseria gonorrhoeae,[place] Laboratory test result [facility] ([facility]) {SOURCE: Genital~VAGINAL ID Date Data Source [id number] 01/24/2020 08:31:00 AM EDT [facility] Name Value Range Interpretation Code Description Data Jordana rce(s) Supporting Document(s) SOURCE: Genital [facility] Chlamydia trachomatis rRNA [Presence] in Unspecified specimen by Probe and target amplification method Negative Negative [facility] Neisseria gonorrhoeae rRNA [Presence] in Unspecified specimen by Probe and target amplification method Negative Negative [facility] ID Date Data Source [id number] 01/20/2020 01:17:00 PM EDT [facility] ([facility]) Name Value Range Interpretation Code Description Data Jordana rce(s) Supporting Document(s) Folate [Mass/volume] in Serum or Plasma 16.3 ng/mL 4.4-31.0 [facility] ([facility]) Is patient fasting? N Thyrotropin [Units/volume] in Serum or Plasma 0.90 uIU/mL 0.47-5.01 [facility] ([facility]) Is patient fasting? N ID Date Data Source [id number] 01/20/2020 01:17:00 PM EDT [facility] ([facility]) Name Value Range Interpretation Code Description Data Jordana rce(s) Supporting Document(s) HGB A1c 5.0 % 4.4-6.1 [facility] ([facility]) Is patient fasting? N ID Date Data Source [id number] 01/20/2020 01:17:00 PM EDT [facility] ([facility]) Name Value Range Interpretation Code Description Data Jordana rce(s) Supporting Document(s) Cve Panel Laboratory test result [facility] ([facility]) Is patient fasting? N Triglycerides 53 mg/dL 35-160 [facility] ([facility]) Is patient fasting? N Cholesterol 181 mg/dL 131-200 [facility] ([facility]) Is patient fasting? N HDL 59 mg/dL 29-86 [facility] ([facility]) Is patient fasting? N LDL 111 mg/dL 65-175 [facility] ([facility]) Is patient fasting? N Risk Factor 3.1 3.2-4.4 Below low normal [facility] ([facility]) Is patient fasting? N LDL/HDL 1.88 1.47-3.22 [facility] ([facility]) Is patient fasting? N ID Date Data Source [id number] 01/20/2020 01:17:00 PM EDT [facility] ([facility]) Name Value Range Interpretation Code Description Data Jordana rce(s) Supporting Document(s) Calcidiol [Mass/volume] in Serum or Plasma 31 ng/mL [facility] ([facility]) Is patient fasting? N Cobalamin (Vitamin B12) [Mass/volume] in Serum or Plasma 413 pg/mL 2 32-1245 [facility] ([facility]) Is patient fasting? N Thyroxine (T4) free [Mass/volume] in Serum or Plasma 1.02 ng/dL 0.93- 1.70 [facility] ([facility]) Is patient fasting? N ID Date Data Source [id number] 01/20/2020 01:17:00 PM EDT [facility] ([facility]) Name Value Range Interpretation Code Description Data Jordana rce(s) Supporting Document(s) CBC W/Automated Diff Laboratory test result [facility] ([facility]) Is patient fasting? N WBC 8.2 10^3/uL 4.2-11.0 [facility] ([facility]) Is patient fasting? N RBC 4.44 10^6/uL 4.20-5.40 [facility] ([facility]) Is patient fasting? N Hemoglobin 12.6 g/dL 12.0-16.0 [facility] ([facility]) Is patient fasting? N Hematocrit 39.8 % 37.0-47.0 [facility] ([facility]) Is patient fasting? N MCV 89.6 fL 81.0-101 [facility] ([facility]) Is patient fasting? N MCHC 31.7 g/dL 31.0-36.0 [facility] ([facility]) Is patient fasting? N MCH 28.4 pg 27.0-34.0 [facility] ([facility]) Is patient fasting? N Platelets 276 10^3/uL 150-450 [facility] ([facility]) Is patient fasting? N RDW 13.2 % 11.5-14.5 [facility] ([facility]) Is patient fasting? N MPV 12.5 fL 7.4-10.4 Above high normal [facility] ([facility]) Is patient fasting? N Neut 69.4 % 37.0-80.0 [facility] ([facility]) Is patient fasting? N Lymph 22.6 % 25.0-40.0 Below low normal [facility] ( [facility]) Is patient fasting? N Eos 0.9 % 0.0-7.0 [facility] ([facility]) Is patient fasting? N [place] 6.4 % 3.0-8.0 [facility] ([facility]) Is patient fasting? N Baso 0.5 % 0.0-2.5 [facility] ([facility]) Is patient fasting? N %Ig 0.2 % 0.0-0.0 Above high normal [facility] ([facility]) Is patient fasting? N #Neut 5.66 10^3/uL 2.00-6.90 [facility] ([facility]) Is patient fasting? N %NRBC 0.0 % 0.0-0.0 [facility] ([facility]) Is patient fasting? N #Lymph 1.84 10^3/uL 0.60-3.40 [facility] ([facility]) Is patient fasting? N #[place] 0.52 10^3/uL 0.00-0.90 [facility] ([facility]) Is patient fasting? N #Baso 0.04 10^3/uL 0.00-0.20 [facility] ([facility]) Is patient fasting? N #Eos 0.07 10^3/uL 0.00-0.70 [facility] ([facility]) Is patient fasting? N #NRBC 0.00 10^3/uL 0.00-0.00 [facility] ([facility]) Is patient fasting? N #Ig 0.02 10^3/uL 0.00-0.10 [facility] ([facility]) Is patient fasting? N Manual Diff Laboratory test result [facility] ([facility]) Is patient fasting? N RBC Morph Laboratory test result [facility] ([facility]) Is patient fasting? N ID Date Data Source [id number] 01/20/2020 07:09:00 PM EDT [facility] Name Value Range Interpretation Code Description Data Jordana rce(s) Supporting Document(s) Folate [Mass/volume] in Serum or Plasma 16.3 NG/ML 4.4 - 31.0 [facility] ID Date Data Source [id number] 01/20/2020 07:09:00 PM EDT [facility] Name Value Range Interpretation Code Description Data Jordana rce(s) Supporting Document(s) Thyrotropin [Units/volume] in Serum or Plasma by Detec tion limit <= 0.05 mIU/L 0.90 uIU/mL 0.47 - 5.01 [facility] ID Date Data Source [id number] 01/20/2020 07:09:00 PM EDT [facility] Name Value Range Interpretation Code Description Data Jordana rce(s) Supporting Document(s) Thyroxine (T4) free index in Serum or Plasma by calculation 1.02 NG/DL 0.93 - 1.70 [facility] ID Date Data Source [id number] 01/20/2020 07:09:00 PM EDT [facility] Value Range Interpretation Code Description Data Jordana rce(s) Supporting Document(s) Cobalamin (Vitamin B12) [Mass/volume] in Serum or Plasma 413 PG/ML 232 - 1245 [facility] ID Date Data Source [id number] 01/20/2020 07:09:00 PM T [facility] Value Range Interpretation Code Description Data Jordana rce(s) Supporting Document(s) Calcidiol [Moles/volume] in Serum or Plasma 31 NG/ML [facility] VITAMIN-D(2 5HYDROXY) Deficiency: <=20 ng/ml Insufficiency: 21-29 ng/ml Preferred level: => 30 ng/ml ID Date Data Source [id number] 01/20/2020 06:44:00 PM T [facility] Value Range Interpretation Code Description Data Jordana rce(s) Supporting Document(s) [facility] Cholesterol [Mass/volume] in Serum or Plasma 181 MG/DL 131 - 200 [facility] Deprecated Triglyceride [Mass/volume] in Serum or Plasma 53 MG/DL 3 5 - 160 [facility] HDL 59 MG/DL 29 - 86 [facility] Cholesterol in LDL [Mass/volume] in Serum or Plasma by Direc t assay 111 mg/dL 65 - 175 [facility] Cholesterol.total/Cholesterol in HDL [Mass Ratio] in Serum o r Plasma 3.1 3.2 - 4.4 L [facility] LDL/HDL 1.88 1.47 - 3.22 [facility] CVE RISK CHOL/HDL LDL/HDLMEN: 1/2 AVERAGE 3.43 1.00 AVERAGE 4.97 3.55 2X AVERAGE 9.55 6.25 3X AVERAGE 23.99 7.99WOMEN: 1/2 AVERAGE 3.27 1.47 AVERAGE 4.44 3.22 2X AVERAGE 7.05 5.03 3X AVERAGE 11.04 6.14 ID Date Data Source [id number] 01/20/2020 06:40:00 PM EDT [facility] Name Value Range Interpretation Code Description Data Jordana rce(s) Supporting Document(s) Hemoglobin A1c/Hemoglobin.total in Blood 5.0 % 4.4 - 6.1 [facility] {A1]{HB] ID Date Data Source [id number] 01/20/2020 06:29:00 PM EDT [facility] Name Value Range Interpretation Code Description Data Jordana rce(s) Supporting Document(s) CBC W/AUTOMATED DIFF [facility] COMPLETE BLOOD COUNT Leukocytes [#/volume] in Blood by Automated count 8.2 10^3/uL 4.2 - 1 1.0 [facility] Erythrocytes [#/volume] in Blood by Automated count 4.44 10^6/uL 4. 20 - 5.40 [facility] Hemoglobin [Mass/volume] in Blood 12.6 g/dL 12.0 - 16.0 [facility] Hematocrit [Volume Fraction] of Blood by Automated count 39.8 % 3 7.0 - 47.0 [facility] Erythrocyte mean corpuscular volume [Entitic volume] by Auto mated count 89.6 fL 81.0 - 101 [facility] Erythrocyte mean corpuscular hemoglobin [Entitic mass] by Automated count 28.4 pg 27.0 - 34.0 [facility] Erythrocyte mean corpuscular hemoglobin concentration [Mass/volume] by Automated count 31.7 g/dL 31.0 - 36.0 [facility] Erythrocyte distribution width [Ratio] by Automated count 13.2 % 11.5 - 14.5 [facility] Platelets [#/volume] in Blood by Automated count 276 10^3/uL 150 - 45 0 [facility] Platelet mean volume [Entitic volume] in Blood by Automated count 12.5 fL 7.4 - 10.4 H [facility] Neutrophils/100 leukocytes in Blood by Automated count 69.4 % 37. 0 - 80.0 [facility] Lymphocytes/100 leukocytes in Blood by Manual count 22.6 % 25.0 - 40.0 L [facility] Monocytes/100 leukocytes in Blood by Automated count 6.4 % 3.0 - 8.0 [facility] Eosinophils/100 leukocytes in Blood by Automated count 0.9 % 0.0 - 7.0 [facility] Basophils/100 leukocytes in Blood by Automated count 0.5 % 0.0 - 2.5 [facility] %IG 0.2 % 0.0 - 0.0 H [facility] %NRBC 0.0 % 0.0 - 0.0 [facility] Neutrophils [#/volume] in Blood by Automated count 5.66 10^3/uL 2.00 - 6.90 [facility] Lymphocytes [#/volume] in Blood by Automated count 1.84 10^3/uL 0.60 - 3.40 [facility] Monocytes [#/volume] in Blood by Automated count 0.52 10^3/uL 0.00 - 0.90 [facility] Eosinophils [#/volume] in Blood by Automated count 0.07 10^3/uL 0.00 - 0.70 [facility] Basophils [#/volume] in Blood by Automated count 0.04 10^3/uL 0.00 - 0.20 [facility] #IG 0.02 10^3/uL 0.00 - 0.10 [facility] #NRBC 0.00 10^3/uL 0.00 - 0.00 [facility] MANUAL DIFF NOT INDICATED [facility] RBC MORPH NOT INDICATED [facility] ID Date Data Source [id number] 01/20/2020 08:28:00 AM EDT [facility] Name Value Range Interpretation Code Description Data Jordana rce(s) Supporting Document(s) Hemoglobin A1c/Hemoglobin.total in Blood 5.0 4.4-6.1 [facility] ([facility]) Thyroid Stimulating Hormone 0.90 0.47-5.01 [facility] ([facility]) Free T4 1.02 0.93-1.70 [facility] ID Date Data Source [id number] 01/20/2020 08:07:00 AM EDT [facility] ([facility]) Name Value Range Interpretation Code Description Data Jordana rce(s) Supporting Document(s) Hemoglobin A1c/Hemoglobin.total in Blood 5.0 [facility] ([facility]) ID Date Data Source [id number] 01/20/2020 08:07:00 AM EDT [facility] ([facility]) Name Value Range Interpretation Code Description Data Jordana rce(s) Supporting Document(s) Cholesterol 181 [facility] ([facility]) Triglycerides 53 [facility] ([facility] HDL 59 [facility] Chol/HDL Ratio Laboratory test result [facility] ([facility]) Cholesterol in LDL [Mass/volume] in Serum or Plasma by calculation 11 1 [facility] ([facility]) ID Date Data Source [id number] 01/20/2020 08:07:00 AM EDT [facility] Name Value Range Interpretation Code Description Data Jordana rce(s) Supporting Document(s) Hemoglobin 12.6 [facility] ([facility]) White Blood Count 8.2 4.2-11.0 [facility] ([facility] Red Blood Count 4.44 4.20-5.40 [facility] ([facility]) Platelets 276 150-450 [facility] Hematocrit 39.8 [facility] ([facility]) ID Date Data Source [id number] 11/10/2019 02:17:00 PM EDT [facility] ([facility]) Name Value Range Interpretation Code Description Data Jordana rce(s) Supporting Document(s) Inhouse Wet Mount Laboratory test result [facility] ([facility]) ID Date Data Source [id number] 10/06/2019 02:03:36 PM [facility] Name Value Range Interpretation Code Description Data Jordana rce(s) Supporting Document(s) Progress Note [facility] NWJHTb0xElQHZzYa58/DUJaySMSud1BhYYfpTPk3RAtoYVKxU9MnYDM2nO1zMSL9GSvMRtCeLnQhOwM8 lbm [file] AgICAgICAgICAgICAgICAgICAgICAgICAgICAgICAgICAgICAgICAgICAgICAgICAgICAgICAgICAgIC AgICAgICAgICAgICAgICAgICAgICAgICAgICANCiAgICAgICAgICAgICAgICAgICAgICAgICAgICAgIC AgICAgICAgICAgICAgICAgICAgICAgICAgICAgICAg ICAgICAgICAgICAgICAgICAgICAgICAgICAgICAgICAgICAgICANCiAgICAgICAgICAgICAgICAgICAg ICAgICAgICAgICAgICAgICAgICAgICAgICAgICAgICAgICAgICAgICAgICAgICAgICAgICAgICAgICAg ICAgICAgICAgICAgICAgICAgICANCiAgICAgICAgIC AgICAgICAgICAgICAgICAgICAgICAgICAgICAgICAgICAgICAgICAgICAgICAgICAgICAgICAgICAgIC AgICAgICAgICAgICAgICAgICAgICAgICAgICAgICANCiAgICAgICAgICAgICAgICAgICAgICAgICAgIC AgICAgICAgICAgICAgICAgICAgICAgICAgICAgICAg ICAgICAgICAgICAgICAgICAgICAgICAgICAgICAgICAgICAgICAgICANCiAgICAgICAgICAgICAgICAg ICAgICAgICAgICAgICAgICAgICAgICAgICAgICAgICAgICAgICAgICAgICAgICAgICAgICAgICAgICAg ICAgICAgICAgICAgICAgICAgICAgICANCiAgICAgIC AgICAgICAgICAgICAgICAgICAgICAgICAgICAgICAgICAgICAgICAgICAgICAgICAgICAgICAgICAgIC AgICAgICAgICAgICAgICAgICAgICAgICAgICAgICAgICANCiAgICAgICAgICAgICAgICAgICAgICAgIC AgICAgICAgICAgICAgICAgICAgICAgICAgICAgICAg ICAgICAgICAgICAgICAgICAgICAgICAgICAgICAgICAgICAgICAgICAgICANCiAgICAgICAgICAgICAg ICAgICAgICAgICAgICAgICAgICAgICAgICAgICAgICAgICAgICAgICAgICAgICAgICAgICAgICAgICAg ICAgICAgICAgICAgICAgICAgICAgICAgICANCiAgIC AgICAgICAgICAgICAgICAgICAgICAgICAgICAgICAgICAgICAgICAgICAgICAgICAgICAgICAgICAgIC AgICAgICAgICAgICAgICAgICAgICAgICAgICAgICAgICAgICANCjw/qXEyC1uqeGMaigZ5Q3gcHa2BDo 7AVX3ql2HgMCWvRGwjdlNfYvkVVvMvNOSuYcfRNsp8 EAftMT7IpZSyG8WfS1OjFSlnRF5WDFYvXUHkjFFzCSAlGIPiIyU1DEVdZKsiNY1VhRQsDAplXOOtMKXl VqFbJFHdIB1UAAYaP235sfKdIk1ANr4LZpLmPG6idb0AIpGlLOFpHrhDXah4EYijQU0HiHZkxZIoQTZa TKBJYaWyF8pui2WlIcSbEQXJFPtwKL7Ee5XfiIGdVB o+Os5FET7rr8QsOSvyYSKoNS7vqb4MTAlXVuXiJ8VjoYpeLAHsk9jrBHUyVU3tkMWvBJG1GGKetmexfA KZHURrsQHiqMgenKnnTLRyUGDeQi6lND4uIAEnBWQrQpOdQWBYAB8UTQKbWNEqgLLaRDOcZWNZMT5ZUG gcANU3WMDdgvArzGMfOKhpMM1RLPQvuwBvLhFdYPEK DQo+Az0RZW8wa5AlDAbdWtAaXF7bhk4KYCoFBfXaT5C5tOBaY9R4QPbgZn4LANIsRHQbEbPyGXHGBRef JC4WDM0wevQ2XH3LlPAgGCLoTAOxgPNdNEm0K36flNOlSVagHH6KREE+Regina+Hc1OFPScGIMlFRRtEbEi QETLZnFxL1AiH4VQv7OvL1LnYY08bKdoqtUoIOhsHX 1CQM0pXYJyOSKSEI7MjDAfjK5tffQgYTYaWTWJAbLqF44slUArAMElXTDaOCQrNu9NQGDyR9JnqbYkiP xyhpBbNJFaWJVZJC3JWWrwxjKouMUdyUavJX95iXvxJS0RWp1FVcQrRT8fbi5CtIPwMf3QEXGlKy2NCJ ZyMJXbXEBuVGI6XVKkKgQhCThdNVMlWKQqIZF7LTAx DLMqHY1PLaNrEOQuZuCqPIKoAOLlHLIdaq5SGJXgMQRlZaZaSlXrCMDdTWZfFWbxESEuSHCkITJ4XOHi FMQdKO3FZyYgZSMkSGJ9IXbnVWFbZCObjc3XBKZjDIDrXwo8LVQvLAWyLIWwMUgrNNQtVLN2RmQvZNBz XZMdMF0UBrToLAWtZKL9GTLxPBFcZZAait5QMDWcMV BkWRm5OMBaWKKaBFDrCXenBTObWAR9CUOlUSRxCFHvHM6MHxZfQJKzXZRwEDNxOWVwQATajv3XYERdLQ UtMqDfZVLgTSPcKCCeZSyhUMTsMGF4TKZrISGcTDQbQB5AHdJbQIKsDKm9YYHyPTMnXCLalf5QISGgFC UyYUWyAPVuXFGrWRLpKEviNDMqCQS7YsP2SZNtXUSe IX3FYlKzACLlVBc8MLCdDGPnWYXkuv2GFYUyVQOdRKwuCPMcWHHsYNUtZAiuOGMkQVX8ILYhJSLaNXQf IT9EYjSmSRObOeU8ZCKySYMdUKMeot0ZDTXrYJStLOR9SoLhHVGoPCUkUZpmBAUrUJEiTyIyFQVmGDOb CT6ZXwPrGHRsYvX4LhghHXCpZJSwkh6ONGPsHKYcSa WwGXFnJLMwZASoHFbhIIJrBGEdGJhiTNJhXNHiEJ4GNqWgVJIkNeWcOFJfJQRnDIDrql3EqQJxwZxfko 7ITYaLZo2QzUhgRQW0CBrrRn0pgAYvQiAaISHUKz1RrtWaNKYdCOEIWDmoCPSkCXM6WxCmYfJjYFjfGq RyRBcnDPFmCSD3OXZbPqJrIuRnRqG7ALB0OHTrY4X6 G7LnAIM9WCB9DeH8ZLNqSsBgGHYnKVR+HI2cKSr+Mv7Ge2AuwvC7mwUhAPzlMoP0VC2MHDAZE1XKOn== ID Date Data Source [id number] 08/22/2019 06:10:00 PM [facility] Name Value Range Interpretation Code Description Data Jordana rce(s) Supporting Document(s) HIV 1+2 Ab+HIV1 p24 Ag [Presence] in Serum or Plasma b y Immunoassay Non Reactive Non Reactive [facility] ID Date Data Source [id number] 08/19/2019 05:44:00 PM [facility] Name Value Range Interpretation Code Description Data Jordana rce(s) Supporting Document(s) LAB - SPECIMEN REJECTION [facility] Specimen Integrity/Specimen Recollection The patient sample needs to be resubmitted for the following reason: Test(s) Ordered HEP C AB W/ REFLEX [facility] Rejection Reason No Spec Received [facility] { One or more of the tests you ordered cannot be performed.{ Please recollect, reorder, and resubmit if needed. ID Date Data Source [id number] 08/19/2019 02:17:00 PM EST [facility] ([facility]) Name Value Range Interpretation Code Description Data Jodrana rce(s) Supporting Document(s) HIV Screen 4thGeneration wRfx Laboratory test result [facility] ([facility]) GAVE US 2 LAVS NOT 2 PPT WHITE TOP TUBES . ID Date Data Source [id number] 08/19/2019 02:17:00 PM EST [facility] ([facility]) Name Value Range Interpretation Code Description Data Jordana rce(s) Supporting Document(s) Lab - Specimen Rejec Laboratory test result [facility] ([facility]) GAVE US 2 LAVS NOT 2 PPT WHITE TOP TUBES . Test(s) Ordered Laboratory test result [facility] ([facility]) GAVE US 2 LAVS NOT 2 PPT WHITE TOP TUBES . Rejection Reason Laboratory test result [facility] ([facility]) GAVE US 2 LAVS NOT 2 PPT WHITE TOP TUBES . ID Date Data Source [id number] 07/20/2019 11:41:00 AM EST [facility] ([facility]) Name Value Range Interpretation Code Description Data Jordana rce(s) Supporting Document(s) Lab - Specimen Rejec (SEE NOTE) [facility] ( [facility]) Specimen Integrity/Specimen Recollection The patient sample needs to be resubmitted for the following reason: Rejection Reason No Spec Received [facility] ([facility]) No Spec Received { One or more of the tests you ordered cannot be performed. { Please recollect, reorder, and resubmit if needed. Test(s) Ordered HEP C ANTIBODY W <SEE NOTE> [facility] ([facility]) HEP C ANTIBODY W/ REFL ID Date Data Source [id number] 07/20/2019 11:41:00 AM EST [facility] ([facility]) Name Value Range Interpretation Code Description Data Jordana rce(s) Supporting Document(s) C reactive protein [Mass/volume] in Serum or Plasma by High sensitivity method 0.54 mg/L 1.00-3.00 Below low normal [facility] ([facility]) <content>CDC/S HS-CRP CUT-OFF: RELATIVE RISK:</content>
<content><1.0 mg/L Low</content>
<content>1.0 - 3.0 mg/L Average</saw nt>
<content>>3.0 mg/L High</content>
<content>Optimally, the average of HS-CRP results repeated</content>
<content>two weeks apart should be used for risk assessment.</content>
<content></content> Rheumatoid factor [Units/volume] in Serum or Plasma <10 IU/ml 0-14 [facility] ID Date Data Source [id number] 07/20/2019 11:41:00 AM EST [facility] ([facility]) Name Value Range Interpretation Code Description Data Jordana rce(s) Supporting Document(s) Sed Rate Reenter 17 [facility] ([facility]) Sed Rate 17 mm/hr 0-20 [facility] ([facility]) ID Date Data Source [id number] 07/20/2019 11:41:00 AM EST [facility] ([facility]) Name Value Range Interpretation Code Description Data Jordana rce(s) Supporting Document(s) Sjogren's Anti-SS-A <0.2 AI 0.0-0.9 MED[facility] ([facility]) Sjogren's Anti-SS-B <0.2 AI 0.0-0.9 [facility] ([facility]) APPLICATION SOFTWARE DEVELOPER Antibodies <0.2 AI 0.0-0.9 [facility] ([facility]) Vance Antibodies <0.2 AI 0.0-0.9 [facility] ([facility]) Anti-Dna (DS) Ab Qn 3 IU/ml 0-9 [facility] ([facility]) <content>Negative <5</content>
<content>Equivocal 5 - 9</content>
<content>Positive >9</content>
<content></content> ID Date Data Source [id number] 07/20/2019 11:41:00 AM EST [facility] ([facility]) Name Value Range Interpretation Code Description Data Jordana rce(s) Supporting Document(s) Erythrocyte sedimentation rate by Westergren method <pending> MED[facility] ([facility]) C reactive protein [Mass/volume] in Serum or Plasma by High sensitivity method <pending> MED[facility] ([facility]) Rheumatoid factor [Units/volume] in Serum or Plasma <pending> [facility] ([facility]) ID Date Data Source [id number] 07/20/2019 11:41:00 AM EST [facility] ([facility]) Name Value Range Interpretation Code Description Data Jordana rce(s) Supporting Document(s) Laboratory test finding (navigational concept) <pending> MED[facility] ([facility]) ID Date Data Source [id number] 07/27/2019 06:48:00 AM [facility] Name Value Range Interpretation Code Description Data Jordana rce(s) Supporting Document(s) Sjogrens syndrome-A extractable nuclear Ab [Units/volume] in Serum <0.2 AI 0.0-0.9 [facility] Sjogrens syndrome-B extractable nuclear Ab [Units/volume] in Serum <0.2 AI 0.0-0.9 [facility] Ribonucleoprotein extractable nuclear Ab [Units/volume] in S anusha <0.2 AI 0.0-0.9 [facility] Vance extractable nuclear Ab [Units/volume] in Serum <0.2 AI 0.0-0 .9 [facility] DNA double strand Ab [Units/volume] in Serum 3 IU/mL 0-9 [facility] Negative <5 Equivocal 5 - 9 Positive >9 ID Date Data Source [id number] 07/21/2019 06:08:00 PM [facility] Value Range Interpretation Code Description Data Jordana rce(s) Supporting Document(s) RA QUANT <10 IU/mL 0 - 14 [facility] ID Date Data Source [id number] 07/21/2019 09:52:00 AM [facility] Name Value Range Interpretation Code Description Data Jordana rce(s) Supporting Document(s) C reactive protein [Mass/volume] in Serum or Plasma by High sensitivity method 0.54 MG/L 1.00 - 3.00 L [facility] CDC/S HS-CRP CUT-OFF: RELATIVE RISK: <1.0 mg/L Low 1.0 - 3.0 mg/L Average >3.0 mg/L High Optimally, the average of HS-CRP results repeated two weeks apart should be used for risk assessment. ID Date Data Source [id number] 07/20/2019 03:14:00 PM [facility] Value Range Interpretation Code Description Data Jordana rce(s) Supporting Document(s) LAB - SPECIMEN REJECTION [facility] Specimen Integrity/Specimen Recollection The patient sample needs to be resubmitted for the following reason: Test(s) Ordered HEP C ANTIBODY W/ REFL C [facility] Rejection Reason No Spec Received [facility] { One or more of the tests you ordered cannot be performed.{ Please recollect, reorder, and resubmit if needed. ID Date Data Source [id number] 07/20/2019 03:05:00 PM EST [facility] Name Value Range Interpretation Code Description Data Jordana rce(s) Supporting Document(s) Erythrocyte sedimentation rate by Westergren method 17 mm/hr 0 - 20 [facility] SED RATE REENTER 17 [facility] ID Date Data Source [id number] 07/20/2019 11:00:00 AM EST [facility] ([facility]) Name Value Range Interpretation Code Description Data Jordana rce(s) Supporting Document(s) Test(s) Ordered HIV [facility] ([facility]) Rejection Reason QNS [facility] ([facility]) NEED 1 DEDICATED TUBE FOR HIV { One or more of the tests you ordered cannot be performed. { Please recollect, reorder, and resubmit if needed. Lab - Specimen Rejec (SEE NOTE) [facility] ( [facility]) Specimen Integrity/Specimen Recollection The patient sample needs to be resubmitted for the following reason: ID Date Data Source [id number] 07/21/2019 10:38:00 AM [facility] Name Value Range Interpretation Code Description Data Jordana rce(s) Supporting Document(s) LAB - SPECIMEN REJECTION [facility] Specimen Integrity/Specimen Recollection The patient sample needs to be resubmitted for the following reason: Test(s) Ordered HIV [facility] Rejection Reason NS [facility] NEED 1 DEDICATED TUBE FOR HIV{ One or more of the tests you ordered cannot be performed.{ Please recollect, reorder, and resubmit if needed. ID Date Data Source [id number] 07/15/2019 08:01:[address] [facility] XR ANKLE 2 VIEWS [id number] RESULTInterp reted by:Diomedes Hong MDBILATERAL FOOT AND ANKLECLINICAL STATEMENT:. Pain. Initial encounter.TECHNIQUE: 3 views of the bilateral feet . 2 views of the bilateral ankles.COMPARISON: None.FINDINGS: No acute fracture or dislocation is identified. The ankle mortise is congruent.The joint spaces are preserved and the articular margins are smooth.The visualized soft tissues are within normal limits.IMPRESSION:No acute fracture or dislocation. This document has been electronically signed by Diomedes Hong MD on 07/15/2019 7:58 AM Name Value Range Interpretation Code Description Data Jordana rce(s) Supporting Document(s) ID Date Data Source [id number] 07/15/2019 08:01:06 AM EST [facility] XR FOOT 3 OR MORE VIEWS [id number] RESUL TInterpreted by:Diomedes Hong MDBILATERAL FOOT AND ANKLECLINICAL STATEMENT:. Pain. Initial encounter.TECHNIQUE: 3 views of the bilateral feet . 2 views of the bilateral ankles.COMPARISON: None.FINDINGS: No acute fracture or dislocation is identified. The ankle mortise is congruent.The joint spaces are preserved and the articular margins are smooth.The visualized soft tissues are within normal limits.IMPRESSION:No acute fracture or dislocation. This document has been electronically signed by Diomedes Hong MD on 07/15/2019 7:58 AM Name Value Range Interpretation Code Description Data Jordana rce(s) Supporting Document(s) Procedure Social History Code Duration Value Status Description Data Source(s ) Smoking 05/03/2020 12:00:00 AM EDT Patient is a former smoker completed Patient is a former smoker [facility] ([facility] ) Smoking 03/21/2020 12:00:00 AM EDT Patient is a former smoker completed Patient is a former smoker [facility] ([facility]) Alcohol intake 10/06/2019 12:00:00 AM EST Current drinker of al cohol (finding) completed Current drinker of alcohol (finding) [facility] Cigarette pack-years 10/06/2019 12:00:00 AM EST UNK [facility] Cigarettes smoked current (pack per day) - Reported 10/06/19 12:00:00 AM EST UNK [facility] Smoking 10/06/2019 12:00:00 AM EST Current some day smoker com pleted Current some day smoker [facility] Vital Signs ID Date Data Source UNK Name Value Range Interpretation Code Description Data Source(s) Body surface area Derived from formula 2.33 m2 2.33 m2 [facility] Body mass index (BMI) [Ratio] 51.5 kg/m2 51.5 k g/m2 [facility] ([facility]) Body height 64 [in_i] 64 [in_i] [facility] ([facility]) 5'4" Body weight 136.193 kg 136.193 kg [facility] ([facility]) Body weight 300.25 [lb_av] 300.25 [lb_av] MEDEN T ([facility]) Oxygen saturation in Arterial blood by Pulse oximetry 95 % 95 % [facility] Respiratory rate 18 /min 18 /min [facility] ( [facility]) Body temperature 97.1 [degF] 97.1 [degF] [facility] Heart rate 100 /min 100 /min [facility] Diastolic blood pressure 64 mm[Hg] 64 mm[Hg] [facility] ([facility]) Systolic blood pressure 118 mm[Hg] 118 mm[Hg] M EDENT ([facility]) Oxygen saturation in Arterial blood by Pulse oximetry 98 % 98 % [facility] ([facility]) Body temperature 98.8 [degF] 98.8 [degF] [facility] ([facility]) Heart rate 88 /min 88 /min [facility] ([facility]) Body surface area Derived from formula 2.32 m2 2.32 m2 [facility] ([facility]) Body mass index (BMI) [Ratio] 51.1 kg/m2 51.1 k g/m2 [facility] ([facility]) Body height 64 [in_i] 64 [in_i] [facility] ([facility]) 5'4" Body weight 135.173 kg 135.173 kg [facility] ([facility]) Body weight 298.00 [lb_av] 298.00 [lb_av] MEDEN T ([facility]) Body temperature 96.2 [degF] 96.2 [degF] [facility] ([facility]) Heart rate 88 /min 88 /min [facility] ([facility]) Diastolic blood pressure 89 mm[Hg] 89 mm[Hg] [facility] ([facility]) Systolic blood pressure 125 mm[Hg] 125 mm[Hg] M EDENT ([facility]) Body surface area Derived from formula 2.30 m2 2.30 m2 [facility] ([facility]) Body mass index (BMI) [Ratio] 50.5 kg/m2 50.5 k g/m2 [facility] ([facility]) Body height 64 [in_i] 64 [in_i] [facility] ([facility]) 5'4" Body weight 133.358 kg 133.358 kg [facility] ([facility]) Body weight 294.00 [lb_av] 294.00 [lb_av] MED[facility] T ([facility]) Body temperature 97.8 [degF] 97.8 [degF] [facility] ([facility]) Heart rate 82 /min 82 /min [facility] ([facility]) Diastolic blood pressure 80 mm[Hg] 80 mm[Hg] [facility] ([facility]) Systolic blood pressure 130 mm[Hg] 130 mm[Hg] M [facility] ([facility]) Body mass index (BMI) [Ratio] 48.7 kg/m2 48.7 k g/m2 [facility] ([facility] ) Body weight 290.25 [lb_av] 290.25 [lb_av] MEDEN T ([facility] ) Body height 64.75 [in_i] 64.75 [in_i] [facility] ([facility] ) 5'4.75" Body temperature 97.0 [degF] 97.0 [degF] [facility] ([facility] ) Body mass index (BMI) [Ratio] 50.8 kg/m2 50.8 k g/m2 [facility] ([facility]) Diastolic blood pressure 81 mm[Hg] 81 mm[Hg] [facility] ([facility]) Systolic blood pressure 116 mm[Hg] 116 mm[Hg] M EDENT ([facility]) Respiratory rate 18 /min 18 /min [facility] ( [facility]) Heart rate 86 /min 86 /min [facility] Body height 63.5 [in_i] 63.5 [in_i] [facility] 5'3.50" Body weight 291.38 [lb_av] 291.38 [lb_av] MEDEN T ([facility]) Heart rate 80 /min 80 /min [facility] ([facility] ) Diastolic blood pressure 80 mm[Hg] 80 mm[Hg] [facility] ([facility] ) Systolic blood pressure 110 mm[Hg] 110 mm[Hg] M EDENT ([facility] ) Respiratory rate 16 /min 16 /min [facility] ( [facility] ) Diastolic blood pressure--sitting 72 mm[Hg] 72 mm[Hg] [facility] ([facility]) large cuff, R forearm Systolic blood pressure--sitting 116 mm[Hg] 116 mm[Hg] [facility] ([facility]) large cuff, R forearm Heart rate 65 /min 65 /min [facility] ([facility]) Body mass index (BMI) [Ratio] 48.9 kg/m2 48.9 k g/m2 [facility] ([facility]) Body height 64 [in_i] 64 [in_i] [facility] ([facility]) 5'4" Body weight 285.00 [lb_av] 285.00 [lb_av] MEDEN T ([facility]) Body surface area Derived from formula 2.27 m2 2.27 m2 [facility] ([facility]) Body mass index (BMI) [Ratio] 48.6 kg/m2 48.6 k g/m2 [facility] ([facility]) Body height 64 [in_i] 64 [in_i] [facility] ([facility]) 5'4" Body weight 128.369 kg 128.369 kg [facility] ([facility]) Body weight 283.00 [lb_av] 283.00 [lb_av] MEDEN T ([facility]) Oxygen saturation in Arterial blood by Pulse oximetry 96 % 96 % [facility] ([facility]) Respiratory rate 18 /min 18 /min [facility] ( [facility]) Body temperature 97.6 [degF] 97.6 [degF] [facility] ([facility]) Heart rate 79 /min 79 /min [facility] ([facility]) Diastolic blood pressure 70 mm[Hg] 70 mm[Hg] [facility] ([facility]) Systolic blood pressure 116 mm[Hg] 116 mm[Hg] M EDENT ([facility]) Body height 64 [in_i] 64 [in_i] [facility] ([facility]) 5'4" Body temperature 98.9 [degF] 98.9 [degF] [facility] ([facility]) Body surface area 2.29 m2 2.29 m2 [facility] Body mass index (BMI) [Ratio] 49.6 kg/m2 49.6 k g/m2 [facility] Body height 64 [in_i] 64 [in_i] [facility] ([facility]) 5'4" Body weight 131.090 kg 131.090 kg [facility] ([facility]) Body weight 289.00 [lb_av] 289.00 [lb_av] MEDEN T ([facility]) Oxygen saturation in Arterial blood by Pulse oximetry 97 % 97 % [facility] ([facility]) Respiratory rate 16 /min 16 /min [facility] ( [facility]) Body temperature 97.5 [degF] 97.5 [degF] [facility] ([facility]) Heart rate 74 /min 74 /min [facility] Diastolic blood pressure 62 mm[Hg] 62 mm[Hg] [facility] ([facility]) Systolic blood pressure 126 mm[Hg] 126 mm[Hg] M EDENT ([facility]) Diastolic blood pressure--sitting 70 mm[Hg] 70 mm[Hg] [facility] ([facility]) Manual B/P Systolic blood pressure--sitting 100 mm[Hg] 100 mm[Hg] [facility] ([facility]) Manual B/P Heart rate 61 /min 61 /min [facility] ([facility]) Body mass index (BMI) [Ratio] 49.3 kg/m2 49.3 k g/m2 [facility] ([facility]) Body height 64 [in_i] 64 [in_i] [facility] ([facility]) 5'4" Body weight 287.00 [lb_av] 287.00 [lb_av] MEDEN T ([facility]) Body surface area 6.07 m2 6.07 m2 [facility] ([facility]) Body mass index (BMI) [Ratio] 493.6 kg/m2 493.6 kg/m2 [facility] ([facility]) Body height 64 [in_i] 64 [in_i] [facility] ([facility]) 5'4" Body weight 1304.554 kg 1304.554 kg [facility] ([facility]) Body weight 2876.00 [lb_av] 2876.00 [lb_av] MED ENT ([facility]) Body temperature 97.8 [degF] 97.8 [degF] [facility] ([facility]) Heart rate 76 /min 76 /min [facility] ([facility]) Diastolic blood pressure 88 mm[Hg] 88 mm[Hg] [facility] ([facility]) Systolic blood pressure 132 mm[Hg] 132 mm[Hg] M EDENT ([facility]) Body surface area 2.28 m2 2.28 m2 [facility] ([facility]) Body mass index (BMI) [Ratio] 49.3 kg/m2 49.3 k g/m2 [facility] ([facility]) Body height 64 [in_i] 64 [in_i] [facility] ([facility]) 5'4" Body weight 130.183 kg 130.183 kg [facility] ([facility]) Body weight 287.00 [lb_av] 287.00 [lb_av] MEDEN T ([facility]) Oxygen saturation in Arterial blood by Pulse oximetry 98 % 98 % [facility] ([facility]) Respiratory rate 20 /min 20 /min [facility] ( [facility]) Body temperature 97.8 [degF] 97.8 [degF] [facility] ([facility]) Heart rate 88 /min 88 /min [facility] ([facility]) Diastolic blood pressure 78 mm[Hg] 78 mm[Hg] [facility] ([facility]) Systolic blood pressure 132 mm[Hg] 132 mm[Hg] M [facility]ENT ([facility]) Body surface area 2.30 m2 2.30 m2 [facility] ([facility]) Body mass index (BMI) [Ratio] 50.1 kg/m2 50.1 k g/m2 [facility] ([facility]) Body height 64 [in_i] 64 [in_i] [facility] ([facility]) 5'4" Body weight 132.451 kg 132.451 kg [facility] ([facility]) Body weight 292.00 [lb_av] 292.00 [lb_av] MEDEN T ([facility]) Heart rate 70 /min 70 /min [facility] ([facility]) Diastolic blood pressure 83 mm[Hg] 83 mm[Hg] [facility] ([facility]) Systolic blood pressure 128 mm[Hg] 128 mm[Hg] M EDENT ([facility]) Diastolic blood pressure mm[Hg] eCW1 ([facility]) Systolic blood pressure 122 mm[Hg] 122 mm[Hg] e CW1 ([facility]) Body temperature 98.2 [degF] 98.2 [degF] eCW1 ( [facility]) Respiratory rate 18 /min 18 /min eCW1 ([facility]) Heart rate 88 /min 88 /min eCW1 ([facility]) Body mass index (BMI) [Ratio] 49.77 kg/m2 49.77 kg/m2 W1 ([facility]) Body height 64 [in_us] 64 [in_us] eCW1 ([facility]) Body weight Measured 290 [lb_av] 290 [lb_av] eC W1 ([facility]) Body weight 131.090 kg 131.090 kg [facility] ([facility]) Body weight 289.00 [lb_av] 289.00 [lb_av] MEDEN T ([facility]) Oxygen saturation in Arterial blood by Pulse oximetry 97 % 97 % [facility] ([facility]) Respiratory rate 18 /min 18 /min [facility] ( [facility]) Body temperature 98.1 [degF] 98.1 [degF] [facility] ([facility]) Heart rate 72 /min 72 /min [facility] ([facility]) Diastolic blood pressure 70 mm[Hg] 70 mm[Hg] [facility] ([facility]) Systolic blood pressure 124 mm[Hg] 124 mm[Hg] M EDENT ([facility]) Patient Treatment Plan of Care Planned Activity Planned Date Details Description Data Source (s) Acetaminophen 325 MG / Oxycodone Hydrochloride 5 MG Or al Tablet 09/29/2019 12:00:[address] [facility] Zofran ODT 4 MG 08/09/2019 12:00:00 AM [place] [id number] ([facility]) duloxetine 60 MG Delayed Release Oral Capsule 07/31/2019 12:00:00 A M [facility] meloxicam 15 MG Oral Tablet 06/29/2019 12:00:00 AM [facility] duloxetine 20 MG Delayed Release Oral Capsule 04/29/2019 12:00:00 A M [facility] cetirizine hydrochloride 10 MG Oral Tablet [facility]
[2020-09-12] MEDS ORDERED: propofoL 200 MG/20 ML VIAL As Ordered ONE ×2 (09:40→09:57)
--- NOTE | 2020-09-12 10:18 | ROOR ---
Patient Name: Sintia Braun Procedure Date: 09/12/2020 9:36 AM Date of : 1975 Age: 44 Room: [facility] Gender: Female Note Status: Finalized Procedure: Colonoscopy Indications: Family history of colon cancer in a first-degree relative before age 60 years, Change in bowel habits Providers: Michael Eugene MD Referring MD: JAKE GARCIA MD Requesting Provider: Medicines: Monitored Anesthesia Care Complications: No immediate complications. Procedure: Pre-Anesthesia Assessment: - Prior to the procedure, a History and Physical was performed, and patient medications and allergies were reviewed. The patient is competent. The risks and benefits of the procedure and the sedation options and risks were discussed with the patient. All questions were answered and informed consent was obtained. Patient identification and proposed procedure were verified by the physician, the nurse and the anesthesiologist in the procedure room. Mental Status Examination: alert and oriented. Airway Examination: normal oropharyngeal airway and neck mobility. Respiratory Examination: clear to auscultation. CV Examination: normal. Prophylactic Antibiotics: The patient does not require prophylactic antibiotics. Prior Anticoagulants: The patient has taken no previous anticoagulant or antiplatelet agents. ASA Grade Assessment: II - A patient with mild systemic disease. After reviewing the risks and benefits, the patient was deemed in satisfactory condition to undergo the procedure. The anesthesia plan was to use monitored anesthesia care (MAC). Immediately prior to administration of medications, the patient was re-assessed for adequacy to receive sedatives. The heart rate, respiratory rate, oxygen saturations, blood pressure, adequacy of pulmonary ventilation, and response to care were monitored throughout the procedure. The physical status of the patient was re-assessed after the procedure. The Colonoscope was introduced through the anus and advanced to the terminal ileum, with identification of the appendiceal orifice and IC valve. The colonoscopy was performed without difficulty. The patient tolerated the procedure well. The quality of the bowel preparation was good. The terminal ileum, ileocecal valve, appendiceal orifice, and rectum were photographed. Scope insertion time was 2 minutes. Scope withdrawal time was 8 minutes. The total duration of the procedure was 10 minutes. Findings: The perianal and digital rectal examinations were normal. The terminal ileum appeared normal. Two sessile polyps were found in the sigmoid colon. The polyps were 3 to 4 mm in size. These polyps were removed with a jumbo cold forceps. Resection and retrieval were complete. Verification of patient identification for the specimen was done by the physician and nurse using the patient's name, date and medical record number. Estimated blood loss was minimal. The colon (entire examined portion) was moderately tortuous. Non-bleeding external and internal hemorrhoids were found during retroflexion. The hemorrhoids were medium-sized. Impression: - The examined portion of the ileum was normal. - Two 3 to 4 mm polyps in the sigmoid colon, removed with a jumbo cold forceps. Resected and retrieved. - Tortuous colon. - Non-bleeding external and internal hemorrhoids. Recommendation: - Patient has a contact number available for emergencies. The signs and symptoms of potential delayed complications were discussed with the patient. Return to normal activities tomorrow. Written discharge instructions were provided to the patient. - High fiber diet. - Continue present medications. - Use fiber, for example Citrucel, Fibercon, Konsyl or Metamucil. - Await pathology results. - Repeat colonoscopy in 5 years for screening purposes, for surveillance based on pathology results and due to family history of colon cancer. - Telephone GI clinic for pathology results in 2 weeks. - Return to primary care physician. Procedure Code(s): --- Professional --- 07554, Colonoscopy, flexible; with biopsy, single or multiple Diagnosis Code(s): --- Professional --- K64.8, Other hemorrhoids K63.5, Polyp of colon Z80.0, Family history of malignant neoplasm of digestive organs R19.4, Change in bowel habit Q43.8, Other specified congenital malformations of intestine CPT copyright 2019 [employer] [place] [employer]. All rights reserved. The codes documented in this report are preliminary and upon commercial development manager review may be revised to meet current compliance requirements. Michael Eugene MD Michael Eugene MD 09/12/2020 10:18:03 AM Electronically signed by Michael Eugene MD Number of Addenda: 0 Note Initiated On: 09/12/2020 9:36 AM Estimated Blood Loss: Estimated blood loss was minimal.
[2020-09-12 10:30] VITALS: BP 127/81
== END 2020-09-12 10:38 | disposition home or self-care (01) ==
LOC: M OPP 08:37
PROVIDERS: ATTEND Internal Medicine Gastroenterology
DX: R19.4 Change in bowel habit (principal); Z80.0 Family history of malignant neoplasm of digestive organs; K63.5 Polyp of colon; Q43.8 Other specified congenital malformations of intestine; K64.8 Other hemorrhoids; M19.90 Unspecified osteoarthritis, unspecified site; F41.9 Anxiety disorder, unspecified; F32.9 Major depressive disorder, single episode, unspecified; G43.909 Migraine, unspecified, not intractable, without status migrainosus; G47.30 Sleep apnea, unspecified; Z87.891 Personal history of nicotine dependence; Z79.899 Other long term (current) drug therapy